=== PATIENT | female | born 1985 | race Caucasian/White ===

== ENCOUNTER 2021-07-24 14:50 | Outpatient (CLI) | payer OTHER, SELFPAY ==
[2021-07-24 15:06] LABS: Hematocrit 39.5 % (37.0-47.0); Hemoglobin 13.1 g/dL (12.0-15.0); Mean Corpuscular HGB Conc 33.2 g/dl (32-36); Mean Corpuscular Hemoglobin 32.3 pg (26-34); Mean Corpuscular Volume 97.3 fl (80-100); Mean Platelet Volume 9.7 fl (7.4-10.4); Platelet Count Result 247 k/mm3 (150-375); Red Blood Count 4.06 M/mm3 (4.2-5.4); Red Cell Distribution Width 12.1 % (11.5-14.5); White Blood Count 5.3 K/mm3 (4.5-10.0)
[2021-07-24 15:15] LABS: Alanine Aminotransferase 14 U/L (6-35); Albumin Level 4.3 g/dL (3.5-5.1); Alkaline Phosphatase 35 U/L (38-126); Anion Gap 7 mmol/L (8-16); Aspartate Amino Transferase 22 U/L (14-36); Bilirubin,Total 0.8 mg/dL (0.2-1.3); Blood Urea Nitrogen 9 mg/dL (7-17); Calcium 8.9 mg/dL (8.4-10.2); Carbon Dioxide 24 mmol/L (22-30); Chloride 107 mmol/L (98-107); Estimated Glomerular Filt Rate > 60; Glucose 87 mg/dL (65-110); Potassium 3.8 mmol/L (3.4-5.0); Sodium 138 mmol/L (137-145)
[2021-07-24 16:09] LABS: Thyroid Stimulating Hormone Reflex 0.999 uIU/mL (0.465-4.68)
[2021-07-28 16:50] LABS: Gliadin AB, IgG <1.0 U/mL (<15.0); Reticulin IgA Negative (Negative); TTG IGA AB <1.0 U/mL (<15.0)
== END 2021-07-24 14:51 | disposition home or self-care (01) ==
LOC: ANHLAB 14:54
PROVIDERS: PCP Family Medicine; Visit Provider Nurse Practitioner
DX: R11.0 Nausea (principal); R19.7 Diarrhea, unspecified; R10.9 Unspecified abdominal pain; Z98.84 Bariatric surgery status
CPT/HCPCS: 36415; 80053; 83516; 84443; 85027; 86255

== ENCOUNTER 2021-10-20 14:16 | Emergency (ER) | payer OTHER, SELFPAY ==
[2021-10-20 14:36] VITALS: BP 115/77; PULSE 81; RESP 14; TEMP 36.7; O2SAT 98
[2021-10-20] MEDS: KETOROLAC (*BKC) 60 MG/2 ML VIAL IM (16:09)
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
== END 2021-10-20 16:30 | disposition home or self-care (01) ==
PROVIDERS: Emergency Provider Emergency Medicine; PCP Nurse Practitioner Family
DX: S16.1XXA Strain of muscle, fascia and tendon at neck level, initial encounter (principal); S09.90XA Unspecified injury of head, initial encounter; F41.9 Anxiety disorder, unspecified; F32.9 Major depressive disorder, single episode, unspecified; V43.62XA Car passenger injured in collision with other type car in traffic accident, initial encounter
CPT/HCPCS: 96372; 99283; J1885

== ENCOUNTER 2021-10-24 12:52 | Emergency (ER) | payer OTHER, SELFPAY ==
--- NOTE | ~2021-10-24 | CT_ITS ---
EXAMINATION: CT brain wo con INDICATION: Persistent headache COMPARISON: None TECHNIQUE: Standard unenhanced head CT. The dose-length product (DLP) was 605.33 mGy-cm. The mA was a djusted according to patient size. Iterative reconstruction technique was employed. FINDINGS: There is no intracranial hemorrhage, acute infarction, or abnormal mass lesion. The ventric les are normal. There is no abnormal mass effect or midline shift. The morillo-white matter differentiat ion is normal. The basal cisterns are patent. The orbits are normal. The paranasal sinuses, mastoids and calvarium are normal. IMPRESSION: 1. No acute intracranial abnormality. Reviewed, dictated and finalized at location A.
[2021-10-24 13:00] VITALS: BP 129/86; PULSE 83; RESP 20; TEMP 36.7; O2SAT 98
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
[2021-10-24] MEDS: SODIUM CHLORIDE 0.9% IV 1,000 ML 999 ML IV CONT (13:39)
[2021-10-24] MEDS: diphenhydrAMINE HCl INJ 50 MG/ML VIAL 25 MG IV PUSH (13:40)
[2021-10-24] MEDS: PROCHLORPERAZINE EDISYLATE 10 MG/2 ML VIAL IV PUSH (13:40)
[2021-10-24] MEDS: KETOROLAC 30 MG/ML VIAL (*BKC) IV PUSH (16:22)
[2021-10-24 17:11] VITALS: BP 132/62; PULSE 78; RESP 20; O2SAT 99
== END 2021-10-24 17:12 | disposition home or self-care (01) ==
PROVIDERS: Emergency Provider Emergency Medicine; PCP Nurse Practitioner Family
DX: S06.0X0A Concussion without loss of consciousness, initial encounter (principal); V49.50XA Passenger injured in collision with unspecified motor vehicles in traffic accident, initial encounter; F12.90 Cannabis use, unspecified, uncomplicated; F41.8 Other specified anxiety disorders; F43.10 Post-traumatic stress disorder, unspecified; G47.00 Insomnia, unspecified; Z98.84 Bariatric surgery status; Z87.891 Personal history of nicotine dependence
CPT/HCPCS: 70450; 96361; 96374; 96375; 99284; J0780; J1200; J1885; J7030

== ENCOUNTER 2021-12-08 19:15 | Emergency (ER) | payer OTHER, SELFPAY ==
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
--- NOTE | 2021-12-08 19:24 | PC.NURSE ---
Walks well with steady gait. Appears NAD. Able to get up and down from the chair without difficulty.
[2021-12-08 19:27] VITALS: BP 119/77; PULSE 93; RESP 16; TEMP 37.3; O2SAT 100
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
== END 2021-12-08 20:16 | disposition home or self-care (01) ==
PROVIDERS: Emergency Provider Registered Nurse; PCP Nurse Practitioner Family
DX: M54.50 Low back pain, unspecified (principal); F41.9 Anxiety disorder, unspecified; F32.A Depression, unspecified; Z98.84 Bariatric surgery status
CPT/HCPCS: 72100; 99213; G0463

== ENCOUNTER 2022-01-28 10:34 | Outpatient (CLI) | payer OTHER, SELFPAY ==
--- NOTE | ~2022-01-28 | MR_ITS ---
EXAMINATION: MR lumbar spine wo con DATE: 01/28/2022 11:08 INDICATION: lumbar pain with radiculopathy both thighs . TECHNIQUE: Magnetic resonance imaging (MRI) of the lumbar spine was performed without intravenous con trast. Sequences included sagittal T2-weighted FSE, sagittal T2-weighted FS FSE, sagittal T1-weighted FSE, and axial T2-weighted FSE. COMPARISON: In the used to drink and the peel comp x-ray L-spine 12/08/2021 FINDINGS: Small volume free pelvic fluid, likely physiologic. The last fully formed and hydrated disc is designated L5-S1. The marrow signal is benign and homogenous. Conus terminates at L2. Loss of dis c height and hydration at L4-5 and L5-S1. The following disc levels are specifically discussed: T11-T12: The disc does not extend beyond the endplate margin. There is no facet joint osteoarthritis. There is no neural foraminal stenosis. There is no central canal stenosis. T12-L1: The disc does not extend beyond the endplate margin. There is mild facet joint osteoarthritis . There is no neural foraminal stenosis. There is no central canal stenosis. L1-L2: The disc does not extend beyond the endplate margin. There is no facet joint osteoarthritis. T here is mild neural foraminal stenosis. There is no central canal stenosis. L2-L3: The disc does not extend beyond the endplate margin. There is no facet joint osteoarthritis. T here is mild neural foraminal stenosis. There is no central canal stenosis. L3-L4: The disc does not extend beyond the endplate margin. There is moderate facet joint osteoarthri tis. There is no neural foraminal stenosis. There is no central canal stenosis. L4-L5: Mild diffuse disc bulge. There is moderate facet joint osteoarthritis. There is no neural fora dell stenosis. There is no central canal stenosis. L5-S1: Mild diffuse disc bulge with a focal transversely oriented posterior disc rent and a 4 mm cent ral posterior protrusion. There is mild facet joint osteoarthritis. There is no neural foraminal sten osis. There is no central canal stenosis. IMPRESSION: Lower lumbar degenerative disc disease, moderate at L5-S1. Multilevel mild and moderate facet arthrop athy. Reviewed, dictated and finalized at location K. ITUTIONAL CUSTODIAN IMPRESSION: Lower lumbar degenerative disc disease, moderate at L5-S1. Multilevel mild and moderate facet arthropathy.
== END 2022-01-28 10:35 ==
LOC: MICIMG 10:35
PROVIDERS: PCP Nurse Practitioner Family; Visit Provider Nurse Practitioner Family
DX: M51.17 Intervertebral disc disorders with radiculopathy, lumbosacral region (principal)
CPT/HCPCS: 72148

== ENCOUNTER 2022-02-02 08:00 | Outpatient (RCR) | payer OTHER, SELFPAY ==
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
--- NOTE | 2022-01-23 16:24 | PCPTNOTE ---
Late Entry- Note was not completed due to therapist error Note from treatment 01/12/2022 Pt was present for treatment and received manual therapy services as note indicated. STM to lumbar paraspinals, bilat QL mm, trapezius darrell upper trapezius mm After STM, pt PROM performed to c-spine L rotation with soft tissue traction to lower c-spine to improve rotation. Pt ended session with e-stim to cervical and lumbar spine in L sidelying x 20 min She reported improvement after session in her neck and back pain. While alignment of lower spine and pelvis appear to be improving, upper trap tension was greatly increased today. Pt also reports significant fatigue d/t outside factors and how busy she is. Pt will benefit from cont therapy to cont to improve her pain and function.
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
== END 2022-02-13 10:38 | disposition home or self-care (01) ==
LOC: ANHHIPT 08:00
PROVIDERS: PCP Nurse Practitioner Family; Visit Provider Nurse Practitioner
DX: S46.911D Strain of unspecified muscle, fascia and tendon at shoulder and upper arm level, right arm, subsequent encounter (principal)
CPT/HCPCS: 97014; 97110; 97140; 97162; G0283

== ENCOUNTER 2022-03-30 00:45 | Day surgery (SDC) | payer OTHER, SELFPAY ==
[2022-03-23 09:04] VITALS: BMI 25.4
--- NOTE | 2022-03-27 11:41 | PM.HPGS ---
History of Present Illness History of Present Illness Consent: Risks, benefits, and alternatives have been discussed and questions answered. Patient agrees to proceed with procedure. Chief complaint: diarrhea Narrative: Della Sylvester is a 36 year old female who had stated at A recent office visit she was having 3-4 loose watery bowel movements per day with urgency and at times with incontinence that has been ongoing at least 1 year.? She does have sharp lower abdominal cramping prior to bowel movement which then dissipates after a bowel movement. Colestipol did help her symptoms. apparently last month when her prescription was refilled, it was for 1 tablet each month. She said the pharmacy was supposed to call our office to clarify that but I do not see that they every did. She has had prior gastric sleeve surgery and had been bothered by nausea in the past. Review of Systems Review of Systems: All systems reviewed & are unremarkable except as noted in HPI and below PMFSH Past Medical History Medical History Anxiety Behcets syndrome delivery delivered Depressed Depression with anxiety Former smoker Insomnia Lumbar degenerative disc disease PTSD (post-traumatic stress disorder) Surgical History Surgical History H/O gastric sleeve (~2014) H/O hysterectomy for benign disease (~2011) no cervix, both ovaries remain Hx of arthroscopic knee surgery Hx of section 2010 Family History Family History Mother Alcohol abuse Father Heart disease Cerebrovascular accident Alcohol abuse Grandparent Cervical cancer Lung cancer Social History Social History Social History: lives with family ( 2 children) Smoking status: Current every day smoker Tobacco type: cigarettes Alcohol intake: never Alcohol use details: rarely Substance use: current Substance use type: marijuana Lack of Transportation: No Lack of Food: Never True Current Housing: I Have Housing Concerned About Future Housing: No Difficulty Paying Gas/Electric Bills: No Difficulty Paying for Meds: No Currently Unemployed: No Education: Associate Degree Difficulty w/ Childcare or Family Care: No Living arrangements: with family Additional living arrangements comments: Occupation/Education: occupation 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 Sexual Orientation (if Verbalized by the Patient): Straight or Heterosexual Spiritual care concerns: No Agree to blood products: Yes Meds Home Medications and Allergies Home Medications Medication Instructions Recorded Confirmed Type ondansetron 4 mg disintegrating 4 mg PO Q8H PRN nausea and 06/17/21 03/23/22 Rx tablet vomiting #1 tablet brexpiprazole 4 mg tablet (Rexulti) 4 mg PO DAILY #30 tabs 06/24/21 03/23/22 Rx bupropion HCl 150 mg 24 hr tablet, 150 mg PO QAM #30 tabs 06/24/21 03/23/22 Rx extended release topiramate 50 mg tablet 50 mg PO DAILY #30 tabs 06/24/21 03/23/22 Rx trazodone 150 mg tablet 150 mg PO QHS PRN sleep #30 tabs 06/24/21 03/23/22 Rx diazepam 2 mg tablet (Valium) 2 mg PO QHS PRN Anxiety 10/27/21 03/23/22 History multivitamin 1 tablet PO DAILY 10/27/21 03/23/22 History venlafaxine 75 mg tablet 75 mg PO DAILY 10/27/21 03/23/22 History omeprazole 40 mg capsule,delayed See Rx Instructions .Route 02/25/22 03/23/22 Rx release .COMPLEX #90 caps gabapentin 300 mg capsule 300 mg PO TID 03/23/22 03/23/22 History sumatriptan succinate 50 mg tablet 50 mg PO PRE-TRANSFUSION 03/23/22 03/23/22 History (Imitrex) colestipol 1 gram tablet 1 g PO DAILY #30 tabs 03/30/22 Rx Allergies Allergy/AdvReac Type Severity Reaction Status Date / Time Sulfa
[2022-03-30 11:39] VITALS: BP 107/67; PULSE 78; RESP 18; TEMP 36.6; O2SAT 99
[2022-03-30] MEDS: LACTATED RINGERS 1,000 ML 150 ML IV CONT (11:41)
--- NOTE | 2022-03-30 12:56 | WPDANESEPPF ---
Anes - Initial Pre Proc Eval Procedure: Operation Date: 03/30/22 13:00 Proposed Procedures p Colonoscopy - Juan Jose Hawley MD Date/Time: 03/30/22 12:56 Surgeon: Juan Jose Hawley MD Pre Op Diagnosis: diarrhea Patient Data Age: 36 Gender: F Height: 1.52 m Weight: 58 kg Last Vital Signs Temp 97.9 F 03/30/22 11:39 Pulse 78 03/30/22 11:39 Resp 18 03/30/22 11:39 BP 107/67 03/30/22 11:39 Pulse Ox 99 03/30/22 11:39 O2 Del Method Room Air 03/30/22 11:39 Allergies Allergy/AdvReac Type Severity Reaction Status Date / Time Sulfa (Sulfonamide Allergy Severe rash Verified 03/30/22 11:38 Antibiotics) nitrofurantoin AdvReac Severe vomiting Verified 03/30/22 11:38 [From Macrobid] Home Medications Medication Instructions Recorded Confirmed Type ondansetron 4 mg disintegrating 4 mg PO Q8H PRN nausea and 06/17/21 03/23/22 Rx tablet vomiting #1 tablet brexpiprazole 4 mg tablet (Rexulti) 4 mg PO DAILY #30 tabs 06/24/21 03/23/22 Rx bupropion HCl 150 mg 24 hr tablet, 150 mg PO QAM #30 tabs 06/24/21 03/23/22 Rx extended release topiramate 50 mg tablet 50 mg PO DAILY #30 tabs 06/24/21 03/23/22 Rx trazodone 150 mg tablet 150 mg PO QHS PRN sleep #30 tabs 06/24/21 03/23/22 Rx diazepam 2 mg tablet (Valium) 2 mg PO QHS PRN Anxiety 10/27/21 03/23/22 History multivitamin 1 tablet PO DAILY 10/27/21 03/23/22 History venlafaxine 75 mg tablet 75 mg PO DAILY 10/27/21 03/23/22 History omeprazole 40 mg capsule,delayed See Rx Instructions .Route 02/25/22 03/23/22 Rx release .COMPLEX #90 caps gabapentin 300 mg capsule 300 mg PO TID 03/23/22 03/23/22 History sumatriptan succinate 50 mg tablet 50 mg PO PRE-TRANSFUSION 03/23/22 03/23/22 History (Imitrex) colestipol 1 gram tablet 1 g PO DAILY #30 tabs 03/30/22 Rx Patient hx anesthesia problems: none Family hx anesthesia problems: none Results Review: All pre-operative results and documents have been reviewed as part of the pre-operative evaluation. [facility] Past Medical History Medical History Anxiety Behcets syndrome delivery delivered Depressed Depression with anxiety Former smoker Insomnia Lumbar degenerative disc disease PTSD (post-traumatic stress disorder) Surgical History Surgical History H/O gastric sleeve (~2014) H/O hysterectomy for benign disease (~2011) no cervix, both ovaries remain Hx of arthroscopic knee surgery Hx of section 2008, 2010 Family History Family History Mother Alcohol abuse Father Heart disease Cerebrovascular accident Alcohol abuse Grandparent Cervical cancer Lung cancer Social History Social History Social History: lives with family ( 2 children) Smoking status: Current every day smoker Tobacco type: cigarettes Alcohol intake: never Alcohol use details: rarely Substance use: current Substance use type: marijuana Lack of Transportation: No Lack of Food: Never True Current Housing: I Have Housing Concerned About Future Housing: No Difficulty Paying Gas/Electric Bills: No Difficulty Paying for Meds: No Currently Unemployed: No Education: Associate Degree Difficulty w/ Childcare or Family Care: No Living arrangements: with family Additional living arrangements comments: Occupation/Education: occupation 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
[2022-03-30 13:38] VITALS: BP 87/55; PULSE 57; RESP 18; O2SAT 100
[2022-03-30 13:48] VITALS: BP 91/56; PULSE 64; RESP 15; O2SAT 100
[2022-03-30 13:58] VITALS: BP 96/68; PULSE 60; RESP 22; O2SAT 100
== END 2022-03-30 14:05 | disposition home or self-care (01) ==
PROVIDERS: PCP Nurse Practitioner Family; Visit Provider Internal Medicine Gastroenterology
PROC: 0DJD8ZZ Inspection of Lower Intestinal Tract, Via Natural or Artificial Opening Endoscopic (ICD-10-PCS; CPT 45378; principal; 2022-03-30 13:00)
DX: R19.7 Diarrhea, unspecified (principal); K62.1 Rectal polyp; M35.2 Behcet's disease; F41.8 Other specified anxiety disorders; F43.10 Post-traumatic stress disorder, unspecified; Z98.84 Bariatric surgery status; F17.210 Nicotine dependence, cigarettes, uncomplicated; F12.90 Cannabis use, unspecified, uncomplicated
CPT/HCPCS: 45385; 45380; 88305; J2001; J2704; J7120

== ENCOUNTER 2022-05-18 14:18 | Outpatient (CLI) | payer OTHER, SELFPAY ==
[2022-05-18 15:04] LABS: Appearance Urine Clear (Clear); Bilirubin Urine Negative (Negative); Blood Urine Negative (Negative); Color Urine Yellow (Yellow); Glucose Urine UA Negative (Negative); Ketones Urine Negative (Negative); Leukocyte Esterase Ur Negative LEU/UL (Negative); Nitrate Urine Negative (Negative); Protein Urine Negative (Negative); Specific Grav Ur 1.004 (1.001-1.035); Urobilinogen Urine 0.2 mg/dL (<2.0)
[2022-05-18 15:14] LABS: Alanine Aminotransferase 26 U/L (6-35); Albumin Level 4.4 g/dL (3.5-5.1); Alkaline Phosphatase 36 U/L (38-126); Anion Gap 6 mmol/L (8-16); Aspartate Amino Transferase 28 U/L (14-36); Blood Urea Nitrogen 6 mg/dL (7-17); Calcium 9.1 mg/dL (8.4-10.2); Carbon Dioxide 28 mmol/L (22-30); Chloride 102 mmol/L (98-107); Estimated Glomerular Filt Rate > 60; Glucose 84 mg/dL (65-110); Potassium 4.1 mmol/L (3.4-5.0); Sodium 136 mmol/L (137-145)
[2022-05-18 15:26] LABS: Iron 104 ug/dL (37-170)
[2022-05-18 15:35] LABS: Percent Iron Saturation 27 % (20-50)
[2022-05-18 15:36] LABS: Add Urine Microscopic? NO
[2022-05-18 15:44] LABS: Thyroid Stimulating Hormone 0.531 uIU/mL (0.465-4.680)
[2022-05-18 16:20] LABS: Folic Acid 17.7 ng/mL (2.76->20)
== END 2022-05-18 14:19 | disposition home or self-care (01) ==
LOC: ANHLAB 14:20
PROVIDERS: PCP Nurse Practitioner Family; Visit Provider Nurse Practitioner Family
DX: R32 Unspecified urinary incontinence (principal); R85.7 Abnormal histological findings in specimens from digestive organs and abdominal cavity; K52.9 Noninfective gastroenteritis and colitis, unspecified; Z98.84 Bariatric surgery status
CPT/HCPCS: 36415; 80053; 81003; 81376; 81382; 82607; 82746; 83540; 83550; 84443

== ENCOUNTER 2022-06-12 08:20 | Emergency (ER) | payer OTHER, SELFPAY ==
--- NOTE | 2022-06-12 08:23 | ED.FEMALEGU ---
HPI - Female Genitourinary General Chief complaint: Urogenital-Female Stated complaint: Female Urogenital Time Seen by Provider: 06/12/22 08:44 Source: patient and RN notes reviewed Mode of arrival: ambulatory Limitations: no limitations History of Present Illness MD elicited complaint: UTI Related Data Home Medications Medication Instructions Recorded Confirmed diazepam 2 mg tablet (Valium) 2 mg PO QHS PRN Anxiety 10/27/21 06/12/22 multivitamin 1 tablet PO DAILY 10/27/21 06/12/22 venlafaxine 75 mg tablet 75 mg PO DAILY 10/27/21 06/12/22 sumatriptan succinate 50 mg tablet 50 mg PO PRE-TRANSFUSION 03/23/22 06/12/22 (Imitrex) gabapentin 300 mg capsule 600 mg PO TID 05/18/22 06/12/22 Allergies Allergy/AdvReac Type Severity Reaction Status Date / Time nitrofurantoin AdvReac Intermediate vomiting Verified 06/12/22 08:27 [From Macrobid] Sulfa (Sulfonamide AdvReac Mild rash Verified 06/12/22 08:27 Antibiotics) Review of Systems Review of Systems: CONSTITUTIONAL: Denies malaise, chills, sweats, or fever. CARDIOVASCULAR: Denies chest pain, palpitations, or edema. RESPIRATORY: Denies cough or dyspnea. GASTROINTESTINAL: Denies abdominal pain, nausea, vomiting, diarrhea GENITOURINARY: Reports dysuria, frequency, urgency, suprapubic pressure. Denies flank pain or hematuria. SKIN: Denies rash or itching. MUSCULOSKELETAL: Denies back pain or myalgia. All systems reviewed & are unremarkable except as noted in HPI and below PMFSH Past Medical History Medical History (Updated 06/12/22 @ 08:57 by Leah Wyman NP) Anorexia Anxiety Behcets syndrome delivery delivered Depressed Depression with anxiety Former smoker Insomnia Lumbar degenerative disc disease PTSD (post-traumatic stress disorder) Right lower quadrant pain Urinary incontinence Surgical History Surgical History H/O gastric sleeve (~2014) H/O hysterectomy for benign disease (~2011) no cervix, both ovaries remain Hx of arthroscopic knee surgery Hx of section 2008, 2010 Family History Family History Mother Alcohol abuse Father Heart disease Cerebrovascular accident Alcohol abuse Grandparent Cervical cancer Lung cancer Social History Social History Social History: lives with family ( 2 children) Smoking status: Current every day smoker Tobacco type: cigarettes Alcohol intake: never Alcohol use details: rarely Substance use: current Substance use type: marijuana Lack of Transportation: No Lack of Food: Never True Current Housing: I Have Housing Concerned About Future Housing: No Difficulty Paying Gas/Electric Bills: No Difficulty Paying for Meds: No Currently Unemployed: No Education: Associate Degree Difficulty w/ Childcare or Family Care: No Living arrangements: with family Additional living arrangements comments: Occupation/Education: occupation 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 There is no relevant family history pertinent to the presenting complaint Exam Narrative: GENERAL: Well-appearing, well-nourished, and in no acute distress. HEAD: Normocephalic. EYES: PERRLA, conjunctivae clear. NECK: Supple. No lymphadenopathy CHEST: Clear to auscultation. No respiratory distress. HEART: Regular rate and rhythm. ABDOMEN: Soft, nontender upon palpation, nondistended, normal active bowel sounds, no palpable or pulsatile masses, no guarding. No CVA tenderness SKIN: Warm, dry, no rash. NEURO: Alert and oriente
[2022-06-12 08:40] VITALS: BP 105/71; PULSE 97; RESP 18; TEMP 36.7; O2SAT 100
--- NOTE | 2022-06-14 12:07 | PC.NURSE ---
FINAL URINE CULTURE RESULT: GREATERE THAN 100,000 CFU/ML OF E COLI. PER C&S PT IS ON AUGMENTIN, NO FURTHER ACTION NEEDED.
== END 2022-06-12 09:07 | disposition home or self-care (01) ==
PROVIDERS: Emergency Provider Nurse Practitioner; PCP Nurse Practitioner Family
DX: N39.0 Urinary tract infection, site not specified (principal); R31.9 Hematuria, unspecified; F41.9 Anxiety disorder, unspecified; F32.A Depression, unspecified; F17.210 Nicotine dependence, cigarettes, uncomplicated
CPT/HCPCS: 81003; 87077; 87086; 87186; 99213; G0463

== ENCOUNTER 2022-08-17 19:30 | Observation (INO) | payer OTHER, SELFPAY ==
--- NOTE | ~2022-08-17 | MR_ITS ---
EXAMINATION: MR lumbar spine wo/w con DATE: 08/18/2022 07:09 INDICATION: Incontinence. Bilateral leg weakness. TECHNIQUE: Magnetic resonance imaging (MRI) of the lumbar spine was performed without and with 12 mL MultiHance intravenous contrast. COMPARISON: CT thoracic spine 08/17/2022 FINDINGS: There is 5 degrees levocurvature of lumbar spine. Vertebral body heights are normal. There is mildly decreased disc height at L4-L5 and L5-S1. The distal spinal cord signal intensity is normal . The conus medullaris is at L2. The following disc levels are specifically discussed: L1-L2: The disc does not extend beyond the endplate margin. There is no facet joint osteoarthritis. T here is no neural foraminal stenosis. There is no central canal stenosis. L2-L3: The disc does not extend beyond the endplate margin. There is no facet joint osteoarthritis. T here is no neural foraminal stenosis. There is no central canal stenosis. L3-L4: The disc does not extend beyond the endplate margin. There is mild bilateral facet joint osteo arthritis. There is no neural foraminal stenosis. There is no central canal stenosis. L4-L5: The disc is bulging and has an annular fissure. There is mild bilateral facet joint osteoarthr itis. There is mild bilateral neural foraminal stenosis. There is no central canal stenosis. L5-S1: There is a central extrusion. There is mild bilateral facet joint osteoarthritis. There is no neural foraminal stenosis. There is mild central canal stenosis. IMPRESSION: 1. Mild lumbar spondylosis. Reviewed, dictated and finalized at location A. IMPRESSION: 1. Mild lumbar spondylosis.
--- NOTE | ~2022-08-17 | CT_ITS ---
EXAMINATION: CT cervical spine wo con DATE: 08/17/2022 21:13 INDICATION: history herniated disc TECHNIQUE: Computed tomography (CT) of the cervical spine was performed without intravenous contrast. Automated exposure control and iterative reconstruction technique were employed. The dose-length pro duct was 209.10 mGy-cm. COMPARISON: None. FINDINGS: Vertebral Body Alignment: Intact. Mild straightening of the upper cervical spine which can occur with positioning or muscle spasm. Craniocervical and atlantoaxial alignment: Mild degenerative change. Alignment intact. Osseous structures/fracture: No evidence of a lytic or blastic process in the visualized spine. No e vidence of acute fracture. . Cervical soft tissues: The paraspinal soft tissues planes are maintained. Degenerative changes: Mild multilevel degenerative disc disease. No severe central canal or neural fo raminal narrowing. IMPRESSION: No acute fracture or traumatic malalignment in the cervical spine. Reviewed, dictated and finalized at location K.
--- NOTE | ~2022-08-17 | CT_ITS ---
EXAMINATION: CT thoracic lumbar wo con DATE: 08/17/2022 21:17 INDICATION: tendnerness . TECHNIQUE: Computed tomography (CT) of the thoracic and lumbar spine was performed without intravenou s contrast. Automated exposure control and iterative reconstruction technique were employed. The dose -length product was 694.98 mGy-cm. COMPARISON: None FINDINGS: THORACIC SPINE: Vertebral body alignment intact. Vertebral body heights preserved. Multilevel mild disc space narrowi ng and marginal osteophytosis in the midthoracic spine. 2 mm right paracentral disc protrusion at T6- 7. 3 mm central protrusion at T7-8. No severe central canal or neural foraminal narrowing. No traumat ic malalignment or fracture. Visualized lung parenchyma is clear. Prior gastric surgery. LUMBAR SPINE: 5 nonrib-bearing lumbar-type vertebral bodies. Pedicles intact. Normal vertebral body alignment. Vert ebral body heights preserved. Mild disc space narrowing at L4-5 with a mild diffuse bulge and mild ri ght neural foraminal narrowing. Moderate disc space narrowing at L5-S1 with a broad-based 5 mm centra l protrusion and mild central canal stenosis. No severe central canal narrowing or severe neural fora dell narrowing. Normal facets and posterior elements. Small volume free pelvic fluid, within physiol ogic range. Medullary nephrocalcinosis. Small volume of scattered bubbles of subcutaneous gas at the level of L3-4 posteriorly. Small gas collection in the left S1 neural foramen and anterior to L5 and the bilateral upper sacrum, possibly within or adjacent to L5 nerve roots. IMPRESSION: 1. No acute fracture or traumatic malalignment detected in the thoracic or lumbar spine. 2. Multilevel mild and moderate degenerative disc changes, detailed above. Reviewed, dictated and finalized at location K. IMPRESSION: 1. No acute fracture or traumatic malalignment detected in the thoracic or lumb ar spine. 2. Multilevel mild and moderate degenerative disc changes, detailed above.
[2022-08-17 19:25] VITALS: BP 128/84; PULSE 93; RESP 16; TEMP 36.6; O2SAT 100
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
[2022-08-17] MEDS: Please add drug allergy info to patient profile. 1 EACH XX (20:10)
[2022-08-17] MEDS: HYDROmorphone HCL INJ (*CRX) 1 MG/ML SYR 0.5 MG IV PUSH ×2 (20:10→21:37)
[2022-08-17] MEDS: ONDANSETRON INJ 4 MG/2 ML VIAL IV PUSH (20:11)
[2022-08-17 20:22] LABS: Hematocrit 39.5 % (37.0-47.0); Hemoglobin 13.7 g/dL (12.0-15.0); Mean Corpuscular HGB Conc 34.7 g/dl (32-36); Mean Corpuscular Volume 95.2 fl (80-100); Platelet Count Result 282 k/mm3 (150-375); Red Blood Count 4.15 M/mm3 (4.2-5.4); Red Cell Distribution Width 11.8 % (11.5-14.5); White Blood Count 10.4 K/mm3 (4.5-10.0)
[2022-08-17 20:36] LABS: Alanine Aminotransferase 22 U/L (6-35); Albumin Level 4.5 g/dL (3.5-5.1); Alkaline Phosphatase 34 U/L (38-126); Anion Gap 8 mmol/L (8-16); Aspartate Amino Transferase 24 U/L (14-36); Bilirubin,Total 0.8 mg/dL (0.2-1.3); Blood Urea Nitrogen 10 mg/dL (7-17); CRP < 0.5 mg/dL (<1.0); Calcium 9.1 mg/dL (8.4-10.2); Carbon Dioxide 25 mmol/L (22-30); Chloride 105 mmol/L (98-107); Estimated CRCL calculation 76 ml/min; Estimated Glomerular Filt Rate > 60; Glucose 114 mg/dL (65-110); Potassium 3.6 mmol/L (3.4-5.0); Sodium 138 mmol/L (137-145)
[2022-08-17 20:51] LABS: Appearance Urine Clear (Clear); Bilirubin Urine Negative (Negative); Blood Urine Negative (Negative); Color Urine Yellow (Yellow); Glucose Urine UA Negative (Negative); Ketones Urine Negative (Negative); Leukocyte Esterase Ur Negative LEU/UL (Negative); Nitrate Urine Negative (Negative); Protein Urine Negative (Negative); Specific Grav Ur 1.006 (1.001-1.035); Urobilinogen Urine 0.2 mg/dL (<2.0); pH Urine 7.5 (5.0-9.0)
--- NOTE | 2022-08-17 21:04 | PC.NURSE ---
Patient stated she has had a hysterectomy. Notified CT.
[2022-08-17 21:05] VITALS: BP 117/76; PULSE 71; PULSE 78; RESP 13; O2SAT 99
[2022-08-17 21:06] LABS: Add Urine Microscopic? NO
[2022-08-17 21:20] LABS: Erythrocyte Sedimentation Rate 14 mm/hr (0-20)
[2022-08-17 21:21] LABS: Pregnancy On Board Control Positive; Urine Pregnancy Test Negative
[2022-08-17 21:33] LABS: Band Neutrophils Percent 3 % (0-6); Lymphocytes Absolute Manual 0.41 K/mm3 (1.1-4.5); Monocytes Percent Manual 1 % (3-9); Neutrophils Absolute Manual 9.88 K/mm3 (1.7-7.2); Neutrophils Percent Manual 92 % (46-73); Platelet Estimate Adequate (Adequate); Total Cells Counted 100
[2022-08-17 21:34] LABS: Schistocytes None Seen (NORMAL)
[2022-08-17 22:23] VITALS: BP 107/72; PULSE 72; RESP 14; O2SAT 98
[2022-08-17 23:01] VITALS: BP 116/79; PULSE 75; RESP 19; O2SAT 100
[2022-08-17 23:51] VITALS: BP 100/63; PULSE 66; RESP 15; O2SAT 100
[2022-08-17] MEDS: LIDOCAINE 5% PATCH 1 PATCH TRANSDERM (23:51)
[2022-08-17 23:59] LABS: Amphetamine Screen Urine Negative (Negative); Barbiturate Screen Urine Negative (Negative); Benzodiazepines Screen Urine Negative (Negative); Cannabinoid Screen Urine Positive (Negative); Cocaine Screen Urine Negative (Negative); Methadone Screen Urine Negative (Negative); Opiate Screen Urine Negative (Negative); Phencyclidine Screen Urine Negative (Negative)
[2022-08-18 01:01] VITALS: BP 105/73; PULSE 65; RESP 13; O2SAT 100
[2022-08-18 01:15] VITALS: BP 98/61; PULSE 68; RESP 16; TEMP 36.4; O2SAT 98
[2022-08-18 01:20] VITALS: BMI 25.6
--- NOTE | 2022-08-18 01:31 | ADMGEN ---
This patient, Della Sylvester, was admitted to [address] [facility] Surg Room 302-01 at 0110. Patient/family oriented to hospital policies and general routines including ID bracelet, bed and alarms, visiting hours, pain management, procedures, bathroom and other care routines, personal items, smoking policy, room service/diet, and visiting hours. Information on how to activate the Rapid Response Team has been discussed. Patient/Family are encouraged to report perceived risks to care and to ask questions if they do not understand what they are told or what they should do.
[2022-08-18 06:00] VITALS: BP 102/72; PULSE 77; RESP 16; TEMP 36.6; O2SAT 100
[2022-08-18] MEDS: traMADol HCL (*CRX) 50 MG TABLET PO (06:09)
[2022-08-18 07:29] VITALS: O2SAT 96
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
[2022-08-18] MEDS: LIDOCAINE 5% PATCH 1 PATCH TRANSDERM (08:54)
--- NOTE | 2022-08-18 12:15 | PM.IMHP ---
H&P: HPI History of Present Illness Date/Time: 08/18/22 12:15 Chief Complaint: this was an aborted document PMFSH Past Medical History Medical History Anorexia Anxiety Behcets syndrome Celiac disease delivery delivered Chronic diarrhea Degenerative disc disease Depressed Depression with anxiety Former smoker Herniated disc Insomnia Lumbar degenerative disc disease PTSD (post-traumatic stress disorder) Right lower quadrant pain Urge incontinence Urinary incontinence Vapes nicotine containing substance Surgical History Surgical History H/O gastric sleeve H/O gastric sleeve (~2014) H/O hysterectomy for benign disease (~2011) no cervix, both ovaries remain History of History of hysterectomy Hx of arthroscopic knee surgery Hx of section 2008, 2010 S/P correction of deviated nasal septum Family History Family History Father Cerebrovascular accident Heart disease Mother Alcohol abuse Father Heart disease Cerebrovascular accident Alcohol abuse Grandparent Cervical cancer Lung cancer Social History Social History Social History: Lives at home with her . Independent with her daily activities. PCP: Dayami Jackson NP. Full code. Smoking packs per day: 1 Smoking cigarettes per day: 20.0 Years smoked: 15 Smoking pack-years: 15.00 Smoking status: Current every day smoker Tobacco type: cigarettes and e-cigarettes/vaping Additional smoking assessment comments: Quit cigarettes 1 year ago, vapes daily Alcohol intake: current Alcohol use details: Once monthly alcohol use Substance use: current Substance use type: marijuana Last use: Daily use Lack of Transportation: No Lack of Food: Never True Current Housing: I Have Housing Concerned About Future Housing: No Difficulty Paying Gas/Electric Bills: No Difficulty Paying for Meds: No Currently Unemployed: No Education: Associate Degree Difficulty w/ Childcare or Family Care: No Living arrangements: with family Additional living arrangements comments: Occupation/Education: occupation 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 Sexual Orientation (if Verbalized by the Patient): Straight or Heterosexual Spiritual care concerns: No Agree to blood products: Yes Meds Home Medications and Allergies Home Medications Medication Instructions Recorded Confirmed Type brexpiprazole 4 mg tablet (Rexulti) 4 mg PO DAILY 08/18/22 08/18/22 History bupropion HCl 150 mg 24 hr tablet, 300 mg PO DAILY 08/18/22 08/18/22 History extended release colestipol 1 gram tablet 1 g PO BID 08/18/22 08/18/22 History ondansetron 4 mg disintegrating 4 mg PO PRN 08/18/22 08/18/22 History tablet topiramate 50 mg tablet 50 mg PO HS 08/18/22 08/18/22 History venlafaxine 75 mg capsule,extended 75 mg PO HS 08/18/22 08/18/22 History release 24 hr gabapentin 600 mg tablet 600 mg PO TID 11/17/22 History omeprazole 40 mg capsule,delayed 40 mg PO DAILY 11/17/22 History release sumatriptan succinate 50 mg tablet 50 mg PO PRE-TRANSFUSION PRN 11/17/22 History (Imitrex) trazodone 150 mg tablet 75 mg PO QHS 11/17/22 History Allergies Allergy/AdvReac Type Severity Reaction Status Date / Time nitrofurantoin AdvReac n/v/d Verified 11/17/22 07:30 [From Macrobid] Sulfa (Sulfonamide AdvReac Photosensit Verified 11/17/22 07:30 Antibiotics) ivity Vital Signs Vital Signs - 24 hr 08/17/22 19:25 08/17/22 21:05 08/17/22 21:05 Temperature 97.9 F Pulse Rate 93 78 71 Respiratory Rate 16 13 Blood Pressure 128/84 117/76 Pulse Oximetry 100 99 Oxygen Delivery Room Air 08/17/22 22:23 08/17/22 23:01 08/17/22 23:51 Temperature Pulse Rate 72 75 66 Respirat
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
== END 2022-08-18 12:50 | disposition home or self-care (01) ==
LOC: ANHED 20:47 → ANH3MEDSUR 08-18 01:46
PROVIDERS: Admitting Provider Internal Medicine; Emergency Provider Physician Assistant; PCP Nurse Practitioner Family; Visit Provider Physician Assistant
DX: M54.40 Lumbago with sciatica, unspecified side (principal); M51.37 Other intervertebral disc degeneration, lumbosacral region; R32 Unspecified urinary incontinence; R20.0 Anesthesia of skin; R20.2 Paresthesia of skin; M21.372 Foot drop, left foot; M62.81 Muscle weakness (generalized); R26.2 Difficulty in walking, not elsewhere classified; M50.20 Other cervical disc displacement, unspecified cervical region; M51.36 Other intervertebral disc degeneration, lumbar region; M47.816 Spondylosis without myelopathy or radiculopathy, lumbar region; K52.9 Noninfective gastroenteritis and colitis, unspecified; Z98.84 Bariatric surgery status; F17.290 Nicotine dependence, other tobacco product, uncomplicated; F12.90 Cannabis use, unspecified, uncomplicated; Z79.899 Other long term (current) drug therapy
CPT/HCPCS: 36415; 72125; 72128; 72131; 72158; 80053; 80307; 81003; 81025; 85025; 85652; 86140; 96374; 96375; 96376; 99285; A9270; A9577; G0378; J1170; J2405

== ENCOUNTER 2022-09-23 08:47 | Outpatient (CLI) | payer OTHER, SELFPAY ==
[2022-09-23 14:45] LABS: Basophils Percent Auto 0.8 % (0.2-1.2); Eosinophils Absolute Auto 0.1 K/mm3 (0-0.3); Eosinophils Percent Auto 2.5 % (0-4.4); Hematocrit 41.1 % (37.0-47.0); Hemoglobin 13.3 g/dL (12.0-15.0); Immature Granulocyte Absolute 0.01 K/mm3 (0.00-0.031); Immature Granulocyte Percent A 0.3 % (0-0.5); Lymphocytes Absolute Auto 1.37 K/mm3 (0.9-3.2); Lymphocytes Percent Auto 38.3 % (18.3-44.2); Mean Corpuscular HGB Conc 32.4 g/dl (32-36); Mean Corpuscular Hemoglobin 32.6 pg (26-34); Mean Corpuscular Volume 100.7 fl (80-100); Mean Platelet Volume 10.2 fl (7.4-10.4); Monocytes Absolute Auto 0.4 K/mm3 (0.1-0.6); Monocytes Percent Auto 10.3 % (2.6-8.5); Neutrophils Absolute Auto 1.7 K/mm3 (1.3-6.7); Neutrophils Percent Auto 47.8 % (45.5-73.1); Platelet Count Result 288 k/mm3 (150-375); Red Blood Count 4.08 M/mm3 (4.2-5.4); White Blood Count 3.6 K/mm3 (4.5-10.0)
[2022-09-23 14:59] LABS: Appearance Urine Cloudy (Clear); Bacteria Urine None Seen /hpf; Bilirubin Urine Negative (Negative); Blood Urine Negative (Negative); Color Urine Yellow (Yellow); Glucose Urine UA Negative (Negative); Ketones Urine Negative (Negative); Leukocyte Esterase Ur Negative LEU/UL (NEGATIVE); Nitrate Urine Negative (Negative); Non Pathogenic Casts 0-2; Protein Urine Negative (Negative); RBC Urine 0-2 /hpf (0-2); Specific Grav Ur 1.019 (1.001-1.035); Squamous Epithelial Cell Urine None seen /hpf (Few); Urobilinogen Urine 0.2 mg/dL (<2.0); WBC Urine 0-5 /hpf (0-3)
[2022-09-23 15:06] LABS: Add Urine Microscopic? YES
[2022-09-23 15:51] LABS: Alanine Aminotransferase 16 U/L (6-35); Alkaline Phosphatase 33 U/L (38-126); Anion Gap 5 mmol/L (8-16); Aspartate Amino Transferase 38 U/L (14-36); Bilirubin,Total 0.6 mg/dL (0.2-1.3); Blood Urea Nitrogen 11 mg/dL (7-17); Calcium 8.5 mg/dL (8.4-10.2); Carbon Dioxide 30 mmol/L (22-30); Chloride 106 mmol/L (98-107); Cholesterol 187 mg/dL (0-200); Estimated Glomerular Filt Rate > 60; Glucose 76 mg/dL (65-110); HDL Direct 65 mg/dL; Potassium 3.9 mmol/L (3.4-5.0); Sodium 141 mmol/L (137-145); Triglycerides 54 mg/dL (<150)
[2022-09-23 16:05] LABS: LDL Cholesterol Direct 99 mg/dL
== END 2022-09-23 08:48 | disposition home or self-care (01) ==
LOC: ANHGOSHLAB 08:52
PROVIDERS: PCP Nurse Practitioner Family; Visit Provider Nurse Practitioner Family
DX: M48.9 Spondylopathy, unspecified (principal); Z01.818 Encounter for other preprocedural examination
CPT/HCPCS: 36415; 80053; 80061; 81001; 84443; 85025

== ENCOUNTER 2022-10-06 17:05 | Emergency (ER) | payer OTHER, SELFPAY ==
--- NOTE | ~2022-10-06 | XR_ITS ---
EXAMINATION: XR chest 2V Exam Date/Time: 10/06/2022 17:25 CDT HISTORY: syncope WITH RIGHT SIDE CHEST PAIN X 1 DAY Comparison: None. RESULT: Lines, tubes, and devices: Interbody devices in the lower cervical spine. Lungs and pleura: Clear. Cardiomediastinal silhouette: Unremarkable. Other: No acute osseous or upper abdominal finding. IMPRESSION: No acute cardiopulmonary process. Reviewed, dictated and finalized at location K.
[2022-10-06 17:02] VITALS: BP 126/82; PULSE 91; RESP 14; TEMP 37; O2SAT 97
--- NOTE | 2022-10-06 17:14 | ECG_ITS ---
Measurements Intervals [place] Rate: 84 P: 42 [place]: 129 QRS: 52 QRSD: 84 T: 31 QT: 346 QTc: 410 Interpretive Statements SINUS RHYTHM NO PREVIOUS ECG AVAILABLE FOR COMPARISON Electronically Signed On 10-07-2022 19:31:25 CDT by Emmy Lara M.D.
[2022-10-06 17:26] LABS: Basophils Percent Auto 0.5 % (0.2-1.2); Eosinophils Absolute Auto 0.1 K/mm3 (0-0.3); Eosinophils Percent Auto 1.5 % (0-4.4); Hematocrit 32.8 % (37.0-47.0); Hemoglobin 11.1 g/dL (12.0-15.0); Immature Granulocyte Absolute 0.01 K/mm3 (0.00-0.031); Immature Granulocyte Percent A 0.2 % (0-0.5); Lymphocytes Absolute Auto 1.47 K/mm3 (0.9-3.2); Lymphocytes Percent Auto 26.9 % (18.3-44.2); Mean Corpuscular HGB Conc 33.8 g/dl (32-36); Mean Corpuscular Hemoglobin 32.8 pg (26-34); Mean Platelet Volume 9.4 fl (7.4-10.4); Monocytes Absolute Auto 0.6 K/mm3 (0.1-0.6); Monocytes Percent Auto 10.4 % (2.6-8.5); Neutrophils Absolute Auto 3.3 K/mm3 (1.3-6.7); Neutrophils Percent Auto 60.5 % (45.5-73.1); Platelet Count Result 265 k/mm3 (150-375); Red Blood Count 3.38 M/mm3 (4.2-5.4); Red Cell Distribution Width 11.5 % (11.5-14.5); White Blood Count 5.5 K/mm3 (4.5-10.0)
[2022-10-06 17:38] LABS: Alanine Aminotransferase 14 U/L (6-35); Albumin Level 3.6 g/dL (3.5-5.1); Alkaline Phosphatase 40 U/L (38-126); Anion Gap 3 mmol/L (8-16); Aspartate Amino Transferase 21 U/L (14-36); Bilirubin,Total 0.4 mg/dL (0.2-1.3); Blood Urea Nitrogen 9 mg/dL (7-17); Calcium 8.4 mg/dL (8.4-10.2); Carbon Dioxide 27 mmol/L (22-30); Chloride 100 mmol/L (98-107); Estimated CRCL calculation 80 ml/min; Estimated Glomerular Filt Rate > 60; Glucose 87 mg/dL (65-110); Potassium 3.5 mmol/L (3.4-5.0); Sodium 130 mmol/L (137-145)
[2022-10-06 17:48] LABS: Appearance Urine Clear (Clear); Bilirubin Urine Negative (Negative); Blood Urine Negative (Negative); Color Urine Yellow (Yellow); Glucose Urine UA Negative (Negative); Ketones Urine Negative (Negative); Leukocyte Esterase Ur Negative LEU/UL (Negative); Nitrate Urine Negative (Negative); Protein Urine Negative (Negative); Specific Grav Ur 1.015 (1.001-1.035); Urobilinogen Urine 0.2 mg/dL (<2.0); pH Urine 7.5 (5.0-9.0)
[2022-10-06 17:53] LABS: Add Urine Microscopic? NO
[2022-10-06 18:03] VITALS: BP 112/72; PULSE 80
[2022-10-06 18:04] VITALS: BP 114/73; PULSE 86
[2022-10-06 18:05] VITALS: BP 116/80; PULSE 97
[2022-10-06] MEDS: SODIUM CHLORIDE 0.9% IV 1,000 ML 999 ML IV CONT (18:07)
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
[2022-10-06 20:00] VITALS: BP 126/78; PULSE 82; RESP 16; O2SAT 99
== END 2022-10-06 20:02 | disposition home or self-care (01) ==
PROVIDERS: Emergency Provider Emergency Medicine; PCP Nurse Practitioner Family
DX: R55 Syncope and collapse (principal); F17.210 Nicotine dependence, cigarettes, uncomplicated; Z79.899 Other long term (current) drug therapy
CPT/HCPCS: 36415; 71046; 80053; 81003; 81025; 85025; 93005; 96360; 99283; J7030

== ENCOUNTER 2022-11-17 10:42 | Outpatient (CLI) | payer OTHER, SELFPAY ==
[2022-11-17 13:04] LABS: Appearance Urine Clear (Clear); Bilirubin Urine Negative (Negative); Blood Urine Negative (Negative); Color Urine Yellow (Yellow); Glucose Urine UA Negative (Negative); Ketones Urine Negative (Negative); Leukocyte Esterase Ur Negative LEU/UL (NEGATIVE); Nitrate Urine Negative (Negative); Protein Urine Negative (Negative); Specific Grav Ur 1.003 (1.001-1.035); Urobilinogen Urine 0.2 mg/dL (<2.0)
[2022-11-17 13:06] LABS: Basophils Percent Auto 1.2 % (0.2-1.2); Eosinophils Absolute Auto 0.1 K/mm3 (0-0.3); Eosinophils Percent Auto 1.8 % (0-4.4); Hematocrit 40.9 % (37.0-47.0); Hemoglobin 13.3 g/dL (12.0-15.0); Lymphocytes Absolute Auto 1.68 K/mm3 (0.9-3.2); Lymphocytes Percent Auto 49.1 % (18.3-44.2); Mean Corpuscular HGB Conc 32.5 g/dl (32-36); Mean Corpuscular Hemoglobin 32.7 pg (26-34); Mean Corpuscular Volume 100.5 fl (80-100); Mean Platelet Volume 10.4 fl (7.4-10.4); Monocytes Absolute Auto 0.4 K/mm3 (0.1-0.6); Monocytes Percent Auto 11.1 % (2.6-8.5); Neutrophils Absolute Auto 1.3 K/mm3 (1.3-6.7); Neutrophils Percent Auto 36.8 % (45.5-73.1); Platelet Count Result 303 k/mm3 (150-375); Red Blood Count 4.07 M/mm3 (4.2-5.4); Red Cell Distribution Width 11.7 % (11.5-14.5); White Blood Count 3.4 K/mm3 (4.5-10.0)
[2022-11-17 13:07] LABS: Add Urine Microscopic? NO
[2022-11-17 13:22] LABS: Alanine Aminotransferase 19 U/L (6-35); Albumin Level 4.4 g/dL (3.5-5.1); Alkaline Phosphatase 42 U/L (38-126); Anion Gap 4 mmol/L (8-16); Aspartate Amino Transferase 28 U/L (14-36); Bilirubin,Total 0.5 mg/dL (0.2-1.3); Blood Urea Nitrogen 12 mg/dL (7-17); Carbon Dioxide 29 mmol/L (22-30); Chloride 104 mmol/L (98-107); Estimated Glomerular Filt Rate > 60; Glucose 77 mg/dL (65-110); Potassium 4.2 mmol/L (3.4-5.0); Sodium 137 mmol/L (137-145)
== END 2022-11-17 10:43 | disposition home or self-care (01) ==
LOC: ANHGOSHLAB 10:44
PROVIDERS: PCP Family Medicine; Visit Provider Nurse Practitioner Family
DX: Z01.818 Encounter for other preprocedural examination (principal); M54.16 Radiculopathy, lumbar region
CPT/HCPCS: 36415; 80053; 81003; 85025

== ENCOUNTER → 2022-12-09 14:14 | Outpatient (CLI) | payer OTHER, SELFPAY ==
--- NOTE | ~2022-12-09 | US_ITS ---
EXAMINATION: US venous doppler [facility] DATE: 12/09/2022 15:17 INDICATION: DVT . TECHNIQUE: Grayscale images without and with compression and Doppler images of the bilateral lower ex tremity veins were obtained. COMPARISON: None FINDINGS: The right common femoral vein, profunda (deep) femoral vein, femoral vein, popliteal vein, peroneal v ein, posterior tibial veins, gastrocnemius vein, and greater saphenous vein are patent. The left common femoral vein, profunda (deep) femoral vein, femoral vein, popliteal vein, peroneal v ein, posterior tibial veins, gastrocnemius vein, and greater saphenous vein are patent. IMPRESSION: Patent bilateral lower extremity veins. No evidence of deep venous thrombosis. Reviewed, dictated and finalized at location K.
== END ==
DX: M79.89 Other specified soft tissue disorders (principal)
CPT/HCPCS: 93970

== ENCOUNTER 2023-04-09 16:24 | Emergency (ER) | payer OTHER, SELFPAY ==
--- NOTE | ~2023-04-09 | XR_ITS ---
EXAMINATION: XR pelvis 1-2V DATE: 04/09/2023 16:54 INDICATION: Low back pain. Fall. TECHNIQUE: An anteroposterior view of the pelvis was obtained. COMPARISON: None. FINDINGS: There is lumbar levocurvature. No fracture. The hip joints are normal. IMPRESSION: 1. No fracture. Reviewed, dictated and finalized at location A. R SALES AMBASSADOR IMPRESSION: 1. No fracture.
--- NOTE | ~2023-04-09 | XR_ITS ---
EXAMINATION: XR lumbar spine min 4V DATE: 04/09/2023 16:54 INDICATION: Low back pain. TECHNIQUE: 5 views of lumbar spine were obtained. COMPARISON: Lumbar spine radiograph 12/08/2021, MRI 08/18/2022 FINDINGS: There is 6 degrees levocurvature of lumbar spine. Vertebral body heights are normal. There is mildly decreased disc height at L4-L5. There is multilevel mild facet joint osteoarthritis. IMPRESSION: 1. Mild lumbar spondylosis. Reviewed, dictated and finalized at location A. TER OPERATOR IMPRESSION: 1. Mild lumbar spondylosis.
--- NOTE | 2023-04-09 16:28 | ED.BACK ---
HPI - Back Pain/Injury General Chief Complaint: Back Pain/Injury Stated Complaint: fall Time Seen by Provider: 04/09/23 16:35 Source: patient, RN notes reviewed and old records reviewed Mode of arrival: ambulatory Limitations: no limitations History of Present Illness HPI Narrative: 37-year-old female presents to the [facility] complaints of lower back pain, buttock pain post slip and fall. Patient states that she was getting out of the shower this morning when she slipped, fell onto her buttock. Patient states that she bumped her head on the dresser. Patient reports that she has had no loss of consciousness. No blurry vision or change in vision. No neck or upper back pain. Reports that she did take Tylenol and ibuprofen with headache improvement. No neuro deficits noted Walking with a normal gait. 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 Was told to get x-rays and evaluation Onset (ago): hour(s) Context: fall (slip and fall) Treatments prior to arrival: acetaminophen Work related injury: No Related Data Home Medications Medication Instructions Recorded Confirmed brexpiprazole 4 mg tablet (Rexulti) 4 mg PO DAILY 08/18/22 04/09/23 bupropion HCl 150 mg 24 hr tablet, 300 mg PO DAILY 08/18/22 04/09/23 extended release ondansetron 4 mg disintegrating 4 mg PO PRN 08/18/22 04/09/23 tablet topiramate 50 mg tablet 50 mg PO HS 08/18/22 04/09/23 venlafaxine 75 mg capsule,extended 75 mg PO HS 08/18/22 04/09/23 release 24 hr gabapentin 600 mg tablet 600 mg PO TID 11/17/22 04/09/23 trazodone 150 mg tablet 75 mg PO QHS 11/17/22 04/09/23 cyclobenzaprine 10 mg tablet mg 04/09/23 Allergies Allergy/AdvReac Type Severity Reaction Status Date / Time nitrofurantoin AdvReac n/v/d Verified 04/09/23 16:32 [From Macrobid] Sulfa (Sulfonamide AdvReac Photosensit Verified 04/09/23 16:32 Antibiotics) ivity Review of Systems Review of Systems: All systems reviewed & are unremarkable except as noted in HPI and below Constitutional: Constitutional: Reports headache(s) Eyes: Eyes: Reports no additional eye complaints ENT: Reports system reviewed and no additional complaints, except as documented Cardiovascular: Cardiovascular: Reports no additional cardiovascular complaints, Denies chest pain and Denies dyspnea Respiratory: Respiratory: Reports no additional respiratory complaints, Denies chest congestion, Denies cough and Denies dyspnea Gastrointestinal: Gastrointestinal: Reports no additional gastrointestinal complaints, Denies abdominal pain, Denies nausea and Denies vomiting Musculoskeletal: Musculoskeletal: Reports as per HPI, Reports back pain (lower back) and Denies neck pain Integumentary/Breasts: Skin/Breast: Reports system reviewed and no additional complaints, except as docu Neurologic: Reports system reviewed and no additional complaints, except as documented Psychiatric: Psychiatric: Reports no additional psychiatric complaints Allergic/Immunologic: Allergic/Immunologic: Reports no additional allergic/immunologic complaints PMFSH Past Medical History Medical History Anorexia Anxiety Behcets syndrome Celiac disease delivery delivered Chronic diarrhea Degenerative disc disease Depressed Depression with anxiety Former smoker Herniated disc Insomnia Lumbar degenerative disc disease Lumbar spine strain 11/2022 PTSD (post-traumatic stress disorder) Right lower quadrant pain Urge incontinence Urinary incontinence Vapes nicotine containing substance Surgical History Surgical History H/O gastric sleeve H/O gastric sleeve (~2014) H/O hysterectomy for benign disease (~2011) no cervix, both ovaries remain History of History of hysterectomy Hx of arthroscopic knee surgery Hx of section 2008, 2010 S/P correction of deviated nasal septum Family History Family History (Re
[2023-04-09 16:32] VITALS: BP 119/66; PULSE 90; RESP 18; TEMP 36.4; O2SAT 100
[2023-04-09 16:33] VITALS: BP 119/66; PULSE 90; RESP 18; TEMP 36.4; O2SAT 100
== END 2023-04-09 17:24 | disposition home or self-care (01) ==
PROVIDERS: Emergency Provider Nurse Practitioner; PCP Nurse Practitioner Family
DX: S39.012A Strain of muscle, fascia and tendon of lower back, initial encounter (principal); W01.0XXA Fall on same level from slipping, tripping and stumbling without subsequent striking against object, initial encounter; F17.290 Nicotine dependence, other tobacco product, uncomplicated; K90.0 Celiac disease; M51.36 Other intervertebral disc degeneration, lumbar region; F41.8 Other specified anxiety disorders
CPT/HCPCS: 72110; 72170; 99214; G0463

== ENCOUNTER 2023-05-07 15:25 | Emergency (ER) | payer OTHER, SELFPAY ==
[2023-05-07 16:19] VITALS: BP 111/68; PULSE 92; RESP 16; TEMP 36.4; O2SAT 100
--- NOTE | 2023-05-07 17:30 | ED.GENADULT ---
HPI - General Adult General Chief complaint: Back Pain/Injury Stated complaint: back pain Time Seen by Provider: 05/07/23 17:04 Source: patient Mode of arrival: ambulatory Limitations: no limitations History of Present Illness HPI narrative: This is a 37-year-old female who presents to the ED with chief complaint of chronic back pain. Reports flare up of left SI joint pain. She reports she has left SI joint that needs to be surgically fused. She is to be scheduled for this surgery and the next couple of weeks. States she has been doing multiple months of physical therapy and has tried [id number] pain medications, lidocaine patches, ice and heat therapy as well as massages. She is unable to take NSAIDs due to past surgical history of gastric sleeve. Pain is limited to the left SI joint area. Denies fevers, chills, flank pain, urinary symptoms, abdominal pain, nausea, vomiting, bowel or bladder dysfunction, numbness or weakness. Patient reports she is here for pain control while she waits for her primary care appointment on Wednesday. Related Data Home Medications Medication Instructions Recorded Confirmed brexpiprazole 4 mg tablet (Rexulti) 4 mg PO DAILY 08/18/22 04/09/23 bupropion HCl 150 mg 24 hr tablet, 300 mg PO DAILY 08/18/22 04/09/23 extended release ondansetron 4 mg disintegrating 4 mg PO PRN 08/18/22 04/09/23 tablet topiramate 50 mg tablet 50 mg PO HS 08/18/22 04/09/23 venlafaxine 75 mg capsule,extended 75 mg PO HS 08/18/22 04/09/23 release 24 hr gabapentin 600 mg tablet 600 mg PO TID 11/17/22 04/09/23 trazodone 150 mg tablet 75 mg PO QHS 11/17/22 04/09/23 cyclobenzaprine 10 mg tablet mg 04/09/23 Allergies Allergy/AdvReac Type Severity Reaction Status Date / Time nitrofurantoin AdvReac n/v/d Verified 05/07/23 16:53 [From Macrobid] Sulfa (Sulfonamide AdvReac Photosensit Verified 05/07/23 16:53 Antibiotics) ivity Review of Systems Review of Systems: All systems as dictated in HPI [facility] Past Medical History Medical History Anorexia Anxiety Behcets syndrome Celiac disease delivery delivered Chronic diarrhea Degenerative disc disease Depressed Depression with anxiety Former smoker Herniated disc Insomnia Lumbar degenerative disc disease Lumbar spine strain 11/2022 PTSD (post-traumatic stress disorder) Right lower quadrant pain Urge incontinence Urinary incontinence Vapes nicotine containing substance Surgical History Surgical History H/O gastric sleeve H/O gastric sleeve (~2014) H/O hysterectomy for benign disease (~2011) no cervix, both ovaries remain History of History of hysterectomy Hx of arthroscopic knee surgery Hx of section 2008, 2010 S/P correction of deviated nasal septum Family History Family History Father Cerebrovascular accident Heart disease Mother Alcohol abuse Father Heart disease Cerebrovascular accident Alcohol abuse Grandparent Cervical cancer Lung cancer Social History Social History Social History: Lives at home with her . Independent with her daily activities. PCP: Dayami Jackson NP. Full code. Smoking packs per day: 1 Smoking cigarettes per day: 20.0 Years smoked: 15 Smoking pack-years: 15.00 Smoking status: Current every day smoker Tobacco type: cigarettes and e-cigarettes/vaping Additional smoking assessment comments: Quit cigarettes 1 year ago, vapes daily Alcohol intake: current Alcohol use details: Once monthly alcohol use Substance use: current Substance use type: marijuana Last use: Daily use Lack of Transportation: No Lack of Food: Never True Current Housing: I Have Housing Concerned About Future Housing: No Difficulty Paying Gas/Electric Bills: No Difficulty Paying fo
== END 2023-05-07 17:55 | disposition home or self-care (01) ==
LOC: ANHED 17:45
PROVIDERS: Emergency Provider Physician Assistant; PCP Nurse Practitioner Family
DX: M53.3 Sacrococcygeal disorders, not elsewhere classified (principal); G89.29 Other chronic pain; F17.210 Nicotine dependence, cigarettes, uncomplicated
CPT/HCPCS: 99283

== ENCOUNTER 2023-05-10 14:04 | Outpatient (CLI) | payer OTHER, SELFPAY ==
[2023-05-10 19:26] LABS: Hematocrit 39.9 % (37.0-47.0); Hemoglobin 13.2 g/dL (12.0-15.0); Mean Corpuscular HGB Conc 33.1 g/dl (32-36); Mean Corpuscular Hemoglobin 32.5 pg (26-34); Mean Corpuscular Volume 98.3 fl (80-100); Mean Platelet Volume 10.4 fl (7.4-10.4); Platelet Count Result 313 k/mm3 (150-375); Red Blood Count 4.06 M/mm3 (4.2-5.4); Red Cell Distribution Width 12.4 % (11.5-14.5); White Blood Count 4.1 K/mm3 (4.5-10.0)
[2023-05-10 19:36] LABS: Appearance Urine Turbid (Clear); Bacteria Urine None Seen /hpf; Bilirubin Urine Negative (Negative); Blood Urine Negative (Negative); Color Urine Yellow (Yellow); Glucose Urine UA Negative (Negative); Ketones Urine Negative (Negative); Leukocyte Esterase Ur Negative LEU/UL (NEGATIVE); Nitrate Urine Negative (Negative); Non Pathogenic Casts 0-2; Protein Urine Negative (Negative); RBC Urine 0-2 /hpf (0-2); Specific Grav Ur 1.013 (1.001-1.035); Squamous Epithelial Cell Urine None seen /hpf (Few); WBC Urine 0-5 /hpf (0-3)
[2023-05-10 19:43] LABS: Add Urine Microscopic? YES
[2023-05-10 20:45] LABS: Alanine Aminotransferase 16 U/L (6-35); Albumin Level 4.3 g/dL (3.5-5.1); Alkaline Phosphatase 42 U/L (38-126); Anion Gap 7 mmol/L (8-16); Aspartate Amino Transferase 27 U/L (14-36); Bilirubin,Total 0.7 mg/dL (0.2-1.3); Blood Urea Nitrogen 11 mg/dL (7-17); Calcium 9.4 mg/dL (8.4-10.2); Carbon Dioxide 27 mmol/L (22-30); Chloride 105 mmol/L (98-107); Estimated Glomerular Filt Rate > 60; Glucose 82 mg/dL (65-110); Potassium 3.6 mmol/L (3.4-5.0); Sodium 139 mmol/L (137-145)
== END 2023-05-10 14:05 | disposition home or self-care (01) ==
LOC: ANHGOSHLAB 14:05
PROVIDERS: PCP Nurse Practitioner Family; Visit Provider Nurse Practitioner Family
DX: R20.0 Anesthesia of skin (principal); R20.2 Paresthesia of skin; Z01.818 Encounter for other preprocedural examination; Z98.84 Bariatric surgery status; M48.9 Spondylopathy, unspecified
CPT/HCPCS: 36415; 80053; 81001; 85027

== ENCOUNTER 2023-06-04 05:49 | Emergency (ER) | payer OTHER, SELFPAY ==
--- NOTE | ~2023-06-04 | CT_ITS ---
EXAMINATION: CT lumbar spine wo con DATE: 06/04/2023 07:18 INDICATION: Low volar and buttock numbness two days status post SI fusion. TECHNIQUE: Computed tomography (CT) of the lumbar spine was performed without intravenous contrast. T he dose-length product (DLP) was 572.53 mGy-cm. Iterative reconstruction was used. COMPARISON: 08/17/2022 FINDINGS: Bone alignment is normal. There is no fracture. There is mild loss of intervertebral disc s pace height at L4-5 and L5-S1. The vertebral body heights are maintained. There is mild facet joint o steoarthritis of the lower lumbar spine. Changes of left sacroiliac fusion are noted. IMPRESSION: 1. Changes of left sacroiliac fusion and mild lumbar spondylosis without acute findings. Reviewed, dictated and finalized at location A.
[2023-06-04 05:52] VITALS: BP 132/68; PULSE 104; RESP 19; TEMP 37; O2SAT 100
--- NOTE | 2023-06-04 06:05 | ED.GENADULT ---
HPI - General Adult General Chief complaint: Unspecified <Kyle Bloom MD - Last Filed: 06/07/23 23:32> Stated complaint: numbness to leg <Kyle Bloom MD - Last Filed: 06/07/23 23:32> Time Seen by Provider: 06/04/23 06:51 <Kyle Bloom MD - Last Filed: 06/07/23 23:32> History of Present Illness HPI narrative: Patient is a 37-year-old female who presents to the emergency department this morning complaining of left buttocks numbness and numbness to her vaginal area. Patient also reports weakness to her left leg. Patient had an SI joint fusion 2 days ago at an outside facility and patient states that she has some residual nerve damage from a previous back surgery many years ago stating that she can not feel her right 3rd through 5th toes and is very concerned that this surgery is going to cause some chronic nerve damage. Patient states that she feels as though her urine is dripping and she has no control her bladder. She is currently denying any additional symptoms including fevers or chills, nausea, vomiting, abdominal pain, dysuria or hematuria. She denies any bowel incontinence. There are no other modifying, alleviating, or precipitating factors at this time. <Kyle Bloom MD - Last Filed: 06/07/23 23:32> Related Data Home medications: Home Medications Medication Instructions Recorded Confirmed brexpiprazole 4 mg tablet (Rexulti) 4 mg PO DAILY 08/18/22 05/10/23 bupropion HCl 150 mg 24 hr tablet, 300 mg PO DAILY 08/18/22 05/10/23 extended release ondansetron 4 mg disintegrating 4 mg PO PRN 08/18/22 05/10/23 tablet topiramate 50 mg tablet 50 mg PO HS 08/18/22 05/10/23 venlafaxine 75 mg capsule,extended 75 mg PO HS 08/18/22 05/10/23 release 24 hr gabapentin 600 mg tablet 600 mg PO TID 11/17/22 05/10/23 trazodone 150 mg tablet 75 mg PO QHS 11/17/22 05/10/23 cyclobenzaprine 10 mg tablet mg 04/09/23 05/10/23 <Kyle Bloom MD - Last Filed: 06/07/23 23:32> Allergies/adverse reactions: Allergies Allergy/AdvReac Type Severity Reaction Status Date / Time nitrofurantoin AdvReac n/v/d Verified 05/10/23 13:26 [From Macrobid] Sulfa (Sulfonamide AdvReac Photosensit Verified 05/10/23 13:26 Antibiotics) ivity <Kyle Bloom MD - Last Filed: 06/07/23 23:32> Review of Systems Review of Systems: All systems are reviewed and are negative unless stated otherwise in the HPI. <Kyle Bloom MD - Last Filed: 06/07/23 23:32> PMFSH Past Medical History Medical History: Medical History Anorexia Anxiety Behcets syndrome Celiac disease delivery delivered Chronic diarrhea Degenerative disc disease Depressed Depression with anxiety Encounter for preoperative examination for general surgical procedure Former smoker Herniated disc Insomnia Lumbar degenerative disc disease Lumbar spine strain 11/2022 PTSD (post-traumatic stress disorder) Right lower quadrant pain Urge incontinence Urinary incontinence Vapes nicotine containing substance <Kyle Bloom MD - Last Filed: 06/07/23 23:32> Surgical History Surgical History: Surgical History H/O gastric sleeve H/O gastric sleeve (~2014) H/O hysterectomy for benign disease (~2011) no cervix, both ovaries remain History of History of hysterectomy Hx of arthroscopic knee surgery Hx of section 2008, 2010 S/P correction of deviated nasal septum <Kyle Bloom MD - Last Filed: 06/07/23 23:32> Family History Family History: Family History Father Cerebrovascular accident Heart disease Mother Alcohol abuse Father Heart disease Cerebrovascular accident Alcohol abuse Grandparent Cervical cancer Lung cancer <Kyle Bloom MD - Last Filed: 06/07/23 23:32> Social History Social History: Social History
[2023-06-04 07:02] VITALS: BP 104/76; PULSE 74; RESP 15; O2SAT 100
[2023-06-04 07:09] LABS: Basophils Percent Auto 0.7 % (0.2-1.2); Eosinophils Absolute Auto 0.1 K/mm3 (0-0.3); Eosinophils Percent Auto 2.1 % (0-4.4); Hematocrit 39.3 % (37.0-47.0); Hemoglobin 12.8 g/dL (12.0-15.0); Immature Granulocyte Absolute 0.02 K/mm3 (0.00-0.031); Immature Granulocyte Percent A 0.3 % (0-0.5); Lymphocytes Absolute Auto 1.63 K/mm3 (0.9-3.2); Lymphocytes Percent Auto 28.3 % (18.3-44.2); Mean Corpuscular HGB Conc 32.6 g/dl (32-36); Mean Corpuscular Hemoglobin 32.5 pg (26-34); Mean Corpuscular Volume 99.7 fl (80-100); Monocytes Absolute Auto 0.6 K/mm3 (0.1-0.6); Monocytes Percent Auto 10.9 % (2.6-8.5); Neutrophils Absolute Auto 3.3 K/mm3 (1.3-6.7); Neutrophils Percent Auto 57.7 % (45.5-73.1); Platelet Count Result 258 k/mm3 (150-375); Red Blood Count 3.94 M/mm3 (4.2-5.4); Red Cell Distribution Width 12.3 % (11.5-14.5); White Blood Count 5.8 K/mm3 (4.5-10.0)
[2023-06-04 07:10] LABS: Appearance Urine Clear (Clear); Bilirubin Urine Negative (Negative); Blood Urine Negative (Negative); Color Urine Yellow (Yellow); Glucose Urine UA Negative (Negative); Ketones Urine Negative (Negative); Leukocyte Esterase Ur Negative LEU/UL (Negative); Nitrate Urine Negative (Negative); Protein Urine Negative (Negative); pH Urine 7.5 (5.0-9.0)
[2023-06-04 07:12] LABS: Specific Grav Ur 1.004 (1.001-1.035)
[2023-06-04 07:13] LABS: Add Urine Microscopic? NO
[2023-06-04 07:31] LABS: Alanine Aminotransferase 16 U/L (6-35); Albumin Level 3.9 g/dL (3.5-5.1); Alkaline Phosphatase 47 U/L (38-126); Anion Gap 2 mmol/L (4-12); Aspartate Amino Transferase 24 U/L (14-36); Bilirubin,Total 0.6 mg/dL (0.2-1.3); Blood Urea Nitrogen 8 mg/dL (7-17); Calcium 8.9 mg/dL (8.4-10.2); Carbon Dioxide 31 mmol/L (22-30); Chloride 105 mmol/L (98-107); Estimated CRCL calculation 86 ml/min; Estimated Glomerular Filt Rate > 60; Glucose 79 mg/dL (65-110); Potassium 3.9 mmol/L (3.4-5.0); Sodium 138 mmol/L (137-145)
[2023-06-04 07:38] LABS: SPREG INTERNAL CONTROL Positive; Serum Qual hCG Negative
[2023-06-04] MEDS: dexAMETHasone SOD PHOS INJ 10 MG/ML 1 ML VIAL IV PUSH (08:47)
[2023-06-04 08:50] VITALS: BP 108/60; PULSE 87; RESP 18; TEMP 36.2; O2SAT 98
== END 2023-06-04 08:52 | disposition home or self-care (01) ==
PROVIDERS: Emergency Medicine; Emergency Provider Emergency Medicine; PCP Nurse Practitioner Family
DX: T84.89XA Other specified complication of internal orthopedic prosthetic devices, implants and grafts, initial encounter (principal); R20.0 Anesthesia of skin; Z98.1 Arthrodesis status; K90.0 Celiac disease; F41.8 Other specified anxiety disorders; N39.41 Urge incontinence; M51.36 Other intervertebral disc degeneration, lumbar region; M35.2 Behcet's disease; F17.290 Nicotine dependence, other tobacco product, uncomplicated; F41.9 Anxiety disorder, unspecified; F43.10 Post-traumatic stress disorder, unspecified; Z98.84 Bariatric surgery status; Z90.710 Acquired absence of both cervix and uterus; M47.816 Spondylosis without myelopathy or radiculopathy, lumbar region; Y83.1 Surgical operation with implant of artificial internal device as the cause of abnormal reaction of the patient, or of later complication, without mention of misadventure at the time of the procedure
CPT/HCPCS: 36415; 72131; 80053; 81003; 84703; 85025; 96374; 99284; J1100

== ENCOUNTER 2023-07-07 04:16 | Emergency (ER) | payer OTHER, SELFPAY ==
--- NOTE | ~2023-07-07 | XR_ITS ---
Portable chest x-ray Comparison: 10/06/2022 Clinical History: Chest pain Findings: Lungs are clear, without focal consolidation or pleural effusion. Cardiomediastinal silho uette is stable. Bones and soft tissues are unremarkable. Impression: Normal chest. Reviewed, dictated and finalized at [facility]. Impression: Normal chest.
--- NOTE | ~2023-07-07 | CT_ITS ---
Clinical Indication: Chest pain CT Scan of the Chest with Contrast: Technique: Contiguous sections were acquired throughout the chest after intravenous administration of 100 cc of Omnipaque 350. Dose reduction technique was used on this scan by utilizing automated expos ure control and iterative reconstruction technique. The dose-length product (DLP) was 240.38 mGy-cm. Findings: There is no evidence of any significant mediastinal, hilar or axillary lymphadenopathy. There is a encarnacion spected single small pulmonary embolus in a segmental branch in the right lower lobe. There is no obdulio dence of aortic dissection or aneurysm. There is no evidence of pleural or pericardial effusion. The lungs are clear. No pulmonary nodules or infiltrates are noted. Images through the upper abdomen reveal no abnormalities. Impression: Suspected single small pulmonary embolus in segmental branches in the right lower lobe. Clear lungs. Reviewed, dictated and finalized at [facility]. Impression: Suspected single small pulmonary embolus in segmental branches in the right low er lobe. Clear lungs.
[2023-07-07 04:21] VITALS: BP 125/81; PULSE 84; RESP 15; TEMP 36.4; O2SAT 100
--- NOTE | 2023-07-07 04:25 | ECG_ITS ---
SEE SCANNED COPY FOR CONFIRMED REPORT MTDD
[2023-07-07 04:29] VITALS: PULSE 83
[2023-07-07 04:31] VITALS: BP 125/81; PULSE 82; RESP 15; TEMP 36.4; O2SAT 100
[2023-07-07 04:32] LABS: Basophils Percent Auto 0.6 % (0.2-1.2); Eosinophils Absolute Auto 0.1 K/mm3 (0-0.3); Eosinophils Percent Auto 2.2 % (0-4.4); Hematocrit 37.2 % (37.0-47.0); Hemoglobin 12.7 g/dL (12.0-15.0); Immature Granulocyte Absolute 0.01 K/mm3 (0.00-0.031); Immature Granulocyte Percent A 0.2 % (0-0.5); Lymphocytes Absolute Auto 2.35 K/mm3 (0.9-3.2); Lymphocytes Percent Auto 46.4 % (18.3-44.2); Mean Corpuscular HGB Conc 34.1 g/dl (32-36); Mean Corpuscular Hemoglobin 33.1 pg (26-34); Mean Corpuscular Volume 96.9 fl (80-100); Mean Platelet Volume 9.1 fl (7.4-10.4); Monocytes Absolute Auto 0.6 K/mm3 (0.1-0.6); Monocytes Percent Auto 11.3 % (2.6-8.5); Neutrophils Percent Auto 39.3 % (45.5-73.1); Platelet Count Result 319 k/mm3 (150-375); Red Blood Count 3.84 M/mm3 (4.2-5.4); White Blood Count 5.1 K/mm3 (4.5-10.0)
[2023-07-07 04:42] LABS: Alanine Aminotransferase 19 U/L (6-35); Albumin Level 4.3 g/dL (3.5-5.1); Alkaline Phosphatase 56 U/L (38-126); Anion Gap 6 mmol/L (4-12); Aspartate Amino Transferase 27 U/L (14-36); Bilirubin,Total 0.7 mg/dL (0.2-1.3); Blood Urea Nitrogen 10 mg/dL (7-17); Calcium 9.2 mg/dL (8.4-10.2); Carbon Dioxide 28 mmol/L (22-30); Chloride 105 mmol/L (98-107); Estimated CRCL calculation 87 ml/min; Estimated Glomerular Filt Rate > 60; Glucose 100 mg/dL (65-110); Lipase 164 U/L (23-300); Potassium 3.4 mmol/L (3.4-5.0); Sodium 139 mmol/L (137-145)
[2023-07-07 04:44] LABS: INR 0.9; Prothrombin Time 12.5 Seconds (11.1-14.7)
[2023-07-07 04:45] LABS: Partial Thromboplastin Time 27.3 Seconds (22.3-36.8)
[2023-07-07] MEDS: ASPIRIN 81 MG CHEWABLE TABLET 324 MG PO (04:45)
--- NOTE | 2023-07-07 04:49 | ED.GENADULT ---
HPI - General Adult General Chief complaint: Chest Pain Stated complaint: chest pain, sob Time Seen by Provider: 07/07/23 04:27 History of Present Illness HPI narrative: this is a 37-year-old female presenting to the ED chief of chest pain. Starting at 2:30 a.m. in the morning while she was bending over to pet her small dog she developed a squeezing pain in the center of her chest. It then started to radiate to her neck and her right arm and then to the left side of her chest. Is getting worse. She has never had pain like this before. He said it is worse with deep breaths and exertion. It is associated with shortness of breath and 1 episode of nausea and vomiting. She denies fevers chills abdominal pain lower extremity edema or history of DVT PEs. She is 5 weeks out from SI joint fusion. She just got back from [place] and had a 3 hour flight earlier today. She also has multiple issues with chronic pain has multiple spinal surgeries including cervical procedures. Patient has anxiety/depression. Related Data Home Medications Medication Instructions Recorded Confirmed brexpiprazole 4 mg tablet (Rexulti) 4 mg PO DAILY 08/18/22 06/14/23 bupropion HCl 150 mg 24 hr tablet, 300 mg PO DAILY 08/18/22 06/14/23 extended release ondansetron 4 mg disintegrating 4 mg PO PRN 08/18/22 06/14/23 tablet topiramate 50 mg tablet 50 mg PO HS 08/18/22 06/14/23 venlafaxine 75 mg capsule,extended 75 mg PO HS 08/18/22 06/14/23 release 24 hr gabapentin 600 mg tablet 600 mg PO TID 11/17/22 06/14/23 trazodone 150 mg tablet 75 mg PO QHS 11/17/22 06/14/23 cyclobenzaprine 10 mg tablet mg 04/09/23 06/14/23 Allergies Allergy/AdvReac Type Severity Reaction Status Date / Time oxycodone Allergy Mild Rash Verified 07/07/23 04:32 nitrofurantoin AdvReac n/v/d Verified 07/07/23 04:32 [From Macrobid] Sulfa (Sulfonamide AdvReac Photosensit Verified 07/07/23 04:32 Antibiotics) [facility] Past Medical History Medical History Anorexia Anxiety Behcets syndrome Celiac disease delivery delivered Chronic diarrhea Degenerative disc disease Depressed Depression with anxiety Encounter for preoperative examination for general surgical procedure Former smoker Fusion congenital, sacroiliac joint Herniated disc Insomnia Lumbar degenerative disc disease Lumbar spine strain 11/2022 Pre-op exam PTSD (post-traumatic stress disorder) Right lower quadrant pain Thigh numbness Urge incontinence Urinary incontinence Vapes nicotine containing substance Surgical History Surgical History H/O gastric sleeve H/O gastric sleeve (~2014) H/O hysterectomy for benign disease (~2011) no cervix, both ovaries remain History of History of hysterectomy Hx of arthroscopic knee surgery Hx of section 2008, 2010 S/P correction of deviated nasal septum Family History Family History Father Cerebrovascular accident Heart disease Mother Alcohol abuse Father Heart disease Cerebrovascular accident Alcohol abuse Grandparent Cervical cancer Lung cancer Social History Social History Social History: Lives at home with her . Independent with her daily activities. PCP: Dayami Jackson NP. Full code. Smoking packs per day: 1 Smoking cigarettes per day: 20.0 Years smoked: 15 Smoking pack-years: 15.00 Smoking status: Current every day smoker Tobacco type: cigarettes and e-cigarettes/vaping Additional smoking assessment comments: Quit cigarettes 1 year ago, vapes daily Alcohol intake: current Alcohol use details: Once monthly alcohol use Substance use: current Substance use type: marijuana Last use: Daily use Lack of Transportation: No Lack of Food: Never True Current Housing: I Have Housing Concerned About Future Housing:
[2023-07-07 04:53] LABS: Troponin I < 0.012 ng/mL (0.000-0.034)
[2023-07-07 04:59] VITALS: BP 96/53; PULSE 82; RESP 15; O2SAT 97
[2023-07-07 05:05] LABS: NT Pro B Type Natriuretic Pept 66 pg/mL (19.9-100)
[2023-07-07] MEDS: traMADol HCL (*CRX) 50 MG TABLET PO (05:10)
[2023-07-07] MEDS: APIXABAN 5 MG TABLET 10 MG PO (07:12)
[2023-07-07 07:15] VITALS: PULSE 88; RESP 17; O2SAT 100
== END 2023-07-07 07:15 | disposition home or self-care (01) ==
PROVIDERS: Emergency Provider Emergency Medicine; PCP Nurse Practitioner Family
DX: R07.9 Chest pain, unspecified (principal); I26.99 Other pulmonary embolism without acute cor pulmonale; F41.8 Other specified anxiety disorders; K90.0 Celiac disease; F17.290 Nicotine dependence, other tobacco product, uncomplicated
CPT/HCPCS: 36415; 71045; 71275; 80053; 83690; 83880; 84484; 85025; 85610; 85730; 93005; 99284; A9270; Q9967

== ENCOUNTER 2023-07-28 08:10 | Outpatient (CLI) | payer OTHER, SELFPAY ==
--- NOTE | ~2023-07-28 | MR_ITS ---
MRI of the lumbar spine Clinical History: Back pain Technique: Axial T2-weighted images, and sagittal T1-weighted, T2-weighted, and and T2 fat-sat images were acquired. COMPARISON: 08/18/2022 Findings: There is no fracture or subluxation of the lumbar spine. Vertebral bodies maintain normal h eight and alignment. No bone marrow signal abnormality seen. At L1-L2, L2-L3, L3-L4, intervertebral discs maintain normal signal and position. Moderate to advance d facet joint degenerative changes are present is levels. No spinal canal stenosis or neural foramina l narrowing at these levels. At L4-L5, there is mild disc desiccation. No significant bulge or herniation evident. There is mild t o moderate facet arthropathy. No central canal stenosis or neural foraminal narrowing. L5-S1, there is moderate to advanced degenerative disc narrowing, mild disc bulge and moderate facet arthropathy. No central canal stenosis. There is moderate right neural foraminal narrowing, and minim al left neural foraminal narrowing. Paravertebral soft tissues are unremarkable. Impression: Jmyo-[id number] degenerative change at the L5-S1 level, as above. Minimal degenerative changes otherwise, as above. Reviewed, dictated and finalized at location . Impression: Atzy-iy-xfpwhtcn degenerative change at the L5-S1 level, as above. Minimal degenerative changes otherwise, as above.
== END 2023-07-28 08:11 ==
PROVIDERS: PCP Nurse Practitioner Family; Visit Provider Neurological Surgery
DX: M51.37 Other intervertebral disc degeneration, lumbosacral region (principal)
CPT/HCPCS: 72148

== ENCOUNTER 2023-08-12 10:34 | Outpatient (CLI) | payer OTHER, SELFPAY ==
--- NOTE | 2023-08-12 10:52 | ECHO_ITS ---
Patient Info Name: Della Sylvester Age: 37 years : 1985 Gender: Female Ht: 60 in Wt: 161 lbs BSA: 1.79 m2 HR: 87 bpm BP: 113 / 79 mmHg Technical Quality: Fair Exam Date: 08/12/2023 10:57 AM Exam Location: Echo Lab Patient Status: Outpatient Admit Date: 08/12/2023 Staff Ordering Physician: Dwayne Arroyo DO Environmental Engineering Technician: Ceci Car RDCS Attending Provider: Dwayne Arroyo DO Referring Physician: Cruz LINDQUIST; Exam Type: CA echo dop color flow w con Study Info Indications I34.1 - Nonrheumatic mitral (valve) prolapse Complete two-dimensional, color flow and Doppler transthoracic echocardiogram is performed. Summary 1. Complete two-dimensional, color flow and Doppler transthoracic echocardiogram is performed. 2. Left ventricular chamber dimension is normal. 3. Left ventricular systolic function is normal, estimated at 60-65%. 4. The left ventricular diastolic function is normal. 5. E/e' 6 is not elevated. 6. There is mild mitral valve regurgitation. 7. There is mild tricuspid valve regurgitation. 8. No pulmonary hypertension, estimated pulmonary arterial systolic pressure is 24 mmHg. 9. There is trace pulmonic regurgitation. Left Ventricle E/e' 6 is not elevated. Left ventricular chamber dimension is normal. Left ventricular systolic function is normal, estimated at 60-65%. The left ventricular diastolic function is normal. Right Ventricle Right ventricular chamber dimension is normal. Right ventricular systolic function is normal. Left Atria Left atrial chamber dimension is normal. Right Atria Right atrial chamber dimension is normal. Aortic Valve The aortic valve is trileaflet. There is no aortic valve stenosis. There is no aortic valve regurgitation. Pulmonic Valve There is trace pulmonic regurgitation. Mitral Valve No mitral valve prolapse. There is no mitral valve stenosis. There is mild mitral valve regurgitation. Tricuspid Valve There is mild tricuspid valve regurgitation. No pulmonary hypertension, estimated pulmonary arterial systolic pressure is 24 mmHg. Pericardium/Pleural There is no pericardial effusion. Inferior Vena Cava Normal inferior vena cava with >50% collapse upon inspiration consistent with normal right atrial pressure, 5 mmHg. Aorta The aortic root size at the sinus of Valsalva is normal. Left Ventricular Outflow Tract Name Value Normal LVOT 2D LVOT Diameter 1.90 cm LVOT Doppler LVOT Peak Gradient 3 mmHg LVOT Mean Gradient 1 mmHg LVOT VTI 16.15 cm LVOT VTI/AV VTI Ratio 0.77 LVOT Stroke Volume 45.96 ml LVOT CO 2.65 l/min LVOT CI 1.48 L/min/m2 Pulmonic Valve Name Value Normal RVOT Doppler RVOT Peak Gradient 2 mmHg PV Doppler
== END 2023-08-12 10:35 | disposition home or self-care (01) ==
LOC: ANHCARD 10:35
PROVIDERS: PCP Nurse Practitioner Family; Visit Provider Internal Medicine Cardiovascular Disease
DX: I08.1 Rheumatic disorders of both mitral and tricuspid valves (principal)
CPT/HCPCS: 93306; C8929

== ENCOUNTER 2023-09-15 19:48 | Emergency (ER) | payer OTHER, SELFPAY ==
--- NOTE | ~2023-09-15 | XR_ITS ---
EXAMINATION: XR chest 2V DATE: 09/15/2023 20:40 INDICATION: Syncope. TECHNIQUE: Frontal and lateral views of the chest were obtained. COMPARISON: Chest single view 07/07/2023, chest CT 07/07/2023 FINDINGS: There is no pneumonia, pleural effusion, or pneumothorax. The heart size is normal. There a re disc replacements in cervical spine. IMPRESSION: 1. No acute cardiopulmonary disease. Reviewed, dictated and finalized at location E.
--- NOTE | ~2023-09-15 | CT_ITS ---
EXAMINATION: CT brain wo con DATE: 09/15/2023 20:34 INDICATION: Minor head injury. TECHNIQUE: Computed tomography (CT) of the head was performed without intravenous contrast. The mA wa s adjusted according to patient size. Iterative reconstruction technique was employed. The dose-lengt h product was 605.33 mGy-cm. COMPARISON: Head CT 10/24/2021 FINDINGS: There is no intracranial hemorrhage, acute infarction, or abnormal intracranial mass lesion . The ventricles are normal in size. The paranasal sinuses are clear. The orbits are normal. The mast oid air cells are normal. IMPRESSION: 1. Normal brain. Reviewed, dictated and finalized at location E. IMPRESSION: 1. Normal brain.
[2023-09-15 19:52] VITALS: BP 131/82; PULSE 106; RESP 16; TEMP 36.4; O2SAT 100
--- NOTE | 2023-09-15 20:07 | ECG_ITS ---
Test Date: 2023-09-15 20:22:11 Measurements Intervals [place] Rate: 118 P: 30 MO: 118 QRS: 56 QRSD: 90 T: 9 QT: 329 QTc: 462 Interpretive Statements SINUS TACHYCARDIA WITH SHORT MO INTERVAL ABNORMAL ECG No previous ECG available for comparison Electronically Signed On 09-15-2023 20:24:15 CDT by Dwayne Arroyo D.O.
[2023-09-15 20:11] VITALS: BP 126/87; PULSE 102
[2023-09-15 20:12] VITALS: BP 127/92; PULSE 102
[2023-09-15 20:28] LABS: Basophils Percent Auto 0.7 % (0.2-1.2); Eosinophils Percent Auto 0.5 % (0-4.4); Hematocrit 39.8 % (37.0-47.0); Hemoglobin 13.7 g/dL (12.0-15.0); Immature Granulocyte Absolute 0.01 K/mm3 (0.00-0.031); Immature Granulocyte Percent A 0.2 % (0-0.5); Lymphocytes Percent Auto 31.3 % (18.3-44.2); Mean Corpuscular HGB Conc 34.4 g/dl (32-36); Mean Corpuscular Hemoglobin 32.9 pg (26-34); Mean Corpuscular Volume 95.4 fl (80-100); Mean Platelet Volume 9.4 fl (7.4-10.4); Monocytes Absolute Auto 0.5 K/mm3 (0.1-0.6); Monocytes Percent Auto 8.2 % (2.6-8.5); Neutrophils Absolute Auto 3.4 K/mm3 (1.3-6.7); Neutrophils Percent Auto 59.1 % (45.5-73.1); Platelet Count Result 294 k/mm3 (150-375); Red Blood Count 4.17 M/mm3 (4.2-5.4); Red Cell Distribution Width 11.7 % (11.5-14.5); White Blood Count 5.8 K/mm3 (4.5-10.0)
[2023-09-15] MEDS: SODIUM CHLORIDE 0.9% IV 1,000 ML 999 ML IV CONT (20:28)
--- NOTE | 2023-09-15 20:31 | ED.SYNCOPE ---
HPI - Syncope General Chief Complaint: Syncope Stated Complaint: syncope, +LOC, on blood thinner Time Seen by Provider: 09/15/23 20:01 History of Present Illness HPI narrative: patient is a 38-year-old female who presents ER after having a syncopal episode at home. Reports she has been having recurrent syncope for months. She has been worked up by both her primary care doctor and her die sinker and has not found a cause. She does have significant anxiety. She reports she did not eat or drink today. She is currently on some include tied which is depressed her appetite. She reports she was feeling lightheaded while she was driving home in her head was bobbing. She talked to a friend on the phone while she drove home. When she arrived home she reports she collapsed to the ground in her head bounced on the floor twice and then she remained unconscious. Patient is on anticoagulation currently for PE that was recently diagnosed. Patient has had increased stress due to a failed SI joint surgery. Related Data Home Medications Medication Instructions Recorded Confirmed brexpiprazole 4 mg tablet (Rexulti) 4 mg PO DAILY 08/18/22 08/19/23 bupropion HCl 150 mg 24 hr tablet, 300 mg PO DAILY 08/18/22 08/19/23 extended release topiramate 50 mg tablet 50 mg PO HS 08/18/22 08/19/23 venlafaxine 75 mg capsule,extended 75 mg PO HS 08/18/22 08/19/23 release 24 hr gabapentin 600 mg tablet 600 mg PO TID 11/17/22 08/19/23 trazodone 150 mg tablet 75 mg PO QHS 11/17/22 08/19/23 cyclobenzaprine 10 mg tablet mg 04/09/23 08/19/23 tramadol 50 mg tablet 50 mg PO Q6H PRN 07/07/23 08/19/23 Allergies Allergy/AdvReac Type Severity Reaction Status Date / Time oxycodone Allergy Mild Rash Verified 08/19/23 09:48 nitrofurantoin AdvReac n/v/d Verified 08/19/23 09:48 [From Macrobid] Sulfa (Sulfonamide AdvReac Photosensit Verified 08/19/23 09:48 Antibiotics) ivity Review of Systems Review of Systems: All systems reviewed & are unremarkable except as noted in HPI and below Constitutional: Constitutional: Reports no additional constitutional complaints ENT: Reports system reviewed and no additional complaints, except as documented Cardiovascular: Cardiovascular: Reports no additional cardiovascular complaints Gastrointestinal: Gastrointestinal: Reports no additional gastrointestinal complaints Neurologic: Reports syncope, Denies headache(s), Denies focal weakness and Denies numbness PMFSH Past Medical History Medical History Anorexia Anxiety Behcets syndrome Celiac disease delivery delivered Chronic diarrhea Degenerative disc disease Depressed Depression with anxiety Encounter for preoperative examination for general surgical procedure Former smoker Fusion congenital, sacroiliac joint Herniated disc Insomnia Lumbar degenerative disc disease Lumbar spine strain 11/2022 Pre-op exam PTSD (post-traumatic stress disorder) Right lower quadrant pain Smoking Thigh numbness Urge incontinence Urinary incontinence Vapes nicotine containing substance Surgical History Surgical History H/O gastric sleeve H/O gastric sleeve (~2014) H/O hysterectomy for benign disease (~2011) no cervix, both ovaries remain History of History of hysterectomy Hx of arthroscopic knee surgery Hx of section 2008, 2010 S/P correction of deviated nasal septum Family History Family History Father Cerebrovascular accident Heart disease Mother Alcohol abuse Father Heart disease Cerebrovascular accident Alcohol abuse Grandparent Cervical cancer Lung cancer Social History Social History Social History: Lives at home with her . Independent with her daily activities. PCP: Dayami Jackson NP. Full code. Smoking packs per day: 1 Smoking cigarettes
[2023-09-15 20:39] LABS: Alanine Aminotransferase 18 U/L (6-35); Albumin Level 4.6 g/dL (3.5-5.1); Alkaline Phosphatase 53 U/L (38-126); Anion Gap 11 mmol/L (4-12); Aspartate Amino Transferase 23 U/L (14-36); Bilirubin,Total 0.7 mg/dL (0.2-1.3); Blood Urea Nitrogen 5 mg/dL (7-17); Calcium 9.4 mg/dL (8.4-10.2); Carbon Dioxide 29 mmol/L (22-30); Chloride 98 mmol/L (98-107); Estimated CRCL calculation 76 ml/min; Estimated Glomerular Filt Rate > 60; Glucose 78 mg/dL (65-110); Potassium 3.5 mmol/L (3.4-5.0); Sodium 138 mmol/L (137-145)
[2023-09-15 21:01] VITALS: BP 108/78; PULSE 95; RESP 15; O2SAT 100
[2023-09-15 21:21] LABS: Appearance Urine Clear (Clear); Bilirubin Urine Negative (Negative); Blood Urine Negative (Negative); Color Urine Yellow (Yellow); Glucose Urine UA Negative (Negative); Ketones Urine Negative (Negative); Leukocyte Esterase Ur Negative LEU/UL (Negative); Nitrate Urine Negative (Negative); Protein Urine Negative (Negative); Specific Grav Ur 1.003 (1.001-1.035); Urobilinogen Urine 0.2 mg/dL (<2.0)
[2023-09-15 21:37] LABS: Add Urine Microscopic? NO
[2023-09-15 22:06] VITALS: BP 122/75; PULSE 84; RESP 16; O2SAT 100
[2023-09-15 22:44] VITALS: BP 129/77; PULSE 84; RESP 18; O2SAT 100
== END 2023-09-15 22:45 | disposition home or self-care (01) ==
PROVIDERS: Emergency Provider Emergency Medicine; PCP Nurse Practitioner Family
DX: R55 Syncope and collapse (principal); F41.9 Anxiety disorder, unspecified; Z87.891 Personal history of nicotine dependence
CPT/HCPCS: 36415; 70450; 71046; 80053; 81003; 81025; 85025; 93005; 96360; 96361; 99284; J7030

== ENCOUNTER 2023-10-08 09:11 | Outpatient (CLI) | payer OTHER, SELFPAY ==
--- NOTE | ~2023-10-08 | XR_ITS ---
EXAMINATION: XR chest 2V DATE: 10/08/2023 09:23 INDICATION: Pulmonary embolism. TECHNIQUE: Frontal and lateral views of the chest were obtained. COMPARISON: Chest 2 views 09/15/2023 FINDINGS: There is no pneumonia, pleural effusion, or pneumothorax. The heart size is normal. There a re disc replacement in cervical spine. There is mild chronic anterior wedging of a midthoracic verteb ral body. IMPRESSION: 1. No acute cardiopulmonary disease. Reviewed, dictated and finalized at location A.
== END 2023-10-08 09:12 ==
LOC: GOSHIMG 09:12
PROVIDERS: PCP Internal Medicine Cardiovascular Disease; Visit Provider Nurse Practitioner Family
DX: I26.99 Other pulmonary embolism without acute cor pulmonale (principal)
CPT/HCPCS: 71046

== ENCOUNTER 2023-10-12 08:23 | Emergency (ER) | payer OTHER, SELFPAY ==
[2023-10-12] VITALS (28 sets, daily range): BP systolic 95–113; BP diastolic 50–79; PULSE 61–110; RESP 10–21; TEMP 36.9–37.1; O2SAT 96–99
--- NOTE | ~2023-10-12 | XR_ITS ---
EXAMINATION: XR chest 2V DATE: 10/12/2023 09:17 INDICATION: Syncope. TECHNIQUE: Frontal and lateral views of the chest were obtained. COMPARISON: Chest 2 views 10/08/2023, chest CT 07/07/2023 FINDINGS: There is no pneumonia, pleural effusion, or pneumothorax. The heart size is normal. There a re changes of disc replacements in cervical spine. IMPRESSION: 1. No acute cardiopulmonary disease. Reviewed, dictated and finalized at location A.
--- NOTE | ~2023-10-12 | CT_ITS ---
CT brain wo con Ordering provider: Musa Parisi MD History: 38 years Female with . syncope, fall . Comparison: None. Technique: CT of the head without contrast. Radiation reduction technique utilized. DLP is 605.33 mGy-cm. FINDINGS: BRAIN PARENCHYMA AND CSF SPACES: No midline shift, mass effect or hemorrhage. Mild ventricular dilata tion in the lateral ventricles. The brain parenchyma and CSF spaces are otherwise normal. VISUALIZED PARANASAL SINUSES: Well aerated. MASTOIDS: Well aerated. BONES: The bones appear intact. SOFT TISSUES: Visualized nasopharynx is normal. Superficial soft tissues are normal. IMPRESSION: No acute intracranial findings. Reviewed, dictated and finalized at location A.
--- NOTE | ~2023-10-12 | CT_ITS ---
EXAMINATION: CT cervical spine wo con DATE: 10/12/2023 09:26 INDICATION: Syncope. Fall. TECHNIQUE: Computed tomography (CT) of the cervical spine was performed without intravenous contrast. Automated exposure control and iterative reconstruction technique were employed. The dose-length pro duct was 361.14 mGy-cm. COMPARISON: CT cervical spine 08/17/2022 FINDINGS: There is kyphosis of cervical spine. There are changes of disc replacements at C5-C6 and C6 -C7. Vertebral body heights are normal. There is mildly decreased disc height at C4-C5. The following disc levels are specifically discussed: C2-C3: There is no uncovertebral joint osteoarthritis. There is mild bilateral facet joint osteoarthr itis. There is no neural foraminal stenosis. There is no central canal stenosis. C3-C4: There is no uncovertebral joint osteoarthritis. There is mild bilateral facet joint osteoarthr itis. There is no neural foraminal stenosis. There is no central canal stenosis. C4-C5: There is no uncovertebral joint osteoarthritis. There is mild right facet joint osteoarthritis . There is no neural foraminal stenosis. There is no central canal stenosis. C5-C6: There is moderate bilateral uncovertebral joint osteoarthritis. There is no facet joint osteoa rthritis. There is mild bilateral neural foraminal stenosis. There is no central canal stenosis. C6-C7: There is mild bilateral uncovertebral joint osteoarthritis. There is no facet joint osteoarthr itis. There is no neural foraminal stenosis. There is no central canal stenosis. C7-T1: There is no uncovertebral joint osteoarthritis. There is moderate right and severe left facet joint osteoarthritis. There is mild left neural foraminal stenosis. There is no central canal stenosi s. IMPRESSION: 1. No fracture. 2. Mild cervical spondylosis. 3. Disc replacements at C5-C6 and C6-C7. Reviewed, dictated and finalized at location A.
--- NOTE | 2023-10-12 08:42 | ECG_ITS ---
Test Date: 2023-10-12 08:47:26 Measurements Intervals [place] Rate: 89 P: 17 AK: 119 QRS: 55 QRSD: 86 T: 29 QT: 358 QTc: 437 Interpretive Statements SINUS RHYTHM WITH SHORT AK INTERVAL Compared to ECG 09/15/2023 20:22:11 Sinus tachycardia no longer present Electronically Signed On 10-12-2023 14:49:27 CDT by Humza Arrington M.D.
[2023-10-12 08:58] LABS: Basophils Percent Auto 0.3 % (0.2-1.2); Eosinophils Percent Auto 0.1 % (0-4.4); Hematocrit 37.7 % (37.0-47.0); Hemoglobin 12.8 g/dL (12.0-15.0); Immature Granulocyte Absolute 0.02 K/mm3 (0.00-0.031); Immature Granulocyte Percent A 0.2 % (0-0.5); Lymphocytes Absolute Auto 0.61 K/mm3 (0.9-3.2); Lymphocytes Percent Auto 6.7 % (18.3-44.2); Mean Corpuscular Hemoglobin 32.8 pg (26-34); Mean Corpuscular Volume 96.7 fl (80-100); Mean Platelet Volume 9.4 fl (7.4-10.4); Monocytes Absolute Auto 0.7 K/mm3 (0.1-0.6); Monocytes Percent Auto 7.3 % (2.6-8.5); Neutrophils Absolute Auto 7.8 K/mm3 (1.3-6.7); Neutrophils Percent Auto 85.4 % (45.5-73.1); Platelet Count Result 263 k/mm3 (150-375); Red Cell Distribution Width 12.3 % (11.5-14.5); White Blood Count 9.1 K/mm3 (4.5-10.0)
[2023-10-12 09:20] LABS: Alanine Aminotransferase 15 U/L (6-35); Alkaline Phosphatase 43 U/L (38-126); Anion Gap 11 mmol/L (4-12); Aspartate Amino Transferase 20 U/L (14-36); Bilirubin,Total 0.7 mg/dL (0.2-1.3); Blood Urea Nitrogen 8 mg/dL (7-17); Calcium 8.5 mg/dL (8.4-10.2); Carbon Dioxide 26 mmol/L (22-30); Chloride 99 mmol/L (98-107); Estimated CRCL calculation 87 ml/min; Estimated Glomerular Filt Rate > 60; Glucose 104 mg/dL (65-110); Potassium 3.6 mmol/L (3.4-5.0); Sodium 136 mmol/L (137-145)
[2023-10-12] MEDS: SODIUM CHLORIDE 0.9% IV 1,000 ML 999 ML IV CONT (10:01)
[2023-10-12] MEDS: ONDANSETRON INJ 4 MG/2 ML VIAL IV PUSH (10:02)
[2023-10-12] MEDS: MECLIZINE HCL 12.5 MG TABLET PO (10:02)
[2023-10-12] MEDS: FAMOTIDINE 20 MG/2 ML VIAL IV PUSH (10:02)
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
[2023-10-12 11:04] LABS: Add Urine Microscopic? NO; Appearance Urine Clear (Clear); Bilirubin Urine Negative (Negative); Blood Urine Negative (Negative); Color Urine Yellow (Yellow); Glucose Urine UA Negative (Negative); Ketones Urine Negative (Negative); Leukocyte Esterase Ur Negative LEU/UL (Negative); Nitrate Urine Negative (Negative); Protein Urine Negative (Negative); Specific Grav Ur 1.015 (1.001-1.035); pH Urine 6.5 (5.0-9.0)
[2023-10-12 11:11] LABS: Troponin I < 0.012 ng/mL (0.000-0.034)
[2023-10-12 11:26] LABS: Influenza A QL RT-PCR Negative (Negative); Influenza B QL RT-PCR Negative (Negative); RSV RNA, RT-PCR Negative (Negative); SARS-CoV-2 RNA PCR Negative (Negative)
== END 2023-10-12 12:40 | disposition home or self-care (01) ==
PROVIDERS: Emergency Medicine; Emergency Provider Nurse Practitioner Family; PCP Nurse Practitioner Family
DX: R55 Syncope and collapse (principal); Z87.891 Personal history of nicotine dependence; Z20.822 Contact with and (suspected) exposure to COVID-19; W19.XXXA Unspecified fall, initial encounter
CPT/HCPCS: 36415; 70450; 71046; 72125; 80053; 81003; 84484; 85025; 87637; 93005; 96361; 96374; 96375; 99284; A9270; J2405; J7030

== ENCOUNTER 2023-10-22 12:56 | Outpatient (CLI) | payer OTHER, SELFPAY ==
--- NOTE | ~2023-10-22 | CT_ITS ---
EXAMINATION: CTA chest PE protocol DATE: 10/22/2023 13:42 INDICATION: Pulmonary embolism TECHNIQUE: Computed tomography angiography (CTA) of the chest was performed with 100 mL Omnipaque-350 intravenous contrast timed to evaluate the pulmonary arteries. Coronal maximum intensity projection 3D-reconstructions were created by the technologist. Automated exposure control and iterative reconst ruction technique were employed. Exam dose: 205.99 mGy-cm total exam DLP. COMPARISON: 07/07/2023 CT pulmonary scan FINDINGS: There is no evidence of pulmonary embolism including former site of subtle focal right lowe r lobe pulmonary embolism on 07/07/2023. Normal heart size. No pericardial or pleural effusion. No thoracic aortic aneurysm. No hilar or media stinal enlargement. Small sliding hiatal hernia. Postoperative change of the stomach.. Lungs are clear of consolidation. IMPRESSION: No evidence of pulmonary embolism Reviewed, dictated and finalized at Location A. Reviewed, dictated and finalized at location J.
== END 2023-10-22 12:57 | disposition home or self-care (01) ==
PROVIDERS: PCP Nurse Practitioner Family; Visit Provider Internal Medicine Cardiovascular Disease
DX: I26.99 Other pulmonary embolism without acute cor pulmonale (principal)
CPT/HCPCS: 71275; Q9967

== ENCOUNTER 2023-11-08 14:21 | Emergency (ER) | payer OTHER, SELFPAY ==
--- NOTE | ~2023-11-08 | CT_ITS ---
EXAMINATION: CT abdomen pelvis w con DATE: 11/08/2023 16:26 INDICATION: Nausea, vomiting and diarrhea post gastric sleeve procedure without appropriate follow-up . TECHNIQUE: Computed tomography (CT) of the abdomen and pelvis was performed with 100 mL Omnipaque-350 intravenous contrast. Automated exposure control and iterative reconstruction technique were employe d. The dose-length product was 467.82 mGy-cm. COMPARISON: Chest CT dated 10/22/2023 FINDINGS: Lung bases are clear. Heart size is normal. No pericardial or pleural effusion. Minimal sliding-type hiatal hernia. Suture line along the greater curvature of the stomach consistent with reported prior sleeve gastrectomy. Peripheral puddling of contrast at a 1.8 cm hemangioma at the posterior dome of t he liver. Additional nearby 5 mm low-attenuation lesion most likely additional hemangiomas or hepatic cyst. Gallbladder, spleen, pancreas, bilateral adrenal glands and kidneys are normal. Bowels includi ng the appendix are normal. 2.7 cm left adnexal cyst/follicle. Right adnexa is unremarkable. The uter us is not identified and has likely been surgically resected. Bladder is normal. No free intraperiton eal gas or fluid. No pathologically enlarged abdominal or pelvic lymphadenopathy. Mild lumbar spondyl osis. There are couple fixation screws spanning the posterior aspect of the left sacroiliac joint. IMPRESSION: 1. Minimal sliding-type hiatal hernia with change of prior sleeve gastrectomy. No acute intra-abdomin al/pelvic process. Reviewed, dictated and finalized at location A. IMPRESSION: 1. Minimal sliding-type hiatal hernia with change of prior sleeve gastrectomy. No acute intra-abdominal/pelvic process.
[2023-11-08 14:32] VITALS: BP 110/70; PULSE 112; RESP 17; TEMP 36.8; O2SAT 98
--- NOTE | 2023-11-08 15:44 | ED.NAVMDI ---
HPI - Nausea/Vomiting/Diarrhea General Chief complaint: Nausea/Vomiting/Diarrhea Stated complaint: n/v/d Time Seen by Provider: 11/08/23 15:35 Source: patient and family (son) Mode of arrival: ambulatory Limitations: no limitations History of Present Illness HPI Narrative: Patient presents with N/V/D. She has vomited 4x today, non bloody. 6 episodes of NB diarrhea including her last bowel movement. Has been present since Wednesday, the past 3 days seems to be getting worse. Last oral intake 3 days ago, decreased PO. Took 2 Zofran at home. Also having body aches. History of gastric sleeve surgery but never really had follow up care after this and has had GI issues/nausea since. Not on routine multivitamins. Started Semiglutide recently. Had been increased to 2U/20 recently and then told to go back to 1U / 10 after symptoms worsened which she did but then advised could resume 2U/20. No abdominal pain. PCP had been a physician who possibly just left their practice. Related Data Home Medications Medication Instructions Recorded Confirmed brexpiprazole 4 mg tablet (Rexulti) 4 mg PO DAILY 08/18/22 10/28/23 bupropion HCl 150 mg 24 hr tablet, 300 mg PO DAILY 08/18/22 10/28/23 extended release topiramate 50 mg tablet 50 mg PO HS 08/18/22 10/28/23 venlafaxine 75 mg capsule,extended 75 mg PO HS 08/18/22 10/28/23 release 24 hr gabapentin 600 mg tablet 600 mg PO TID 11/17/22 10/28/23 trazodone 150 mg tablet 75 mg PO QHS 11/17/22 10/28/23 tramadol 50 mg tablet 50 mg PO Q6H PRN 07/07/23 10/28/23 omeprazole 40 mg capsule,delayed 40 mg PO DAILY 10/07/23 10/28/23 release Allergies Allergy/AdvReac Type Severity Reaction Status Date / Time oxycodone Allergy Mild Rash Verified 10/28/23 09:55 nitrofurantoin AdvReac n/v/d Verified 10/28/23 09:55 [From Macrobid] Sulfa (Sulfonamide AdvReac Photosensit Verified 10/28/23 09:55 Antibiotics) [facility] Past Medical History Medical History Anorexia Anxiety Behcets syndrome Celiac disease delivery delivered Chronic diarrhea Degenerative disc disease Depressed Depression with anxiety Encounter for preoperative examination for general surgical procedure Former smoker Fusion congenital, sacroiliac joint Herniated disc Insomnia Lumbar degenerative disc disease Lumbar spine strain 11/2022 Pre-op exam PTSD (post-traumatic stress disorder) Right lower quadrant pain Smoking Thigh numbness Urge incontinence Urinary incontinence Vapes nicotine containing substance Surgical History Surgical History H/O gastric sleeve (~2014) [facility] H/O hysterectomy for benign disease (~2011) no cervix, both ovaries remain History of History of hysterectomy Hx of arthroscopic knee surgery Hx of section 2008, 2010 S/P correction of deviated nasal septum Family History Family History Father Cerebrovascular accident Heart disease Mother Alcohol abuse Father Heart disease Cerebrovascular accident Alcohol abuse Grandparent Cervical cancer Lung cancer Social History Social History Social History: Lives at home with her . Independent with her daily activities. PCP: Dayami Jackson NP. Full code. Smoking packs per day: 1 Smoking cigarettes per day: 20.0 Years smoked: 15 Smoking pack-years: 15.00 Smoking status: Former smoker Tobacco type: cigarettes and e-cigarettes/vaping Additional smoking assessment comments: Quit cigarettes 1 year ago, vapes daily Alcohol intake: current Alcohol use details: Once monthly alcohol use Substance use: current Substance use type: marijuana Last use: Daily use Lack of Transportation: No Lack of Food: Never True Current Housing: I Have Housing Concerned About Future Housing: No Difficulty Paying Gas/Electri
[2023-11-08 16:01] LABS: BEDSIDEPREGUCG Negative
[2023-11-08] MEDS: SODIUM CHLORIDE 0.9% IV 1,000 ML 999 ML IV CONT (16:02)
[2023-11-08 16:07] LABS: Basophils Percent Auto 0.4 % (0.2-1.2); Eosinophils Percent Auto 0.4 % (0-4.4); Hematocrit 41.3 % (37.0-47.0); Hemoglobin 14.5 g/dL (12.0-15.0); Immature Granulocyte Absolute 0.01 K/mm3 (0.00-0.031); Immature Granulocyte Percent A 0.2 % (0-0.5); Lymphocytes Absolute Auto 1.35 K/mm3 (0.9-3.2); Lymphocytes Percent Auto 23.7 % (18.3-44.2); Mean Corpuscular HGB Conc 35.1 g/dl (32-36); Mean Corpuscular Hemoglobin 32.9 pg (26-34); Mean Corpuscular Volume 93.7 fl (80-100); Mean Platelet Volume 9.3 fl (7.4-10.4); Monocytes Absolute Auto 0.5 K/mm3 (0.1-0.6); Monocytes Percent Auto 8.1 % (2.6-8.5); Neutrophils Absolute Auto 3.8 K/mm3 (1.3-6.7); Neutrophils Percent Auto 67.2 % (45.5-73.1); Platelet Count Result 313 k/mm3 (150-375); Red Blood Count 4.41 M/mm3 (4.2-5.4); White Blood Count 5.7 K/mm3 (4.5-10.0)
[2023-11-08 16:11] LABS: Bacteria Urine None Seen /hpf; Non Pathogenic Casts 0-2; RBC Urine 0-2 /hpf (0-2); Squamous Epithelial Cell Urine None Seen /hpf (Few); WBC Urine 0-5 /hpf (0-3)
[2023-11-08 16:16] LABS: Estimated CRCL calculation 76 ml/min; Estimated Glomerular Filt Rate > 60
[2023-11-08 16:24] LABS: Add Urine Microscopic? YES; Color Urine Yellow (Yellow)
[2023-11-08 16:25] LABS: Appearance Urine Clear (Clear); Bilirubin Urine 1+ (Negative); Blood Urine Negative (Negative); Glucose Urine UA Negative (Negative); Ketones Urine 4+ mg/dL (Negative); Leukocyte Esterase Ur Negative LEU/UL (Negative); Nitrate Urine Negative (Negative); Protein Urine Negative (Negative); Specific Grav Ur 1.015 (1.001-1.035)
[2023-11-08 16:25] LABS: Influenza A QL RT-PCR Negative (Negative); Influenza B QL RT-PCR Negative (Negative); RSV RNA, RT-PCR Negative (Negative); SARS-CoV-2 RNA PCR Negative (Negative)
[2023-11-08 16:35] LABS: Alanine Aminotransferase 17 U/L (6-35); Albumin Level 4.5 g/dL (3.5-5.1); Alkaline Phosphatase 49 U/L (38-126); Anion Gap 13 mmol/L (4-12); Aspartate Amino Transferase 30 U/L (14-36); Bilirubin,Total 1.6 mg/dL (0.2-1.3); Blood Urea Nitrogen 8 mg/dL (7-17); Calcium 9.3 mg/dL (8.4-10.2); Carbon Dioxide 23 mmol/L (22-30); Chloride 100 mmol/L (98-107); Estimated CRCL calculation 86 ml/min; Estimated Glomerular Filt Rate > 60; Glucose 85 mg/dL (65-110); Lipase 97 U/L (23-300); Magnesium 1.7 mg/dL (1.6-2.3); Potassium 3.9 mmol/L (3.4-5.0); Sodium 136 mmol/L (137-145)
[2023-11-08 16:37] VITALS: BP 115/74; PULSE 95; RESP 18; O2SAT 97
[2023-11-08] MEDS: PROCHLORPERAZINE EDISYLATE 10 MG/2 ML VIAL 5 MG IV PUSH (17:33)
[2023-11-08] MEDS: diphenhydrAMINE HCl INJ 50 MG/ML VIAL 12.5 MG IV PUSH (17:34)
[2023-11-08] MEDS: PANTOPRAZOLE 40 MG TABLET PO (17:34)
[2023-11-08] MEDS: DEXTROSE 5%/0.9% SOD CHL 1,000 ML 250 ML IV CONT (17:34)
[2023-11-08 17:50] VITALS: BP 104/63; PULSE 75; RESP 16; O2SAT 100
== END 2023-11-08 18:47 | disposition home or self-care (01) ==
PROVIDERS: Emergency Provider Student in an Organized Health Care Education/Training Program; PCP Nurse Practitioner Family
DX: K44.9 Diaphragmatic hernia without obstruction or gangrene (principal); R11.0 Nausea; Z79.899 Other long term (current) drug therapy; Z87.891 Personal history of nicotine dependence; Z20.822 Contact with and (suspected) exposure to COVID-19
CPT/HCPCS: 36415; 74177; 80053; 81001; 81025; 83690; 83735; 85025; 87637; 96361; 96374; 96375; 99284; A9270; J0780; J1200; J7030; J7042; Q9967

== ENCOUNTER 2023-11-22 14:11 | Outpatient (CLI) | payer OTHER, SELFPAY ==
--- NOTE | ~2023-11-22 | XR_ITS ---
EXAM: XR hip LT min 2V DATE: 11/22/2023 14:34 HISTORY: Lt hip pain . COMPARISON: None available. FINDINGS: Normal mineralization. No fracture or dislocation. No lytic or blastic lesion. Joint space s are maintained. Uncomplicated appearing left SI joint fusion hardware. No erosion or periosteal shavon nge. Soft tissues within normal limits. IMPRESSION: Unremarkable left hip radiograph findings. Reviewed, dictated and finalized at location K.
== END 2023-11-22 14:12 | disposition home or self-care (01) ==
PROVIDERS: PCP Nurse Practitioner Family; Visit Provider Neurological Surgery
DX: M54.16 Radiculopathy, lumbar region (principal); M46.1 Sacroiliitis, not elsewhere classified
CPT/HCPCS: 73502

== ENCOUNTER 2024-03-23 10:05 | Outpatient (CLI) | payer OTHER, SELFPAY ==
--- NOTE | ~2024-03-23 | MR_ITS ---
EXAMINATION: MR lumbar spine wo con DATE: 03/23/2024 10:48 INDICATION: Lumbar radicular pain. TECHNIQUE: Magnetic resonance imaging (MRI) of the lumbar spine was performed without intravenous con trast. COMPARISON: Lumbar spine MRI 07/28/2023 FINDINGS: There is 10 degrees levoscoliosis of lumbar spine. Vertebral body heights are normal. There is mildly decreased disc height at L4-L5 and moderately decreased disc height at L5-S1. The distal s neal cord signal intensity is normal. The conus medullaris is at L1-L2. The following disc levels ar e specifically discussed: L1-L2: The disc does not extend beyond the endplate margin. There is mild bilateral facet joint osteo arthritis. There is no neural foraminal stenosis. There is no central canal stenosis. L2-L3: The disc does not extend beyond the endplate margin. There is mild left facet joint osteoarthr itis. There is no neural foraminal stenosis. There is no central canal stenosis. L3-L4: The disc is mildly bulging. There is mild bilateral facet joint osteoarthritis. There is mild bilateral neural foraminal stenosis. There is no central canal stenosis. L4-L5: The disc is bulging. There is mild bilateral facet joint osteoarthritis. There is mild bilater al neural foraminal stenosis. There is no central canal stenosis. L5-S1: The disc is bulging and has an annular fissure. There is moderate bilateral facet joint osteoa rthritis. There is mild bilateral neural foraminal stenosis. There is mild central canal stenosis. Th ere are changes of right hemilaminotomy with small volume of granulation tissue in the right neural f oramen. IMPRESSION: 1. Stable moderate lower lumbar spondylosis. Reviewed, dictated and finalized at location A. LASS [employer]TER
== END 2024-03-23 10:06 | disposition home or self-care (01) ==
LOC: GOSHIMG 10:05
PROVIDERS: PCP Nurse Practitioner Family; Visit Provider Nurse Practitioner Family
DX: M47.816 Spondylosis without myelopathy or radiculopathy, lumbar region (principal)
CPT/HCPCS: 72148

== ENCOUNTER 2024-05-23 14:47 | Outpatient (CLI) | payer OTHER, SELFPAY ==
--- OUTSIDE RECORDS SUMMARY | 2024-05-23 16:43 | XMS_ITS | Clinical Summary ---
Author Organization [facility] Address [address] [place] [address] Care Team Providers Care Investment Broker Name Role Phone Unavailable Primary Care Provider Unavailabl e Allergies Active Allergy Reactions Criticality Noted Date Comments Macrolide Antibiotics Nausea and Vomiting Low 08/03 Oxycodone Rash Low 08/04/2023 Sulfa (Sulfonamide Antibiotics) Photosensitivity,[facility] 03/10/2019 Medications omeprazole (PriLOSEC) 20 mg Capsule, Delayed Release(E.C.) Take 20 mg by mouth daily. Active GABAPENTIN ORAL Take by mouth. Active cyclobenzaprine HCl (CYCLOBENZAPRINE ORAL) Take by mouth. Active buPROPion HCL (WELLBUTRIN XL) 150 mg Extended Release 24 hour tablet Take 150 mg by mouth daily. Active topiramate (TOPAMAX) 25 mg tablet Take 25 mg by mouth 2 times daily. Active traZODone (DESYREL) 100 mg tablet Take 100 mg by mouth daily at bedtime. Active venlafaxine HCl (VENLAFAXINE ORAL) Take by mouth. Active tramadol HCl (TRAMADOL ORAL) Take by mouth. Active Rexulti 4 mg Tablet Take 4 mg by mouth daily. 4 Active testosterone (ANDROGEL) 1 % (50 mg/5 gram) Gel in Packet Apply 1 Packet to skin as directed daily. Active progesterone micronized (PROMETRIUM) 100 mg Capsule Take 200 mg by mouth daily. Active apixaban (ELIQUIS) 5 mg tabletIndication s:Acute pulmonary embolism, unspecified pulmonary embolism type, unspecified whether acute cor pulmonale present (CMS/HCC) Take 1 Tablet (5 mg) by mouth 2 times daily. 120 Tablet 3 05/29/202 4 Active Active Problems No known active problems Encounters Date Type Department Care Team Description 05/13/2024 External Device Data ST[facility] ABSTRACTION Provider, Abstract 05/12/2024 External Device Data [facility] ABSTRACTION Provider, Abstract 05/09/2024 External Device Data [facility] ABSTRACTION Provider, Abstract 04/25/2024 External Device Data [facility] ABSTRACTION Provider, Abstract 03/30/2024 External Device Data [facility] ABSTRACTION Provider, Abstract 03/29/2024 External Device Data [facility] ABSTRACTION Provider, Abstract 03/28/2024 External Device Data [facility] ABSTRACTION Provider, Abstract 03/22/2024 External Device Data ST[facility] ABSTRACTION Provider, Abstract from Last 3 Months Family History Medical History Relation Name Comments No Known Problems Brother No Known Problems Child 1 No Known Problems Child 2 Heart Disease Father No Known Problems Mother Heart Disease Paternal Grandmother No Known Problems Sister Relation Name Status Comments Brother Alive Child 1 Alive Child 2 Alive Father Mother Alive Paternal Grandmother Sister Alive Social History Tobacco Use Types Packs/Day Years Used Date Smoking Tobacco: Former Cigarettes 1 20 Q uit: 08/03/2020 Comments:Cartage lasts about two weeks. Alcohol Use Standard Drinks/Week Comments Yes 0 (1 standard drink = 0.6 oz pur e alcohol) socially Comments Unknown Sex and Gender Information Value Date Recorded Sex Assigned at Not on file Legal Sex Female 9:09 AM CDT Gender Identity Not on file Sexual Orientation Not on file Last Filed Vital Signs Vital Sign Reading Time Taken Comments Blood Pressure 116/79 08/04/2023 11:38 AM CDT Pulse 86 08/04/2023 11:38 AM CDT Temperature 36.8 C (98.2 F) 08/04/2023 11:38 AM CDT Respiratory Rate 16 08/04/2023 11:38 AM CDT Oxygen Saturation 98% 08/04/2023 11:38 AM CDT Inhaled Oxygen Concentration - - Weight 75.8 kg (167 lb 3.2 oz) 08/04/2023 11:38 AM CDT Height 152.4 cm (5') 08/04/2023 11:38 AM CDT Body Mass Index 32.65 08/04/2023 11:38 AM CDT Plan of Treatment Health Maintenance Due Date Last Done Comments Pre-Diabetes and Diabetes Screening 1985 DTAP/TDAP/TD VACCINES (1 - Tdap) 08/23/2003 HEPATITIS B VACCINES (1 of 3 - 19+ 3-dose series) 08/23/2003 CERVICAL CANCER SCREENING 2014 INFLUENZA VACCINE (#1) 2023 0, 12/03/2018 COVID-19 Vaccine (2 - season) 2023 02/15/2021 HPV VACCINES Aged Out No longer eligi ble based on patient's age to complete this topic Insurance [facility] [id number]
--- OUTSIDE RECORDS SUMMARY | 2024-05-23 16:43 | XMS_ITS ---
Author Organization [facility] Address [address] [facility] [address] [address] Care Team Providers Care Rural Carrier Associate Name Role Phone Dayami Castillo Primary Care Provider UnavailMagdalena Camejo Unavailable [phone] REASON FOR VISIT R/S woke up with a fever & sore throat Social History Sex Assigned At : Social History Observation Description Sex Assigned At Female Encounters Encounter Location Date Provider Diagnosis [facility] [employer] [place] [id number] [address] 05/17/2024 Magdalena West Plan Of Treatment Next Appt Details Provider Name:Magdalena West, 05/23/2024 04:45:00 PM, [address] [place] [address], [address], [address], Provider Name:Vickie Patino, 05/24/2024 11:00:00 AM, [address] [place] [address] [address], [address], [address], Progress Notes * ORTIZ BRADFORD LDOB: (38 yo F)Acc No.[id number]:05/17/2024 Patient: Kuldeep ORTIZ SPARKS Provider: MURIEL DURANHNCheko :1985 A ge:38 Y S ex:Female Date:05/17/2024 Address:[address] [id number] Pcp:Dayami MOREIRAP Subjective: * Chief Complaints: * 1 . R/S woke up with a fever & sore throat. * Medical History: Objective: * Vitals: Assessment: Plan: * Treatment: * Billing Information: * Visit Code: * Procedure Codes: * Electronic signature of IDALIA Young on 05/23/2024 at 04:43 PM CDT Sign off status: Pending * Provider: IDALIA DURAN Date: 0 05/17/2024 Generated for Estrella ballard/Afua/Harleensmitting on: 05/23/2024 04:43 PM CDT
--- OUTSIDE RECORDS SUMMARY | 2024-05-23 16:43 | XMS_ITS | Data Portability ---
Author Organization [place] - [facility] Address [address] [place] [address] Assessment No assessment recorded. Plan of Treatment Reminders Order Date Submit Date Provider Last Modified By Organization Details Last Modified Time Details Appointments None record ed. Lab None record ed. Referral None record ed. Procedures None record ed. Surgeries None record ed. Imaging None record ed. Medication Orders None record ed. Patient TargetsNo targets recorded. Patient InstructionsNo instructions recorded. Reason for Referral None Reported. Medical Equipment None Reported. Vitals None Recorded Social History None recorded. Functional Status None recorded. Mental Status None recorded. Family History Nothing Reported. Medical History No medical history recorded. Gynecological HistoryNo gynecological history recorded. Obstetrics History GPAL:G 0 P 0 0 0 0 Immunizations Vaccine Type Date Status Note Provider Nam e and Address Organization Details Recorded Time COVID-19, mRNA, LNP-S, PF, 30 mcg/0.3 mL dose 02/15/[address], [address], [place] - [facility] 02/17/2021 18:25:11 Past Encounters Encounter ID Performer Location Encounter Start Date Encounter Closed Date Diagnosis/Indication Diagnosis SNOMED-CT Code Diagnosis ICD10 Code Diagnosis Note [id number] [facility] [address] [place] [address] 02/15/2021 19:03:13 02/15/2021 21:29:27 Administration of SARS-CoV-2 antigen vaccine [id number] Patient consents to the Pfizer COVID vaccine and completes the pre-vaccin ation checklist, all answers are negative. Immunizati on given to pt. without difficulty . Pt. tolerated well. Patient observed for {{15* 30}} minutes post vaccinatio n and experience d no adverse effects. Pt left in good condition. Health Concerns Section Related Observation LastModified by Organization Detai ls LastModified Time None Recorded Concern Status LastModified by Organization Details LastModified Time None Recorded Advance Directives Directive None Recorded Payers Encounter Date Sequence Insurance Name Policy Number Policy Grubbs Covered Member ID Grubbs Member ID Guarantor Name 02/15/2021 1 [employer] [place] [employer] [facility] (PPO) [id number] Shadi Sylvester [id number] Della Sylvester OBGyn Episode No OBEpisode recorded.
--- OUTSIDE RECORDS SUMMARY | 2024-05-23 16:43 | XMS_ITS ---
Author Organization [facility] [employer] [facility] Address [address] [address] Care Team Providers Care Electorate Officer Name Role Phone Manuel COBB Dayami Primary Care Provider Unavailab Magdalena Kearney Unavailable [phone] REASON FOR VISIT Refill Medications Medication SIG (Take, Route, Frequency, Duration) Notes Start Date End Date Status Venlafaxine HCl ER 75 MG 1 capsule Oral Once a day for 30 days Active Social History Sex Assigned At : Social History Observation Description Sex Assigned At Female Encounters Encounter Location Date Provider Diagnosis [facility] [employer] [facility] [address] [address] [address] 05/22/2024 Magdalena West Generalized anxiety disorder F41.1 Assessments Encounter Date Diagnosis (ICD Code) Assessment Notes Treatment Notes Treatment Clinical Notes Section Notes 05/22/2024 Generalized anxiety disorder (ICD-10 - F41.1) Plan Of Treatment Medication Medication Name Sig Start Date Stop Date Notes Venlafaxine HCl ER 75 MG 1 capsule Oral Once a day for 30 days Next Appt Details Provider Name:Magdalena West, 05/23/2024 04:45:00 PM, [address], [address], [address], Provider Name:Vickie Patino, 05/24/2024 11:00:00 AM, [address], [address], [place], [address], Progress Notes * ORTIZ BRADFORD LDOB: (38 yo F)Acc No.[id number]:05/22/2024 Patient: ORTIZ TRACY :1985 A ge:38 Y S ex:Female Address: [place], [address] * Refills Refill Venlafaxine HCl ER Capsule Extended Release 24 Hour, 75 MG, Oral, 30 Capsule, 1 capsule, Once a day, 30 days, Refills=0 * true * Date: Generated for Estrella ballard/Afua/Harleensmitting on: 0 05/23/2024 04:43 PM CDT
--- OUTSIDE RECORDS SUMMARY | 2024-05-23 16:43 | XMS_ITS ---
Author Organization [facility] Address [address] [place] [address] Care Team Providers Care Truck Trailer Mechanic Name Role Phone Carlene Castilloh Primary Care Provider UnavailMagdalena Camejo Unavailable [phone] Allergies Allergen (clinical drug ingredient) Drug/Non Drug Allergy documented on EMR Reaction Allergy Type Onset Date Status Substance with sulfonamide structure and antibacterial mechanism of action (substance) SULFA (SULFONAMIDE ANTIBIOTICS) (uncoded) Unknown Allergy 05/24/2023 Active nitrofurantoin, macrocrystals / nitrofurantoin, monohydrate Macrobid Unknown Drug Allergy 05/24/2023 Active nickel Nickel Unknown Allergy 05/24/2023 Active REASON FOR VISIT follow-up Medications Medication SIG (Take, Route, Frequency, Duration) Notes Start Date End Date Status Venlafaxine HCl ER 75 MG 1 capsule Oral Once a day for 30 days Active Topiramate 25 MG 1 tablet Oral Once a day for 90 days Active buPROPion HCl ER (XL) 300 MG 1 tablet in the morning Oral Once a day for 90 days total dose 450mg 05/24/2023 Active buPROPion HCl ER (XL) 150 MG 1 tablet in the morning Orally Once a day for 90 days total dose 450mg 11/17/2023 Active Methylphenidate HCl ER (OSM) 18 MG 1 tablet in the morning Orally Once a day for 30 days 04/26/2024 05/26/2024 Active Ondansetron 4 MG Oral 05/24/2023 Ac tive Gabapentin 600 MG Oral 05/24/2023 A ctive Rexulti 4 mg 1 tablet Oral daily for 21 days 21 days per insurance requirement Active traZODone HCl 150 MG 0.5 tablet as needed at bedtime Oral Once a day for 90 days 05/24/2023 Active Cyclobenzaprine HCl 10 MG Oral 05/24/2023 Active Lidocaine 5% External 05/24/2023 Active Omeprazole 40 MG Oral 05/24/2023 Ac tive Social History Tobacco Use: Social History Observation Description Date Details (start date - stop date) Current Smoker NA - NA Sex Assigned At : Social History Observation Description Sex Assigned At Female Tobacco Control (Standard) Question Answer Notes Tobacco use: Current smoker Encounters Encounter Location Date Provider Diagnosis [place] [address] [address] 05/23/2024 Magdalena West Plan Of Treatment Next Appt Details Provider Name:Magdalena West, 05/23/2024 04:45:00 PM, [facility] [address], [address], [address], Provider Name:Vickie Patino, 05/24/2024 11:00:00 AM, [facility] [address], [address], [address], Progress Notes * ORTIZ BRADFORD LDOB: (38 yo F)Acc No.[id number]:05/23/2024 Patient: ORTIZ TRACY Provider: Cheli WEST PMHNP :1985 A ge:38 Y S ex:Female Date:05/23/2024 [facility] [address] [facility] Pcp:Dayami COBB Subjective: * Chief Complaints: * 1 . Follow-up. * HPI: D epression Screening: YANDY-7 (2018 Edition) F eeling nervous, anxious, or on edge S everal N ot being able to stop or control worrying?Several days W orrying too much about different things S everal T rouble relaxing S everal B eing so restless that it is hard to sit still S ever B ecoming easily annoyed or irritable S ever F eeling afraid as if something awful might happen S [place]-Suicide Severity Rating Scale: Suicide Risk (CSRS-screener) i n the past one month Have you wished you were or wished you could go to sleep and not wake up? N o i n the past one month Have you actually had any thoughts of killing yourself? N o H ave you ever done anything, started to do anything, or prepared to do anything to end your life? Y es D epression screening: PHQ-9 L ittle interest or pleasure in doing things?Several days F eeling down, depressed, or hopeless S T rouble falling or staying asleep, or sleeping too much N ot at all F eeling tired or having little energy N early every day P oor appetite or overeating N ot at all F eeling bad about yourself or that you are a failure, or have let yourself or your family down S T rouble concentrating on things, such as reading the newspaper or watching television S M oving or speaking so slowly that other people could have noticed; or the opposite, being so fidgety or restless that you have been moving around a lot more than usual N ot at all T houghts that you would be better off or of hurting yourself in some way N ot at all * Medical History: P roblems: Attention deficit hyperactivity disorder, combined type, Cannabis dependence, Generalized anxiety disorder, Insomnia disorder related to another mental disorder, Mild recurrent major depression, Posttraumatic stress disorder, ,. * Social History: T obacco Use: T obacco Control (Standard) T obacco use: C urrent smoker D rug/Alcohol: D o you smoke marijuana?: Denies. Do you drink alcohol?: No. M iscellaneous: A dvance Care Planning A re you your own decision-maker Y es * Medications: T aking Omeprazole 40 MG Capsule Delayed Release Oral , Taking Lidocaine 5% Patch External , Taking Cyclobenzaprine HCl 10 MG Tablet Oral , Taking Ondansetron 4 MG Tablet Disintegrating Oral , Taking Gabapentin 600 MG Tablet Oral , Taking Rexulti 4 mg Tablet 1 tablet Oral daily , Notes to Pharmacist: 21 days per insurance requirement, Taking traZODone HCl 150 MG Tablet 0.5 tablet as needed at bedtime Oral Once a day , Taking Topiramate 25 MG Tablet 1 tablet Oral Once a day , Taking buPROPion HCl ER (XL) 300 MG Tablet Extended Release 24 Hour 1 tablet in the morning Oral Once a day total dose 450mg, Taking buPROPion HCl ER (XL) 150 MG Tablet Extended Release 24 Hour 1 tablet in the morning Orally Once a day total dose 450mg, Taking Methylphenidate HCl ER (OSM) 18 MG Tablet Extended Release 1 tablet in the morning Orally Once a day , stop date 05/26/2024, Taking Venlafaxine HCl ER 75 MG Capsule Extended Release 24 Hour 1 capsule Oral Once a day * Allergies: S ULFA (SULFONAMIDE ANTIBIOTICS): Allergy - Onset Date 05/24/2023, Macrobid: Allergy - Onset Date 05/24/2023, Nickel: Allergy - Onset Date 05/24/2023. Objective: * Vitals: Assessment: Plan: * Treatment: * Billing Information: * Visit Code: * Procedure Codes: * Electronic signature of IDALIA Young on 05/23/2024 at 04:43 PM CDT Sign off status: Pending * Provider: IDALIA DURAN Date: 05/23/2024 Generated for Estrella Decker/Mejia on: 05/23/2024 04:43 PM CDT History and Physical Notes * HPI (History of Present Illness) Category Sub-Category Detail Notes Category Not es Depression screening PHQ-9 Little inte rest or pleasure in doing things: Several days Feeling down, depressed, or hopeless: Se veral days Trouble falling or staying asleep, or sl eeping too much: Not at all Feeling tired or having little energy: N early every day Poor appetite or overeating: Not at all Feeling bad about yourself o r that you are a failure, or have let yourself or your family down: Several days Trouble concentrating on thi ngs, such as reading the newspaper or watching television: Several days Moving or speaking so slowly that other people could have noticed; or the opposite, being so fidgety or restless that you have been moving around a lot more than usual: Not at all Thoughts that you would be b sallie off or of hurting yourself in some way: Not at all Depression Screening YANDY-7 (2018 Edition) Feelin g nervous, anxious, or on edge: Several days Not being able to stop or control worryi ng: Several days Worrying too much about different things : Several days Trouble relaxing: Several days Being so restless that it is hard to sit still: Several days Becoming easily annoyed or irritable: Se veral days Feeling afraid as if something awful lata ht happen: Several days [place]-Suicide Severity Rating Scale Suicide Risk (CSRS-screener) in the past one month Have you wished you were or wished you could go to sleep and not wake up?: No in the past one month Have y ou actually had any thoughts of killing yourself?: No Have you ever done anything, started to do anything, or prepared to do anything to end your life?: Yes
--- OUTSIDE RECORDS SUMMARY | 2024-05-23 16:43 | XMS_ITS | Encounter Summary ---
Author Organization [facility] [employer] [facility] Address [address] [place] [address] Care Team Providers Care In Service Coordinator Name Role Phone Unavailable Primary Care Provider Unavailabl e Encounter Details Date Type Department Care Team (Late st Contact Info) Description 08/05/2023 Abstract [facility] Oncology and Hematology - [place] [address] [facility] [address] [place] [address] Deric Vigil MD [address] [facility] [address] [place] [address] Social History Tobacco Use Types Packs/Day Years [...] on file Sexual Orientation Not on file documented as of this encounter Plan of Treatment Not on file documented as of this encounter Visit Diagnoses Not on filedocumented in this encounter
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
[2024-05-23 19:36] LABS: Hematocrit 38.2 % (37.0-47.0); Mean Corpuscular Hemoglobin 32.7 pg (26-34); Mean Corpuscular Volume 96.2 fl (80-100); Mean Platelet Volume 9.8 fl (7.4-10.4); Platelet Count Result 322 k/mm3 (150-375); Red Blood Count 3.97 M/mm3 (4.2-5.4); Red Cell Distribution Width 12.1 % (11.5-14.5); White Blood Count 4.4 K/mm3 (4.5-10.0)
[2024-05-23 19:49] LABS: Alanine Aminotransferase 18 U/L (6-35); Albumin Level 4.3 g/dL (3.5-5.1); Alkaline Phosphatase 55 U/L (38-126); Anion Gap 10 mmol/L (4-12); Aspartate Amino Transferase 24 U/L (14-36); Bilirubin,Total 0.4 mg/dL (0.2-1.3); Blood Urea Nitrogen 8 mg/dL (7-17); CRP < 0.5 mg/dL (<1.0); Calcium 9.2 mg/dL (8.4-10.2); Carbon Dioxide 25 mmol/L (22-30); Chloride 102 mmol/L (98-107); Estimated Glomerular Filt Rate > 60; Glucose 94 mg/dL (65-110); Potassium 3.7 mmol/L (3.4-5.0); Sodium 137 mmol/L (137-145)
[2024-05-23 20:03] LABS: Erythrocyte Sedimentation Rate 22 mm/hr (0-20)
[2024-05-26 02:37] LABS: Immunoglobulin A 236 mg/dL (47-310); TTG IGA AB <1.0 U/mL
== END 2024-05-23 14:48 | disposition home or self-care (01) ==
LOC: ANHGOSHLAB 14:48
PROVIDERS: PCP Nurse Practitioner Family; Visit Provider Nurse Practitioner Family
DX: K90.0 Celiac disease (principal)
CPT/HCPCS: 36415; 80053; 82784; 85027; 85652; 86140; 86364

== ENCOUNTER 2024-05-25 16:15 | Outpatient (CLI) | payer OTHER, SELFPAY ==
--- OUTSIDE RECORDS SUMMARY | 2024-05-25 16:19 | XMS_ITS | Clinical Summary ---
Author Organization [facility] Address [address] [place] [address] Care Team Providers Care Diversified Crops Supervisor Name Role Phone Sarah Case [facility] Primary Care Provider [phone] Allergies Active Allergy Reactions Criticality Noted Date [...] Team Description 03/13/2024 Travel 03/12/2024 12:28 PM MANAGER GROUP HOME - 03/14/2024 12:00 PM MANAGER GROUP HOME Emergency [facility] Emergency Room [address] [place] [address] Ilia Alfredo MD Scarbrough, Maria Louisa, MD Smith, MD Goyo Mejia, Emmy Valverde MD Suicidal Ideation Discharge Disposition: [facility] 03/12/2024 Travel 03/03/2024 6:20 PM MANAGER GROUP HOME - 03/04/2024 1:32 AM MANAGER GROUP HOME Emergency [facility] Emergency Room [address] [place] [address] Brigette Dunn MD Scarbrough, Emerald Lua MD [...] Comments Blood Pressure 107/62 03/14/2024 8:35 AM MANAGER GROUP HOME Pulse 78 03/14/2024 8:35 AM MANAGER GROUP HOME Temperature 36.7 C (98 F) 03/14/2024 8:35 AM MANAGER GROUP HOME Respiratory Rate 16 03/14/2024 8:35 AM MANAGER GROUP HOME Oxygen Saturation 100% 03/14/2024 8:35 AM MANAGER GROUP HOME Inhaled Oxygen Concentration - - Weight 73.9 kg (163 lb) 03/12/2024 12:36 PM MANAGER GROUP HOME Height 152.4 cm (5') 03/12/2024 12:36 PM MANAGER GROUP HOME Body Mass Index 31.83 03/12/2024 12:36 PM MANAGER GROUP HOME Plan of Treatment Health Maintenance Due Date [...] Comments ELECTROCARDIOGRAM REPORT Routine 025 5:19 PM MANAGER GROUP HOME ECG 12-LEAD Routine 03/12/2024 2:22 PM MANAGER GROUP HOME CORONAVIRUS (COVID 19) STAT 1:03 PM MANAGER GROUP HOME CBC W/DIFF AUTOMATED STAT 03/12/2024 1:03 PM MANAGER GROUP HOME COMPREHENSIVE METABOLIC PANEL STAT 03/12/2024 1:03 PM MANAGER GROUP HOME ETHANOL STAT 03/12/2024 1:03 PM MANAGER GROUP HOME TEST URINE STAT 03/12/2024 1:03 PM MANAGER GROUP HOME DRUG SCREEN RAPID STAT 03/12/2024 1:0 3 PM MANAGER GROUP HOME HC URINALYSIS AUTO W/O MICRO STAT 03/12/2024 1:03 PM MANAGER GROUP HOME DRUG SCREEN RAPID STAT 03/03/2024 9:1 4 PM MANAGER GROUP HOME HC URINALYSIS AUTO W/O MICRO STAT 03/03/2024 9:14 PM MANAGER GROUP HOME CORONAVIRUS (COVID 19) STAT 6:56 PM MANAGER GROUP HOME SALICYLATE STAT 03/03/2024 6:56 PM MANAGER GROUP HOME THYROID STIM HORMONE TSH STAT 024 6:56 PM MANAGER GROUP HOME ACETAMINOPHEN STAT 03/03/2024 6:56 PM MANAGER GROUP HOME ETHANOL STAT 03/03/2024 6:56 PM MANAGER GROUP HOME LIPASE STAT 03/03/2024 6:56 PM MANAGER GROUP HOME COMPREHENSIVE METABOLIC PANEL STAT 03/03/2024 6:56 PM MANAGER GROUP HOME CBC W/DIFF AUTOMATED STAT 03/03/2024 6:56 PM MANAGER GROUP HOME ECG 12-LEAD STAT 03/03/2024 6:49 PM MANAGER GROUP HOME from Last 3 Months Results * EKG Reading (03/12/2024 5:19 PM MANAGER GROUP HOME) Narrative Ilia Alfredo MD - 03/12/2024 5:19 PM MANAGER GROUP HOME Ilia Alfredo MD 03/12/2024 5:20 PM EKG Reading Date/Time: 03/12/2024 5:19 PM Performed by: Ilia Alfredo MD Authorized by: Ilia Alfredo MD Comparison: compared with previous ECG Rhythm: sinus rhythm Rate: normal BPM: 60 QRS axis: normal ST Segments: ST segments normal T Waves: T waves normal Other: no other findings us Ilia Alfredo MD [place] CARDIOVASCULAR SYSTEM SER VICES Final Result * ECG 12 lead (03/12/2024 2:22 PM MANAGER GROUP HOME) Only the most recent of2 resultswithin the time period is included. 03/12/2024 2:22 PM MANAGER GROUP HOME Narrative [facility] RAD - 03/13/2024 10:[address] [facility] Test Date: 2024-03-12 Pat Name: ORTIZ BRADFORD Department: 80 Room: EXAM 404 Gender: Female Supervisor Pigment Making: : 1985 Requested By: ILIA ALFREDO Order Number: [id number] Reading MD: Torito Moore Measurements Intervals [place] Rate: 60 P: 29 TX: 127 QRS: 78 QRSD: 83 T: 64 QT: 419 QTc: 421 Interpretive Statements SINUS RHYTHM WITH SINUS ARRHYTHMIA Compared to ECG 03/03/2024 18:49:42 Sinus tachycardia no longer present [facility] Procedure Note Torito Moore MD - 03/13/2024 [facility] Test Date: 2024-03-12 Pat Name: ORTIZ [facility] Department: 80 Room: EXAM 404 Gender: Female Supervisor Pigment Making: : 1985 Requested By: ILIA ALFREDO Order Number: [id number] Reading MD: Torito Moore Measurements Intervals [place] Rate: 60 P: 29 TX: 127 QRS: 78 QRSD: 83 T: 64 QT: 419 QTc: 421 Interpretive Statements SINUS RHYTHM WITH SINUS ARRHYTHMIA Compared to ECG 03/03/2024 18:49:42 Sinus tachycardia no longer present [facility]ER [facility] us Ilia Alfredo MD ECG ORDERABLES Final Result [facility] * CORONAVIRUS (COVID-19) MOLECULAR (03/12/2024 1:03 PM MANAGER GROUP HOME) Only the most recent of2 resultswithin the time period is included. CORONAVIRUS SARS COV 2 RNA NEGATIVE NEGATIVE 03/12/2024 1:30 PM MANAGER GROUP HOME [facility] Comment: NEGATIVE RESULTS DO NOT [...] SARS-COV-2. SPECIMEN TYPE NASAL 03/12/2024 1:09 PM MANAGER GROUP HOME [facility] NASOPHARYNGEAL SWAB / Unknown 03/12/2024 1:03 PM MANAGER GROUP HOME us Ilia Alfredo MD MICROBIOLOGY - GENERAL ORDER SWATI Final Result [facility] [address] [place] [address], [place] [phone] * (ABNORMAL) DRUG SCREEN RAPID (03/12/2024 1:03 PM MANAGER GROUP HOME) Only the most recent of2 resultswithin the time period is included. [facility] AMPHETAMINE SCREEN (U) NEGATIVE NEGATIVE 03/12/2024 1:38 PM MANAGER GROUP HOME [facility] BARBITURATES SCREEN (U) NEGATIVE NEGATIVE 03/12/2024 1:38 PM MANAGER GROUP HOME [facility] BENZODIAZEPINES SCREEN (U) NEGATIVE NEGATIVE 03/12/2024 1:38 PM MANAGER GROUP HOME [facility] BUPRENORPHINE SCREEN (U) NEGATIVE NEGATIVE 03/12/2024 1:38 PM MANAGER GROUP HOME [facility] COCAINE METABOLITES (U) NEGATIVE NEGATIVE 03/12/2024 1:38 PM MANAGER GROUP HOME [facility] METHAMPHETAMINE (U) NEGATIVE NEGATIVE 03/12/2024 1:38 PM MANAGER GROUP HOME [facility] METHADONE (U) NEGATIVE NEGATIVE 03/12/2024 1:38 PM [facility] OPIATE SCREEN (U) NEGATIVE NEGATIVE 025 1:38 PM [facility] OXYCODONE SCREEN (U) NEGATIVE NEGATIVE 03/12/2024 1:38 PM [facility] PHENCYCLIDINE PCP (U) NEGATIVE NEGATIVE 03/12/2024 1:38 PM [facility] CANNABINOIDS SCREEN (U) POSITIVE(A) NEGATIVE 03/12/2024 1:38 PM [facility] TRICYCLIC ANTIDEPRESSANT SCREEN (U) NEGATIVE NEGATIVE 03/12/2024 1:38 PM [facility] Comment: NOTE: RESULTS OF THIS [...] NG/ML U PH 6 03/12/2024 1:38 PM [facility] URINE SPECIMEN / Unknown 03/12/2024 1:03 PM MANAGER GROUP HOME us Ilia Alfredo MD URINE ORDERABLES Final Resul t [facility] [address] [place] [address], [place] [phone] * (ABNORMAL) URINALYSIS (03/12/2024 1:03 PM MANAGER GROUP HOME) Only the most recent of2 resultswithin the time period is included. COLOR (U) LIGHT YELLOW 03/12/2024 1:40 PM [facility] TRANSPARENCY CLEAR 03/12/2024 1:40 PM [facility] SPECIFIC GRAVITY (U) 1.010 1.002 - 1.030 03/12/2024 1:40 PM [facility] U PH 6.0 4.5 - 8.0 03/12/2024 1:40 PM [facility] LEUKOCYTES (U) NEGATIVE NEGATIVE 03/12/2024 1:40 PM [facility] NITRITES NEGATIVE NEGATIVE 03/12/2024 1:40 PM [facility] PROTEIN RANDOM (U) 1+(A) NEGATIVE 03/12/2024 1:40 PM [facility] GLUCOSE (U) NEGATIVE NEGATIVE 03/12/2024 1:40 PM [facility] KETONES MG/DL (U) NEGATIVE NEGATIVE 03/12/2024 1:40 PM [facility] UROBILINOGEN NORMAL NORMAL EU/DL 03/12/2024 1:40 PM [facility] BILIRUBIN (U) NEGATIVE NEGATIVE 03/12/2024 1:40 PM [facility] BLOOD (U) NEGATIVE NEGATIVE 03/12/2024 1:40 PM [facility] WBC/HPF 0-5 /HPF 03/12/2024 1:40 PM [facility] RBC/HPF 0-2 /HPF 03/12/2024 1:40 PM [facility] EPI/HPF 0-5 /HPF 03/12/2024 1:40 PM [facility] BACTERIA (U) TRACE /HPF 03/12/2024 1:40 PM [facility] URINE SPECIMEN OBTAINED BY CLEAN CATCH PROCEDURE / Unknown 03/12/2024 1:03 PM MANAGER GROUP HOME us Ilia Alfredo MD URINE ORDERABLES Final Resul t Performing Organization Address City/[facility]/ZIP Co de Phone Number [facility] [address] [place] [address], [place] [phone] * TEST URINE (03/12/2024 1:03 PM MANAGER GROUP HOME) URINE HCG TEST NEGATIVE NEGATIVE 03/12/2024 1:25 PM MANAGER GROUP HOME [facility] Comment: VERY DILUTE URINE SPECIMENS MAY NOT CONTAIN PLANER FEEDER LEVELS OF HCG. IF IS STILL SUSPECTED, A SERUM HCG TEST IS RECOMMENDED. URINE SPECIMEN FROM URETHRA / Unknown 03/12/2024 1:03 PM MANAGER GROUP HOME us Ilia Alfredo MD URINE ORDERABLES Final Resul t Performing Organization Address [facility] Co de Phone Number [facility] [address] [place] [address], [place] [phone] * (ABNORMAL) COMPREHENSIVE METABOLIC PANEL (03/12/2024 1:03 PM MANAGER GROUP HOME) Only the most recent of2 resultswithin the time period is included. GLUCOSE 100(H) 70 - 99 MG/DL 03/12/2024 1:32 PM MANAGER GROUP HOME [facility] BUN 9 7 - 18 MG/DL 03/12/2024 1:32 PM [facility] CREATININE S/P/B 0.99 0.55 - 1.02 MG/DL 03/12/2024 1:32 PM [facility] SODIUM S/P/B 137 136 - 145 MMOL/L 03/12/2024 1:32 PM [facility] POTASSIUM S/P/B 3.5 3.5 - 5.1 MMOL/L 03/12/2024 1:32 PM [facility] CHLORIDE S/P/B 99(L) 100 - 108 MMOL/L 03/12/2024 1:32 PM [facility] CO2 24.8 21 - 32 MMOL/L 03/12/2024 1:32 PM [facility] CALCIUM S/P/B 8.9 8.5 - 10.1 MG/DL 03/12/2024 1:32 PM [facility] BILIRUBIN TOTAL S/P/B 1.0 0.2 - 1.2 MG/DL 03/12/2024 1:32 PM [facility] Comment: THIS ASSAY IS NOT RECOMMENDED FOR PATIENTS UNDERGOING TREATMENT WITH ELTROMBOPAG DUE TO THE POTENTIAL FOR FALSELY ELEVATED RESULTS. TOTAL PROTEIN S/P/B 8.1 6.4 - 8.2 G/DL 03/12/2024 1:32 PM [facility] ALBUMIN S/P/B 4.1 3.4 - 5.0 G/DL 03/12/2024 1:32 PM [facility] AST 14(L) 15 - 37 U/L 03/12/2024 1:32 PM [facility] ALT 17 14 - 55 U/L 03/12/2024 1:32 PM [facility] ALKALINE PHOSPHATASE S/P/B 59 50 - 136 U/L 03/12/2024 1:32 PM [facility] ANION GAP 13.2 5 - 15 MMOL/L 03/12/2024 1:32 PM [facility] BUN CREATININE RATIO 9.1 6 - 26 03/12/2024 1:32 PM [facility] A/G RATIO 1.0 1.0 - 2.0 RATIO 03/12/2024 1:32 PM [facility] GFR ESTIMATE 74(L) >90 ML/MIN/1.7 3 M2 03/12/2024 1:32 PM MANAGER GROUP HOME [facility] Comment: NOTE: eGFR is not calculated for patients <18 years of age. This is an estimated GFR calculation using the new CKD EPI creatinine equation without race and so does not require a correction factor for race. This estimated GFR should not be used for calculating drug doses. 03/12/2024 1:03 PM MANAGER GROUP HOME us Ilia Alfredo MD LABORATORY Final Result [facility] [address] [place] [address], [place] [phone] * (ABNORMAL) CBC W/DIFF AUTOMATED (03/12/2024 1:03 PM MANAGER GROUP HOME) Only the most recent of2 resultswithin the time period is included. WBC 3.35(L) 4.50 - 11.00 x10'3/uL 03/12/2024 1:16 PM [facility] RBC 4.52 4.20 - 5.40 x10'6/uL 03/12/2024 1:16 PM [facility] HGB 14.7 12.0 - 16.0 G/DL 03/12/2024 1:16 PM [facility] HCT 42.4 38.0 - 48.0 % 03/12/2024 1:16 PM [facility] MCV 93.8 81.0 - 99.0 FL 03/12/2024 1:16 PM [facility] MCH 32.5(H) 27.0 - 31.0 PG 03/12/2024 1:16 PM [facility] MCHC 34.7 32.0 - 36.0 G/DL 03/12/2024 1:16 PM [facility] RDW 11.5 11.5 - 14.5 % 03/12/2024 1:16 PM [facility] PLT 346 130 - 400 x10'3/uL 03/12/2024 1:16 PM [facility] MPV 9.4 9.3 - 12.2 FL 03/12/2024 1:16 PM [facility] CBC COMMENT AUTOMATED RBC MORPHOLOGY AND PLATELET EVALUATION NORMAL 03/12/2024 1:16 PM [facility] NEUTROPHILS % 58.2 % 03/12/2024 1:16 PM [facility] LYMPHOCYTES % 31.6 % 03/12/2024 1:16 PM [facility] MONOCYTES % 8.1 % 03/12/2024 1:16 PM [facility] EOSINOPHILS 0.9 % 03/12/2024 1:16 PM [facility] BASOPHILS 0.9 % 03/12/2024 1:16 PM [facility] IMMATURE GRANS % 0.3 % 03/12/19 25 1:16 PM [facility] NRBC % 0.0 % 03/12/2024 1:16 PM [facility] ABS. NEUTROPHILS TOTAL 1.95 1.80 - 7.70 x10'3/uL 03/12/2024 1:16 PM [facility] ABS. LYMPHOCYTES 1.06 1.00 - 4.80 x10'3/uL 03/12/2024 1:16 PM [facility] ABS. MONOCYTES 0.27 0.24 - 0.86 x10'3/uL 03/12/2024 1:16 PM [facility] ABS. EOSINOPHILS 0.03(L) 0.04 - 0.36 x10'3/uL 03/12/2024 1:16 PM [facility] ABS. BASOPHILS 0.03 0.01 - 0.08 x10'3/uL 03/12/2024 1:16 PM [facility]NA[facility] GROUP HOME [facility] ABS. IMMATURE GRANULOCYTES 0.01 0.00 - 0.49 x10'3/uL 03/12/2024 1:16 PM MANAGER GROUP HOME [facility] ABS. NUCLEATED RBC'S 0.00 0.00 - 0.01 x10'3/uL 03/12/2024 1:16 PM MANAGER GROUP HOME [facility] 03/12/2024 1:03 PM MANAGER GROUP HOME us Ilia Alfredo MD LABORATORY Final Result [facility] [address] [place] [address], [place] [phone] * ETHANOL (03/12/2024 1:03 PM MANAGER GROUP HOME) Only the most recent of2 resultswithin the time period is included. ALCOHOL S/P/B <0.003 <0.003 G/DL 03/12/2024 1:46 PM MANAGER GROUP HOME [facility] 03/12/2024 1:03 PM MANAGER GROUP HOME us Ilia Alfredo MD LABORATORY Final Result Performing Organization Address City/[facility]/ZIP Co de Phone Number [facility] [address] [place] [address], [place] [phone] * THYROID STIM HORMONE, TSH (03/03/2024 6:56 PM MANAGER GROUP HOME) TSH 1.388 0.358 - 3.74 uIU/ML 03/03/2024 8:25 PM MANAGER GROUP HOME [facility] Comment: HIGH DOSES OF BIOTIN MAY INTERFERE WITH THIS TEST RESULT. CORRELATION TO CLINICAL HISTORY AND PRESENTATION RECOMMENDED. 03/03/2024 6:56 PM MANAGER GROUP HOME us Brigette Dunn MD LABORATORY Final Result Performing Organization Address [facility]/ZIP Co de Phone Number [facility] [address] [place] [address], [place] [phone] * LIPASE (03/03/2024 6:56 PM MANAGER GROUP HOME) LIPASE 35 16 - 77 UNITS/L 03/03/2024 8:25 PM MANAGER GROUP HOME [facility] 03/03/2024 6:56 PM MANAGER GROUP HOME Brigette Dunn MD LABORATORY Final Result Performing Organization Address [facility] Co de Phone Number [facility] [address] [place] [address], [place] [phone] * SALICYLATE (03/03/2024 6:56 PM MANAGER GROUP HOME) SALICYLATES <0.2 MG/DL 03/03/2024 8:01 PM MANA[facility] HOME [facility] Comment: THERAPEUTIC: 2.8-20.0 Toxic Level: >=30 03/03/2024 6:56 PM MANAGER GROUP HOME Brigette Dunn MD LABORATORY Final Result Performing Organization Address [facility] Co de Phone Number [facility] [address] [place] [address], [place] [phone] * (ABNORMAL) ACETAMINOPHEN (03/03/2024 6:56 PM MANAGER GROUP HOME) ACETAMINOPHEN S/P/B <2.0(L) 10 - 30 MCG/ML 03/03/2024 8:25 PM MANA[facility] GROUP HOME [facility] Comment: THERAPEUTIC: 10-30 TOXIC: >200 03/03/2024 6:56 PM MANAGER GROUP HOME us Brigette Dunn MD LABORATORY Final Result [facility] [address] [place] [address], [place] [phone] from Last 3 Months Insurance [employer] Advance Directives Documents on File Type Date Recorded Patient Network Security Administrator Expl anation Advance Directives and Living Will [...] 10/20/2010 12:00 AM ADVANCED DIRECTIVES Care Teams Diversified Crops Supervisor Relationship Specialty Start Date End Date Sarah Case FNP PCP - General Nurse Practitioner Family 08/04/23
--- OUTSIDE RECORDS SUMMARY | 2024-05-25 16:20 | XMS_ITS | Encounter Summary ---
Author Organization [facility] Address [address] [place] [address] Care Team Providers Care Termite Renewal Inspector Name Role Phone Unavailable Primary Care Provider Unavailabl e Encounter Details Date Type Department Care Team (Late st Contact Info) Description 05/24/2024 External Device Data [facility] Provider, Abstract NO ADDRESS ON FILE Social History Tobacco Use Types Packs/Day Years [...]
--- OUTSIDE RECORDS SUMMARY | 2024-05-25 16:20 | XMS_ITS | Clinical Summary ---
[facility] Address [address] [place] [address] Care Team Providers Care Stock Patch Sawyer Name Role Phone Unavailable Primary Care Provider Unavailabl e Allergies Active Allergy Reactions Criticality Noted Date Comments Macrolide Antibiotics Nausea and Vomiting Low 08/03 Oxycodone Rash Low 08/04/2023 Sulfa (Sulfonamide Antibiotics) Photosensitivity,Rash [facility] 03/10/2019 Medications omeprazole (PriLOSEC) 20 mg Capsule, [...] Encounters Date Type Department Care Team Description 05/24/2024 External Device Data [facility] ABSTRACTION Provider, Abstract 05/24/2024 External Device Data [facility] ABSTRACTION Provider, Abstract 05/13/2024 External Device Data [facility] ABSTRACTION Provider, [...] of 3 - 19+ 3-dose series) 08/23/2003 PAP SMEAR 2014 INFLUENZA VACCINE (#1) 2023 0, 12/03/2018 COVID-19 Vaccine (2 - season) 2023 02/15/2021 HPV VACCINES Aged Out No longer eligi ble based on patient's age to complete this topic Insurance [facility] CHOICE [id number]
--- OUTSIDE RECORDS SUMMARY | 2024-05-25 16:20 | XMS_ITS | Encounter Summary ---
Author Organization [facility] Address [address] [place] [address] Care Team Providers Care Entry Level Truck Driver Name Role Phone Unavailable Primary Care Provider Unavailabl e Encounter Details Date Type Department Care Team (Late st Contact Info) Description 08/05/2023 Abstract [facility] - [place] [address] [facility] [address] [place] [address] Deric Vigil MD [address] [facility] [address] [place] [address] Social History Tobacco Use Types [...]
--- OUTSIDE RECORDS SUMMARY | 2024-05-25 16:20 | XMS_ITS | Encounter Summary ---
Author Organization [facility] Address [address] [place] [address] Care Team Providers Care Meat Carrier Name Role Phone Unavailable Primary Care Provider [...]
[2024-05-25 17:30] LABS: Toxigenic C. Diff NEGATIVE (NEGATIVE)
[2024-05-30 10:18] LABS: Fecal Fat, Ql Normal (Normal)
== END 2024-05-25 16:16 | disposition home or self-care (01) ==
LOC: ANHLAB 16:16
PROVIDERS: PCP Nurse Practitioner Family; Visit Provider Nurse Practitioner Family
DX: R19.7 Diarrhea, unspecified (principal)
CPT/HCPCS: 82653; 82705; 83993; 87045; 87177; 87209; 87269; 87427; 87449; 87493

== ENCOUNTER 2024-06-08 12:27 | Outpatient (CLI) | payer OTHER, SELFPAY ==
--- NOTE | ~2024-06-08 | CT_ITS ---
Non-contrast CT scan of the Pelvis Clinical indication: Sacroiliitis Technique: 2.5 mm axial scans were obtained through the pelvis without intravenous or oral contrast. Dose reduction technique was used on this scan by utilizing automated exposure control and iterative reconstruction technique. The dose-length product (DLP) was 499.61 mGy-cm. COMPARISON: 11/08/2023 Findings: SI joints are intact, without significant degenerative change. No erosive change or scleros is. There is orthopedic bolt at the posterior aspect of the left SI joint, stable from prior exam. Bi lateral hip joints are intact. No degenerative change or erosive change. No fracture evident. Visual is bowel loops are unremarkable. Urinary bladder unremarkable. No pelvic mass seen. No ascites . No lymphadenopathy or soft tissue mass seen. Impression: No evidence of sacroiliitis. No evidence for inflammatory or degenerative arthropathy. Stable orthope dic bolt at the posterior aspect of the left SI joint. Reviewed, dictated and finalized at [facility]. Impression: No evidence of sacroiliitis. No evidence for inflammatory or degenerative arthr opathy. Stable orthopedic bolt at the posterior aspect of the left SI joint.
== END 2024-06-08 12:28 | disposition home or self-care (01) ==
LOC: GOSHIMG 12:29
PROVIDERS: PCP Neurological Surgery; Visit Provider Neurological Surgery
DX: M46.1 Sacroiliitis, not elsewhere classified (principal); Z96.698 Presence of other orthopedic joint implants
CPT/HCPCS: 72192

== ENCOUNTER 2024-08-03 11:26 | Outpatient (CLI) | payer OTHER, SELFPAY ==
--- OUTSIDE RECORDS SUMMARY | 2024-08-03 11:29 | XMS_ITS | Data Portability ---
Author Organization [place] - [facility] Address [address] [place] [address] Assessment No assessment recorded. Plan of Treatment [...] PF, 30 mcg/0.3 mL dose 02/15/2021 completed [facility] [address] [place], [address], [place] - [facility] 02/17/2021 18:25:11 Past Encounters Encounter ID Performer Location Encounter Start Date Encounter Closed Date Diagnosis/Indication Diagnosis SNOMED-CT Code Diagnosis ICD10 Code Diagnosis Note [id number] Casimiro Soriano DO [facility] [address] [place] [address] 02/15/2021 19:03:13 02/15/2021 21:29:27 Administration of SARS-CoV-2 antigen vaccine [id number] Patient consents to the Pfizer COVID vaccine and completes the pre-vaccin ation checklist, all answers are negative. Immunizati on given to pt. without difficulty . Pt. tolerated well. Patient observed for 15 minutes post vaccinatio n and experience d [...] ID Guarantor Name 02/15/2021 1 [employer] [facility] (PPO) [id number] Shadi Sylvester [id number] Della Sylvester OBGyn Episode No OBEpisode recorded.
--- OUTSIDE RECORDS SUMMARY | 2024-08-03 11:29 | XMS_ITS ---
Author Organization [facility] [employer] Address [address] [facility] [address] [place] [address] Care Team Providers Care Sales And Distribution Clerk Name Role Phone Dayami Castillo Primary Care Provider Unavailab Magdalena Martinez Unavailable [phone] Vickie Adams Unavailable [phone] REASON FOR VISIT Pt had a family emergency, did not have time to leave a message Social History Sex Assigned At : Social History Observation Description Sex Assigned At Female Encounters Encounter Location Date Provider Diagnosis [facility] [address] [facility] [address] [place] [address] 05/24/2024 Vickie Adams Plan Of Treatment Next Appt Details Provider Name:Magdalena espinoza, 08/07/2024 01:00:00 PM, [address], [facility] [address], [place], [address], Progress Notes * ORTIZ BRADFORD LDOB: (38 yo F)Acc No.[id number]:05/24/2024 Patient: Kuldeep ELAMORTIZ SHOEMAKER Provider: Brian ADAMS LCSW :1985 A ge:38 Y S ex:Female Date:05/24/2024 Address:[address] [id number] Pcp:Dayami COBB Data: * Chief Complaints: * 1 . Pt had a family emergency, did not have time to leave a message. * Medical History: * Vitals: Assessment: Plan: * Treatment: * Billing Information: * Visit Code: * Procedure Codes: * Electronic signature of Vickie Adams LCSW on 08/03/2024 at 11:29 AM CDT Sign off status: Pending Signatures: No Ad Hoc Signature Added * Provider: Brian ADAMS LCSW Date: 0 05/24/2024 Generated for Estrella ballard/Afua/Mejia on: 0 08/03/2024 11:29 AM CDT
--- OUTSIDE RECORDS SUMMARY | 2024-08-03 11:30 | XMS_ITS | Encounter Summary ---
Author Organization [facility] Address [address] [place] [address] Care Team Providers Care Resident Care Supervisor Name Role Phone Unavailable Primary Care Provider Unavailabl e Encounter Details Date Type Department Care Team (Late st Contact Info) Description 08/05/2023 Abstract [facility] Oncology and Hematology - [place] [address] [facility] [address] [place] [address] Deric Vigil MD [address] [place] [address] Social History Tobacco Use Types [...]
--- OUTSIDE RECORDS SUMMARY | 2024-08-03 11:30 | XMS_ITS | Patient Health Record ---
Author Organization [facility] Address [address] [facility] [address] [place] [address] Care Team Providers Care Farmworker Poultry Name Role Phone Dayami Castillo Primary Care Provider Unavailab Magdalena Martinez Unavailable [phone] Vickie Patino Unavailable [phone] Eliana Tabor Unavailable [phone] Mitzi Braswell Unavailable [phone] Allergies Allergen (clinical drug ingredient) Drug/Non Drug Allergy documented on EMR Reaction Allergy Type Onset Date Status Substance with sulfonamide structure and antibacterial mechanism of action (substance) SULFA (SULFONAMIDE ANTIBIOTICS) (uncoded) Unknown Allergy 05/24/2023 Active nitrofurantoin, macrocrystals / nitrofurantoin, monohydrate Macrobid Unknown Drug Allergy 05/24/2023 Active nickel Nickel Unknown Allergy 05/24/2023 Active Reason For Referral No Information Medications Medication SIG (Take, Route, Frequency, Duration) Notes Start Date End Date Status buPROPion HCl ER (XL) 300 MG 1 tablet in the morning Oral Once a day for 90 days total dose 450mg Active buPROPion HCl ER (XL) 150 MG 1 tablet in the morning Orally Once a day for 90 days total dose 450mg Active Rexulti 4 mg 1 tablet Oral daily for 21 days 21 days per insurance requirement Active Venlafaxine HCl ER 75 MG 1 capsule Oral Once a day for 90 days Active Topiramate 25 MG 1 tablet Oral Once a day for 90 days Active Omeprazole 40 MG Oral 05/24/2023 Ac tive Amitriptyline HCl 75 MG TAKE 1 TABLET BY MOUTH EVERY NIGHT AT BEDTIME Oral for 30 Days Active Lidocaine 5% External 05/24/2023 Active Cyclobenzaprine HCl 10 MG Oral 05/24/2023 Active Ondansetron 4 MG Oral 05/24/2023 Ac tive Social History Tobacco Use: Social History Observation Description Date Details (start date - stop date) Current Smoker NA - NA Sex Assigned At : Social History Observation Description Sex Assigned At Female Tobacco Control (Standard) Question Answer Notes Tobacco use: Current smoker Problems Problem Type SNOMED Code ICD Code Onset Dates Problem Status W/U Status Risk Notes Problem Cannabis dependence (45797297) Cannabis dependence, uncomplicated (F12.20) 05/24/19 Active confirmed Problem Mild recurrent major depression (71765597) Major depressive disorder, recurrent, mild (F33.0) 05/24/19 Active confirmed Problem 54259303 Major depressive disorder, recurrent severe without psychotic features (F33.2) Active confirmed Problem Generalized anxiety disorder (04245725) Generalized anxiety disorder (F41.1) 05/24/19 Active confirmed Problem Post-traumatic stress disorder (49699835) Post-traumatic stress disorder, unspecified (F43.10) Active confirmed Problem Insomnia disorder related to another mental disorder (38002388) Insomnia due to other mental disorder (F51.05) 05/24/19 Active confirmed Problem Attention deficit hyperactivity disorder, combined type (59950026) Attention-deficit hyperactivity disorder, combined type (F90.2) 05/24/19 Active confirmed Problem Chronic post-traumatic stress disorder (299160742) Chronic posttraumatic stress disorder (F43.12) Active confirmed Vital Signs Heart Rate 103 /min 05/23/2024 166 Height-cm 152.40 cm 05/23/2024 166 Blood pressure diastolic 84 mm Hg 05/23/2024 166 Weight-kg 75.3 kg 05/23/2024 166 Height 60.00 in 05/23/2024 166 Blood pressure systolic 122 mm Hg 05/23/2024 166 Weight 166 lbs 05/23/2024 166 BMI 32.42 kg/m2 05/23/2024 166 Encounters Encounter Location Date Provider Diagnosis [facility] [facility] [address] [address] 11/17/2023 Eliana Tabor Major depressive disorder, recurrent, mild F33.0 ; Chronic posttraumatic stress disorder F43.12 ; Insomnia due to other mental disorder F51.05 ; Generalized anxiety disorder F41.1 ; Attention-deficit hyperactivity disorder, combined type F90.2 and Cannabis dependence, uncomplicated F12.20 [facility], [facility] [address] [place] [address] 01/17/2024 Mitzi Braswell [facility], [facility] [address] [place] [address] 04/19/2024 Magdalena Caldera Major depressive disorder, recurrent severe without psychotic features F33.2 ; Generalized anxiety disorder F41.1 ; Post-traumatic stress disorder, unspecified F43.10 and Attention-deficit hyperactivity disorder, combined type F90.2 [facility], [facility] [address] [place] [address] 05/23/2024 Magdalena Caldera Encounter for screening for depression Z13.31 ; Nicotine use Z72.0 ; Encounter for screening for cardiovascular disorders Z13.6 ; Major depressive disorder, recurrent severe without psychotic features F33.2 ; Generalized anxiety disorder F41.1 ; Post-traumatic stress disorder, unspecified F43.10 and Attention-deficit hyperactivity disorder, combined type F90.2 [facility] [address] [place] [address] 07/11/2024 Magdalena Caldera [facility], [facility] [address] [place] [address] 09/01/2023 Eliana Tabor [facility], [facility] [address] [place] [address] 09/01/2023 Eliana Tabor [facility], [facility] [address] [place] [address] 04/20/2024 Magdalenacallie Caldera Attention-deficit hyperactivity disorder, combined type F90.2 [facility], [facility] [address] [place] [address] 04/26/2024 Magdalenacallie Caldera Attention-deficit hyperactivity disorder, combined type F90.2 [facility], [facility] [address] [place] [address] 05/02/2024 Magdalenacallie Caldera Attention-deficit hyperactivity disorder, combined type F90.2 [facility], [facility] [address] [place] [address] 05/22/2024 Magdalena Caldera Generalized anxiety disorder F41.1 [facility] [place] [address] [facility] [address] [place] [address] 05/24/2024 [facility] [place] [address] [facility] [address] [place] [address] 04/19/2024 Magdalena Caldera [facility] [place] [address] [facility] [address] [place] [address] 04/19/2024 Magdalena Caldera Assessments Encounter Date Diagnosis (ICD Code) Assessment Notes Treatment Notes Treatment Clinical Notes Section Notes 11/17/2023 Major depressive disorder, recurrent, mild (ICD-10 - F33.0) increase bupropion XL to 450mg qam cont venlafaxine ER 75mg daily (sexual side effects at higher dose)cont rexulti 4mg daily - insurance, requiring to SEND 21 pill refills cont therapy mood and anxiety stable ADHD complaints: no stimulant with cannabis per policy, recommend decrease cannabis; already has 2 NE-impacting antidepressants, though venlafaxine low dose, caution adding atomoxetine or consider increase NDRI and monitor, BP is normal, review r/b/se. has not continued therapy has surgery Dec 15, will have to use walker for some time f/u in 2 months, earlier if concerns Note:-ADHD testing supports combined, though some interesting notes in validity section (see HPI and result in chart), states did her best/didn't have trouble understanding the directions. Also consider cannabis, topamax, gabapentin possible impact on cognitive/attent ion or may be just severe ADHD.-office policy no stimulant/contro lled substance with cannabis use, discuss options for non stimulant. though already on NDRI and SNRI, so if add NRI (all impact norepinephrine), would likely try decrease SNRI if try (and she has GI and other sx if misses). Or consider decrease topamax again. 11/17/2023 Chronic posttraumatic stress disorder (ICD-10 - F43.12) cont topiramate 25mg daily 04/19/2024 Major depressive disorder, recurrent severe without psychotic features (ICD-10 - F33.2) 04/19/2024 Generalized anxiety disorder (ICD-10 - F41.1) 05/22/2024 Generalized anxiety disorder (ICD-10 - F41.1) 04/20/2024 Attention-deficit hyperactivity disorder, combined type (ICD-10 - F90.2) 04/26/2024 Attention-deficit hyperactivity disorder, combined type (ICD-10 - F90.2) 05/23/2024 Encounter for screening for depression (ICD-10 - Z13.31) 05/23/2024 Nicotine use (ICD-10 - Z72.0) 05/02/2024 Attention-deficit hyperactivity disorder, combined type (ICD-10 - F90.2) Electronic Prior Authorization was requested for Methylphenidate HCl ER (OSM) 18 MG Tablet Extended Release. Provider can order medication once approval received. 04/19/2024 Post-traumatic stress disorder, unspecified (ICD-10 - F43.10) 11/17/2023 Insomnia due to other mental disorder (ICD-10 - F51.05) cont trazodone 150mg takes 1/2 tab qhs prn insomnia practice good sleep hygiene 11/17/2023 Generalized anxiety disorder (ICD-10 - F41.1) manageablemeds, therapy as above 04/19/2024 Attention-deficit hyperactivity disorder, combined type (ICD-10 - F90.2) 05/23/2024 Encounter for screening for cardiovascular disorders (ICD-10 - Z13.6) 11/17/2023 Attention-deficit hyperactivity disorder, combined type (ICD-10 - F90.2) increase NDRI decrease cannabis 05/23/2024 Major depressive disorder, recurrent severe without psychotic features (ICD-10 - F33.2) 05/23/2024 Generalized anxiety disorder (ICD-10 - F41.1) 11/17/2023 Cannabis dependence, uncomplicated (ICD-10 - F12.20) dailyusing for pain, anxiety, etc consider decrease/stop cannabis use as it may be negatively impacting mood, motivation, anxiety, sleep, focus/concentratio n/memory (vigilance, elasticity, processing and attention); can also contribute to development of psychosis. 05/23/2024 Post-traumatic stress disorder, unspecified (ICD-10 - F43.10) 05/23/2024 Attention-deficit hyperactivity disorder, combined type (ICD-10 - F90.2) 04/19/2024 Other Continue current medications at current doses; Start Concerta 18mg daily for ADHD management Patient educated on all medications including potential benefits, side effects, risks. Educated on proper dosing schedule and importance of compliance. [place] report checked and consistent with prescription history, no controlled substance prescriptions from other providers. Depression persistant and treatment resistant, impairing functioning in daily life. Discussed treatment resistant depression options, interested in esketamine. Start PA for Spravato treatments. Discussed controlled substance policy, will obtain UDT next apt. -Assessment and treatment plan reviewed with patient. -Compliance with treatment plan importance discussed. -Discussed the risks/benefits of this medication -Discussed medication side effects. -Contact office if symptoms worsen. -Discussed that it can take up to 6-8 weeks to see full therapeutic effects of psychotropic medications. -Crisis prevention hotline 988. 05/23/2024 Other Discontinue Trazodone, excess daytime drowsiness could be due to in combination with amitriptyline that was started for pain, increased risk of serotonin syndrome. Increase Concerta to 27mg daily for ADHD management Patient educated on all medications including potential benefits, side effects, risks. Educated on proper dosing schedule and importance of compliance. [place] report checked and consistent with prescription history, no controlled substance prescriptions from other providers. Awaiting Esketamine PA -Assessment and treatment plan reviewed with patient. -Compliance with treatment plan importance discussed. -Discussed the risks/benefits of this medication -Discussed medication side effects. -Contact office if symptoms worsen. -Discussed that it can take up to 6-8 weeks to see full therapeutic effects of psychotropic medications. -Crisis prevention hotline 988. Plan Of Treatment Next Appt Details Provider Name:Magdalena espinoza, 08/07/2024 01:00:00 PM, [address], [address], [place], [address], Insurance Providers Payer Name Payer Address Payer Phone Subscriber Number Group Number Insured Name Patient Relationship to Insured Coverage Start Date Coverage End Date [facility] [address] [address] [place] [address] [id number] VIV PRABHAKAR Spouse - patient is the spouse of the insured Medical (General) History Medical History History ICD Code Problems: Attention deficit hyperactivit y disorder, combined type Cannabis dependence Generalized anxiety disorder Insomnia disorder related to another men earnest disorder Mild recurrent major depression Posttraumatic stress disorder , Surgical History Surgery Date(Month/Year) Sinus surgery 03/08/2004 Endometrial ablation (16047) 03/08/2010 Hysterectomy (66734) 03/08/2011 Procedure on neck (790153523) replacemen t disc 09/05/2022 Laminotomy (026063249) 11/06/2022 SI joint fusion 06/03/2023 Hospitalization History Reason Date(Month/Year) [facility] for SI 03/2024
--- OUTSIDE RECORDS SUMMARY | 2024-08-03 11:30 | XMS_ITS | Clinical Summary ---
Author Organization [facility] Address [address] [place] [address] Care Team Providers Care Switchboard Operator Receptionist Name Role Phone Unavailable Primary Care Provider Unavailabl e Allergies Active Allergy Reactions Criticality Noted Date Comments Macrolide Antibiotics Nausea and Vomiting Low 08/03 Oxycodone Rash Low 08/04/2023 Sulfa (Sulfonamide Antibiotics) Photosensitivity,Rash [facility] 03/10/2019 Medications omeprazole (PriLOSEC) 20 mg Capsule, [...] Encounters Date Type Department Care Team Description 07/27/2024 External Device Data [facility] Provider, Abstract 07/26/2024 External Device Data [facility] Provider, Abstract 07/25/2024 External Device Data [facility] Provider, Abstract 06/20/2024 External Device Data [facility] Provider, Abstract [...] of 3 - 19+ 3-dose series) 08/23/2003 INFLUENZA VACCINE (#1) 2023 0, 12/03/2018 COVID-19 Vaccine (2 season) 2023 02/15/2021 HPV VACCINES Aged Out No longer eligi ble based on patient's age to complete this topic Insurance [facility] CHOICE [id number]
--- OUTSIDE RECORDS SUMMARY | 2024-08-03 11:30 | XMS_ITS | Patient Health Record ---
Author Organization [facility] Address [address] [place] [address] Care Team Providers Care Premium Representative Name Role Phone AyanAnnaBrigette Primary Care Provider [phone] Allergies Allergen (clinical drug ingredient) Drug/Non Drug Allergy documented on EMR Reaction Allergy Type Onset Date Status Substance with sulfonamide structure and antibacterial mechanism of action (substance) SULFA ANTIBIOTICS (uncoded) severe photosensitivity Allergy Active nitrofurantoin, macrocrystals / nitrofurantoin, monohydrate MACROBID Vomitting Drug Allergy Active Reason For Referral No Information Medications Medication SIG (Take, Route, Frequency, Duration) Notes Start Date End Date Status Rexulti 4 MG 1 tablet Orally Once a day for 90 day(s) Active Lidocaine 3 % 1 application as needed Externally Twice a day for 14 days can sub cream/gel/ointment and change concentration as needed 05/25/2020 Active Meclizine HCl 25 MG 1 tablet as needed Orally Once a day prn dizzy for 30 day(s) Unknown Omeprazole 20 MG 1 capsule 30 minutes before morning meal Orally Once a day Active methylPREDNISolone 4 MG as directed Orally Active traZODone HCl 300 MG TAKE 1 TABLET BY MOUTH EVERY NIGHT for 90 days Active diazePAM 5 MG 1/2 to 1 tab po bid prn severe anxiety Active Ondansetron 4 MG 1 tablet on the tongue and allow to dissolve Orally Once a day for 30 days Active Clotrimazole 1 % apple pea sized amount to affected area twice daily Externally for 28 day(s) Unknown Clotrimazole 10 MG 1 larry Mouth/Throat Five times a day for 14 day(s) Active Desvenlafaxine Succinate ER 100 MG TAKE 1 TABLET BY MOUTH EVERY DAY for 30 Active Topiramate 25 MG TAKE 2 TABLETS BY MOUTH EVERY NIGHT AT BEDTIME for 90 Active buPROPion HCl ER (XL) 150 MG 1 tablet in the morning Orally Once a day for 30 day(s) Active Immunizations Vaccine Route Administration Date Status Comme nts Flulaval quadrivalent PFS PEDS IM Intramuscular 01/21/2020 Administered Patient tolerated well. Shannon Romo 01/21/2020 03:26:57 PM > Flulaval quadrivalent PFS PEDS IM Intramuscular 01/12/2021 Administered Patient tolerated well.Shannon Romo 01/12/2021 10:11:02 AM > Social History Alcohol Screen (Audit-C) Question Answer Notes Did you have a drink containing alcohol in the p ast year? No Points 0 Interpretation Negative Smoking Question Answer Notes How often do you smoke cigarettes? every day How many cigarettes a day do you smoke? 11-20 How soon after you wake up do you smoke your fir st cigarette? 6-30 minutes Are you interested in quitting? Not ready to charito t Section Notes: no updates see HPI see HPI Problems Problem Type SNOMED Code ICD Code Onset Dates Problem Status W/U Status Risk Notes Problem 900048810 Cannabis use, unspecified, uncomplicated (F12.90) Active confirmed Problem 07769373 Bipolar II disorder (F31.81) Active confirmed Problem Other problems related to social environment (Z60.8) Active confirmed Problem Anxiety (33707512) Anxiety (F41.9) Active confirmed Problem 365290298 Family dynamics problem (Z63.9) Active confirmed Problem 14326732 Vitamin D deficiency (E55.9) Active confirmed Problem 01196732 Dysthymia (F34.1) Active confirmed Problem Depressive disorder (disorder) (32444202) Depression, unspecified depression type (F32.9) Active confirmed Problem 31042655 Nicotine dependence due to vaping non-tobacco product (F17.200) Active confirmed Problem 06748000 Insomnia due to mental disorder (F51.05) Active confirmed Problem 593905898 Panic attacks (F41.0) Remission phase confirmed Problem 59479441 Generalized anxiety disorder (F41.1) Active confirmed Problem 469641158 Posttraumatic stress disorder, chronic/delayed onset (F43.10) Active confirmed Problem 86281782 Bipolar II disorder, most recent episode major depressive (F31.81) Active confirmed Plan Of Treatment No Information Insurance Providers Payer Name Payer Address Payer Phone Subscriber Number Group Number Insured Name Patient Relationship to Insured Coverage Start Date Coverage End Date [employer] [address] [place] [address] [id number] Della Mcclain Self - patient is the insured Medications Administered Medication Instructions Date of Administration Dosage Notes Dexamethasone 10mg 10/03/2019 10 mg Dexamethasone 10mg 10/29/2019 10 mg Patien t tolerated well.Shannon Romo 10/31/2019 05:28:28 PM > Medical (General) History Medical History History ICD Code YANDY (generalized anxiety disorder) F41.1 Chronic posttraumatic stress disorder F4 3.12 Major depression, recurrent, full remiss ion F33.42 Other problems related to social environ ment Z60.8 Cannabis use without complication F12.90 Anxiety F41.9 Insomnia, unspecified G47.00 Depression, unspecified depression type F32.9 VITAMIN D DEFICIENCY (ICD-26 8.9) (HUJ29-G23.9) DIZZINESS (ICD-780.4) (LSZ83-M30) LUMP OR MASS IN BREAST (ICD-611.72) (NPN37-G84.0) VITAMIN B12 DEFICIENCY (ICD-266.2) (WOU25-D83.8) HX OF BARIATRIC SURGERY (ICD-V45.86) (IPE56-A73.84) VITAMIN B12 DEFICIENCY (ICD-266.2) (ZOX36-Y48.8) CANDIDIASIS OF SKIN (ICD-112.3) (PZT18-P98.2) DYSURIA (ICD-788.1) (TQY53-L48.0) GENERALIZED ANXIETY DISORDER (ICD-300.02) (GQI69-Y48.1) URINARY TRACT INFECTION, ACUTE (ICD-599.0) (NMG46-B37.0) URINARY URGENCY (ICD-788.63) (DNW07-W23.15) ERUPTION OF FEMALE PERINEUM (ICD-624.8) (MGL74-Y41) VAGINAL DISCHARGE (ICD-623.5) (DXU40-V39.8) BARIATRIC SURGERY STATUS (ICD-V45.86) (FAE71-B62.84) CHRONIC POST-TRAUMATIC STRESS DISORDER (ICD-309.81) (AGC74-P20.12) DEPRESSION, MAJOR, RECURRENT, IN FULL REMISSION (ICD-296.36) (WOY03-Z75.42) SOCIAL ADJUSTMENT PROBLEM (ICD-312.20) (HGM32-H32.8) CANNABIS USE, UNSPECIFIED, UNCOMPLICATED (XUC25-A97.90) ANXIETY (ICD-300.00) (HDK44-C53.9) HX OF HYSTERECTOMY (ICD-V88.02) (LAA28-L02.710) INSOMNIA, CHRONIC (ICD-780.52) (FZY57-T55.00) DEPRESSION (ICD-311) (HTB79-Z44.9) Surgical History Surgery Date(Month/Year) 2 Csections Hysterectomy partial--2012Ba riatric 2014
[2024-08-03 20:04] LABS: Anion Gap 9 mmol/L (4-12); Blood Urea Nitrogen 9 mg/dL (7-17); Calcium 9.5 mg/dL (8.4-10.2); Carbon Dioxide 26 mmol/L (22-30); Chloride 103 mmol/L (98-107); Estimated Glomerular Filt Rate > 60; Glucose 78 mg/dL (65-110); Potassium 4.5 mmol/L (3.4-5.0); Sodium 138 mmol/L (137-145)
[2024-08-03 20:19] LABS: Basophils Percent Auto 0.9 % (0.2-1.2); Eosinophils Absolute Auto 0.1 K/mm3 (0-0.3); Eosinophils Percent Auto 2.2 % (0-4.4); Hematocrit 39.7 % (37.0-47.0); Hemoglobin 12.7 g/dL (12.0-15.0); Immature Granulocyte Absolute 0.01 K/mm3 (0.00-0.031); Immature Granulocyte Percent A 0.2 % (0-0.5); Lymphocytes Percent Auto 33.6 % (18.3-44.2); Mean Platelet Volume 9.6 fl (7.4-10.4); Monocytes Absolute Auto 0.4 K/mm3 (0.1-0.6); Monocytes Percent Auto 9.4 % (2.6-8.5); Neutrophils Absolute Auto 2.4 K/mm3 (1.3-6.7); Neutrophils Percent Auto 53.7 % (45.5-73.1); Platelet Count Result 348 k/mm3 (150-375); Red Blood Count 3.97 M/mm3 (4.2-5.4); Red Cell Distribution Width 12.2 % (11.5-14.5); White Blood Count 4.5 K/mm3 (4.5-10.0)
== END 2024-08-03 11:27 | disposition home or self-care (01) ==
LOC: ANHGOSHLAB 11:28
PROVIDERS: PCP Neurological Surgery; Visit Provider Neurological Surgery
DX: M54.16 Radiculopathy, lumbar region (principal); M46.1 Sacroiliitis, not elsewhere classified; G89.4 Chronic pain syndrome; G90.09 Other idiopathic peripheral autonomic neuropathy; M54.50 Low back pain, unspecified
CPT/HCPCS: 36415; 80048; 85025

== ENCOUNTER 2024-09-21 03:36 | Emergency (ER) | payer OTHER, SELFPAY ==
--- NOTE | ~2024-09-21 | XR_ITS ---
Portable chest x-ray Comparison: 10/12/2023 Clinical History: Chest pain Findings: Lungs are clear, without focal consolidation or pleural effusion. Cardiomediastinal silho uette is stable. Bones and soft tissues are unremarkable. Impression: Normal chest. Reviewed, dictated and finalized at [facility]. Impression: Normal chest.
--- NOTE | ~2024-09-21 | CT_ITS ---
Non-contrast Head CT History: Syncope COMPARISON: 10/12/2023 Technique: Axial non-contrast imaging of the brain was performed. Dose reduction technique was used on this scan by utilizing automated exposure control and iterative reconstruction technique. The dose -length product (DLP) was 681.00 mGy-cm. Findings: There is no evidence of intracranial hemorrhage, mass lesion, or acute infarct. Brain par enchyma appears normal. The ventricles and subarachnoid spaces are normal in size. The calvarium ap pears normal. The visualized paranasal sinuses and mastoid air cells are clear. Impression: No significant abnormality seen. Reviewed, dictated and finalized at location . Impression: No significant abnormality seen.
--- NOTE | ~2024-09-21 | CT_ITS ---
Clinical Indication: Chest pain CT Scan of the Chest with Contrast: Technique: Contiguous sections were acquired throughout the chest after intravenous administration of 100 cc of Omnipaque 350. Dose reduction technique was used on this scan by utilizing automated expos ure control and iterative reconstruction technique. The dose-length product (DLP) was 462.85 mGy-cm. COMPARISON: 10/22/2023 Findings: There is no evidence of any significant mediastinal, hilar or axillary lymphadenopathy. There is no f illing defect in the pulmonary arterial tree to suggest pulmonary embolus. There is no evidence of ao rtic dissection or aneurysm. There is no evidence of pleural or pericardial effusion. The lungs are clear. No pulmonary nodules or infiltrates are noted. Images through the upper abdomen reveal no abnormalities. Impression: No evidence of pulmonary embolus, aortic dissection, or aortic aneurysm. Clear lungs. Reviewed, dictated and finalized at [facility]. Impression: No evidence of pulmonary embolus, aortic dissection, or aortic aneurysm. Clear lungs.
--- NOTE | 2024-09-21 03:38 | ECG_ITS ---
Test Date: 2024-09-21 03:49:38 Measurements Intervals Atkinson Rate: 99 P: 50 NM: 125 QRS: 75 QRSD: 86 T: 48 QT: 332 QTc: 427 Interpretive Statements SINUS RHYTHM Compared to ECG 10/12/2023 08:47:26 Short NM interval no longer present Electronically Signed On 09-21-2024 14:41:10 CDT by Sonny Kolb M.D.
--- OUTSIDE RECORDS SUMMARY | 2024-09-21 03:38 | XMS_ITS | Data Portability ---
Author Organization [facility] Address [address] [place] [address] Assessment No assessment recorded. Plan of Treatment [...] Vaccine Type Date Status Note Provider Nam surendra and Address Organization Details Recorded Time COVID-19, mRNA, LNP-S, PF, 30 mcg/0.3 mL dose 02/15/2021 completed [facility] [address] [place], [address], [place] [facility] 02/17/2021 18:25:11 Past Encounters Encounter ID Performer Location Encounter Start Date Encounter Closed Date Diagnosis/Indication Diagnosis SNOMED-CT Code Diagnosis ICD10 Code Diagnosis Note [id number] Casimiro Soriano [facility] [address] [place] [address] 02/15/2021 19:03:13 02/15/2021 21:29:27 Administration of SARS-CoV-2 antigen vaccine [id number] Z23 Patient consents to the Pfizer COVID [...] Recorded Advance Directives Directive None Recorded Payers Insurance Date Sequence Insurance Name Policy Number Policy Grubbs Covered Member ID Grubbs Member ID Guarantor Name 03/28/2021 1 [employer] [facility] (PPO) [id number] Shadi Sylvester [id number] Della Sylvester OBGyn Episode No OBEpisode recorded.
--- OUTSIDE RECORDS SUMMARY | 2024-09-21 03:38 | XMS_ITS ---
Author Organization [facility] Address [address] [facility] [address] [place] [address] Care Team Providers Care Hydrate Control Tender Name Role Phone Dayami Castillo Primary Care Provider Unavailab Magdalena Martinez Unavailable [phone] Vickie Adams Unavailable [phone] REASON FOR VISIT Pt had a family emergency, did not have time to leave a message Social History Sex Assigned At : Social History Observation Description Sex Assigned At Female Encounters Encounter Location Date Provider Diagnosis [facility] [address] [facility] [address] [place] [address] 05/24/2024 Vickie Adams Plan Of Treatment Next Appt Details Provider Name:Magdalena espinoza, 10/04/2024 08:45:00 AM, [address], [facility] [address], [place], [address], Progress Notes * ORTIZ BRADFORD LDOB: (39 yo F)Acc No.[id number]:05/24/2024 Patient: Kuldeep ELAMORTIZ SHOEMAKER Provider: Brian ADAMS LCSW :1985 A ge:38 Y S ex:Female Date:05/24/2024 Address:[address] [place] Pcp:Dayami COBB Data: * Chief Complaints: * 1 . Pt had a family emergency, did not have time to leave a message. * Medical History: * Vitals: Assessment: Plan: * Treatment: * Billing Information: * Visit Code: * Procedure Codes: * Electronic signature of Vickie Adams LCSW on 09/21/2024 at 03:38 AM CDT Sign off status: Pending Signatures: No Ad Hoc Signature Added * Provider: Brian ADAMS LCSW Date: 0 05/24/2024 Generated for Estrella ballard/Afua/Mejia on: 0 09/21/2024 03:38 AM CDT
--- OUTSIDE RECORDS SUMMARY | 2024-09-21 03:39 | XMS_ITS | Clinical Summary ---
[facility] Address [address] [place] [address] Care Team Providers Care Radiology Transporter Name Role Phone Unavailable Primary Care Provider Unavailabl e Allergies Active Allergy Reactions Criticality Noted Date Comments Macrolide Antibiotics Nausea and Vomiting Low 08/03 Oxycodone Rash Low 08/04/2023 Sulfa (Sulfonamide Antibiotics) Photosensitivity,Rash [facility] 03/10/2019 Medications omeprazole (PriLOSEC) 20 mg Capsule, [...] mouth 2 times daily. 120 Tablet 3 4 Active Active Problems No known active [...] Health Maintenance Due Date Last Done Comments DTAP/TDAP/TD VACCINES (1 - Tdap) 08/23/2003 HEPATITIS B VACCINES (1 of 3 - 19+ 3-dose series) 08/23/2003 COVID-19 Vaccine (2 - season) 2023 02/15/2021 BREAST CANCER SCREENING 2024 INFLUENZA VACCINE (#1) 2024 0, 12/03/2018 HPV VACCINES Aged Out No longer eligi ble based on patient's age to complete this topic Insurance [facility] CHOICE [id number]
--- OUTSIDE RECORDS SUMMARY | 2024-09-21 03:39 | XMS_ITS | Patient Health Record ---
Author Organization [facility] [employer] [facility] Address [address] [facility] [address] [place] [address] Care Team Providers Care Tissue Specialist Name Role Phone Dayami Castillo Primary Care Provider Unavailab Magdalena Martinez Unavailable [phone] Vickie Patino Unavailable [phone] Eliana Tabor Unavailable [phone] Mitzi Braswell Unavailable [phone] Allergies Allergen (clinical drug ingredient) Drug/Non Drug [...] tablet in the morning Oral Once a day; Duration: 90 days total dose 450mg Active buPROPion HCl ER (XL) 150 MG 1 tablet in the morning Orally Once a day; Duration: 90 days total dose 450mg Active Topiramate 25 MG 1 tablet Oral Once a day; Duration: 30 days appointment needed Active Venlafaxine HCl ER 75 MG 1 capsule Oral Once a day; Duration: 90 days Active Omeprazole 40 MG Oral 05/24/2023 Ac tive Amitriptyline HCl 75 MG TAKE 1 TABLET BY MOUTH EVERY NIGHT AT BEDTIME Oral; Duration: 30 Days Active Lidocaine 5% External 05/24/2023 Active Cyclobenzaprine HCl 10 MG Oral 05/24/2023 Active Rexulti 4 mg 1 tablet Oral daily; Duration: 21 days 21 days per insurance requirement Active Ondansetron 4 MG Oral 05/24/2023 Ac [...] W/U Status Risk Notes Problem Cannabis dependence (63385894) Cannabis dependence, uncomplicated (F12.20) 05/24/19 Active confirmed Problem Mild recurrent major depression (24411941) Major depressive disorder, recurrent, mild (F33.0) 05/24/19 Active confirmed Problem Severe recurrent major depression without psychotic features (01804856) Major depressive disorder, recurrent severe without psychotic features (F33.2) Active confirmed Problem Generalized anxiety disorder (95783432) Generalized anxiety disorder (F41.1) 05/24/19 Active confirmed Problem Post-traumatic stress disorder (35361594) Post-traumatic stress disorder, unspecified (F43.10) Active confirmed Problem Insomnia disorder related to another mental disorder (61184240) Insomnia due to other mental disorder (F51.05) 05/24/19 24 Active confirmed Problem Attention deficit hyperactivity disorder, combined type (62007255) Attention-deficit hyperactivity disorder, combined type (F90.2) 05/24/19 Active confirmed Problem Chronic post-traumatic stress disorder (331746790) Chronic posttraumatic stress disorder (F43.12) Active confirmed Vital Signs Heart Rate 103 /min 05/23/2024 166 Blood pressure diastolic 84 mm Hg 05/23/2024 166 Height-cm 152.40 cm 05/23/2024 166 Weight-kg 75.3 kg 05/23/2024 166 Height 60.00 in 05/23/2024 166 Blood pressure systolic 122 mm Hg 05/23/2024 166 Weight 166 lbs 05/23/2024 166 BMI 32.42 kg/m2 05/23/2024 166 Encounters Encounter Location Date Provider Diagnosis [facility] [address] [address] 04/20/2024 Magdalenacallie Caldera Attention-deficit hyperactivity disorder, combined type F90.2 [facility], [facility] [address] [place] [address] 04/26/2024 Magdalena Kurilla Attention-deficit hyperactivity disorder, combined type F90.2 [place] [address] [place] [address] 05/02/2024 Magdalena Kurmeche Attention-deficit hyperactivity disorder, combined type F90.2 [facility], [facility] [address] [place] [address] 05/22/2024 Magdalenacallie Caldera Generalized anxiety disorder F41.1 [facility] [address] [place] [address] 05/24/2024 Magdalenacallie Caldera [facility] [address] [place] [address] 09/05/2024 Magdalenacallie Caldera Major depressive disorder, recurrent severe without psychotic features F33.2 [place] [address] [place] [address] 04/19/2024 Magdalenacallie Caldera [facility] [address] [place] [address] 04/19/2024 Magdalenacallie Caldera [facility], [facility] [address] [facility] [address] [place] [address] 11/17/2023 Eliana Tabor Major depressive disorder, recurrent, mild F33.0 ; Chronic posttraumatic stress disorder F43.12 ; Insomnia due to other mental disorder F51.05 ; Generalized anxiety disorder F41.1 ; Attention-deficit hyperactivity disorder, combined type F90.2 and Cannabis dependence, uncomplicated F12.20 [place] [address] [place] [address] 05/23/2024 Magdalena Caldera Encounter for screening for depression Z13.31 ; Nicotine use Z72.0 ; Encounter for screening for cardiovascular disorders Z13.6 ; Major depressive disorder, recurrent severe without psychotic features F33.2 ; Generalized anxiety disorder F41.1 ; Post-traumatic stress disorder, unspecified F43.10 and Attention-deficit hyperactivity disorder, combined type F90.2 [facility], [facility] [address] [place] [address] 07/11/2024 Magdalena Caldera [facility] [employer] [address] [place] [address] 08/07/2024 Magdalenacallie Caldera [facility] [address] [place] [address] 01/17/2024 Mitzi Braswell [facility] [address] [place] [address] 04/19/2024 Magdalena Caldera Major depressive disorder, recurrent severe without psychotic features F33.2 ; Generalized anxiety disorder F41.1 ; Post-traumatic stress disorder, unspecified F43.10 and Attention-deficit hyperactivity disorder, combined type F90.2 Assessments Encounter Date Diagnosis (ICD Code) Assessment [...] if misses). Or consider decrease topamax again. 04/20/2024 Attention-deficit hyperactivity disorder, combined type (ICD-10 - F90.2) 05/22/2024 Generalized anxiety disorder (ICD-10 - F41.1) 05/23/2024 Encounter for screening for depression (ICD-10 - Z13.31) 09/05/2024 Major depressive disorder, recurrent severe without psychotic features (ICD-10 - F33.2) 04/26/2024 Attention-deficit hyperactivity disorder, combined type (ICD-10 - F90.2) 04/19/2024 Major depressive disorder, recurrent severe without psychotic features (ICD-10 - F33.2) 04/19/2024 Generalized anxiety disorder (ICD-10 - F41.1) 11/17/2023 Chronic posttraumatic stress disorder (ICD-10 - F43.12) cont topiramate 25mg daily 04/19/2024 Post-traumatic stress disorder, unspecified (ICD-10 - F43.10) 05/02/2024 Attention-deficit hyperactivity disorder, combined type (ICD-10 - F90.2) Electronic Prior Authorization was requested for Methylphenidate HCl ER (OSM) 18 MG Tablet Extended Release. Provider can order medication once approval received. 05/23/2024 Nicotine use (ICD-10 - Z72.0) 11/17/2023 Insomnia due to other mental disorder (ICD-10 - F51.05) cont trazodone 150mg takes 1/2 tab qhs prn insomnia practice good sleep hygiene 11/17/2023 Generalized anxiety disorder (ICD-10 - F41.1) manageablemeds, therapy as above 05/23/2024 Encounter for screening for cardiovascular disorders (ICD-10 - Z13.6) 04/19/2024 Attention-deficit hyperactivity disorder, combined type (ICD-10 - F90.2) 05/23/2024 Major depressive disorder, recurrent severe without psychotic features (ICD-10 - F33.2) 11/17/2023 Attention-deficit hyperactivity disorder, combined type (ICD-10 - F90.2) increase NDRI decrease cannabis 05/23/2024 Generalized anxiety disorder (ICD-10 - F41.1) [...] Details Provider Name:Magdalena espinoza, 10/04/2024 08:45:00 AM, [address], [facility], [place], [address], Insurance Providers Payer Name Payer Address Payer Phone Subscriber Number Group Number Insured Name Patient Relationship to Insured Coverage Start Date Coverage End Date [facility] [address] [address] [place] [address] [phone] [id number] VIV PRABHAKAR Spouse - patient is the spouse of the insured Medical (General) History Medical History History ICD Code Problems: Attention deficit hyperactivit y disorder, combined type Cannabis dependence Generalized anxiety disorder Insomnia disorder related to another men earnest disorder Mild recurrent major depression Posttraumatic stress disorder , Surgical History Surgery Date(Month/Year) Sinus surgery 03/08/2004 Endometrial ablation (99017) 03/08/2010 Hysterectomy (91791) 03/08/2011 Procedure on neck (302142187) replacemen t disc 09/05/2022 Laminotomy (843846669) 11/06/2022 SI joint fusion 06/03/2023 Hospitalization History Reason Date(Month/Year) [facility] for SI 03/2024
--- OUTSIDE RECORDS SUMMARY | 2024-09-21 03:39 | XMS_ITS | Encounter Summary ---
Author Organization [facility] [employer] [facility] Address [address] [place] [address] Care Team Providers Care Muffler Hand Name Role Phone Unavailable Primary Care Provider Unavailabl e Encounter Details Date Type Department Care Team (Late st Contact Info) Description 08/05/2023 Abstract [facility] Oncology and Hematology - [place] [address] [facility] [address] [place] [address] Deric Vigil MD [address] [facility] [address] [place] [address] Social History Tobacco Use Types [...]
--- OUTSIDE RECORDS SUMMARY | 2024-09-21 03:39 | XMS_ITS | Patient Health Record ---
Author Organization [facility] Address [address] [place] [address] Care Team Providers Care Needle Grinder Name Role Phone Brigette Botello Primary Care Provider Allergies Allergen (clinical drug ingredient) Drug/Non Drug [...] Problem Status W/U Status Risk Notes Problem 910981037 Cannabis use, unspecified, uncomplicated (F12.90) Active confirmed Problem 85023402 Bipolar II disorder (F31.81) Active confirmed Problem Other problems related to social environment (Z60.8) Active confirmed Problem Anxiety (88161586) Anxiety (F41.9) Active confirmed Problem 871187872 Family dynamics problem (Z63.9) Active confirmed Problem 06432431 Vitamin D deficiency (E55.9) Active confirmed Problem 99202721 Dysthymia (F34.1) Active confirmed Problem Depressive disorder (disorder) (13931350) Depression, unspecified depression type (F32.9) Active confirmed Problem 55202042 Nicotine dependence due to vaping non-tobacco product (F17.200) Active confirmed Problem 93899043 Insomnia due to mental disorder (F51.05) Active confirmed Problem 661343059 Panic attacks (F41.0) Remission phase confirmed Problem 33824719 Generalized anxiety disorder (F41.1) Active confirmed Problem 909923348 Posttraumatic stress disorder, chronic/delayed onset (F43.10) Active confirmed Problem 64163542 Bipolar II disorder, most recent episode major depressive (F31.81) Active confirmed Plan Of Treatment No Information Insurance Providers Payer Name Payer Address Payer Phone Subscriber Number Group Number Insured Name Patient Relationship to Insured Coverage Start Date Coverage End Date [address] [place] [address] [id number] Purvi [id number] Self - patient is the insured Medications Administered Medication Instructions Date of Administration Dosage Notes Dexamethasone 10mg 10/03/2019 10 mg Dexamethasone 10mg 10/29/2019 10 mg Patien t tolerated well.DemetriusShannon odonnell 10/31/2019 05:28:28 PM > Medical (General) History Medical History History ICD Code YANDY (generalized anxiety disorder) F41.1 Chronic posttraumatic stress disorder F4 3.12 Major depression, recurrent, full remiss ion F33.42 Other problems related to social environ ment Z60.8 Cannabis use without complication F12.90 Anxiety F41.9 Insomnia, unspecified G47.00 Depression, unspecified depression type F32.9 VITAMIN D DEFICIENCY (ICD-26 8.9) (LHE02-J72.9) DIZZINESS (ICD-780.4) (ZVP62-W58) LUMP OR MASS IN BREAST (ICD-611.72) (PVQ20-H59.0) VITAMIN B12 DEFICIENCY (ICD-266.2) (VBA98-H93.8) HX OF BARIATRIC SURGERY (ICD-V45.86) (CYC27-W33.84) VITAMIN B12 DEFICIENCY (ICD-266.2) (TFM20-Q35.8) CANDIDIASIS OF SKIN (ICD-112.3) (KBU41-E58.2) DYSURIA (ICD-788.1) (LDH94-E80.0) GENERALIZED ANXIETY DISORDER (ICD-300.02) (FRP88-G02.1) URINARY TRACT INFECTION, ACUTE (ICD-599.0) (BWV86-O44.0) URINARY URGENCY (ICD-788.63) (EDE23-V86.15) ERUPTION OF FEMALE PERINEUM (ICD-624.8) (MKL64-F35) VAGINAL DISCHARGE (ICD-623.5) (BHW59-B26.8) BARIATRIC SURGERY STATUS (ICD-V45.86) (PGF28-C95.84) CHRONIC POST-TRAUMATIC STRESS DISORDER (ICD-309.81) (GRW43-G14.12) DEPRESSION, MAJOR, RECURRENT, IN FULL REMISSION (ICD-296.36) (MRB39-N19.42) SOCIAL ADJUSTMENT PROBLEM (ICD-312.20) (TRI08-I82.8) CANNABIS USE, UNSPECIFIED, UNCOMPLICATED (XZP01-Y51.90) ANXIETY (ICD-300.00) (UMW08-T87.9) HX OF HYSTERECTOMY (ICD-V88.02) (FNR66-N69.710) INSOMNIA, CHRONIC (ICD-780.52) (TPD97-K08.00) DEPRESSION (ICD-311) (ADZ73-P90.9) Surgical History Surgery Date(Month/Year) 2 Csections Hysterectomy partial--2012Ba riatric 2014
[2024-09-21 03:47] VITALS: BP 114/77; PULSE 99; RESP 22; TEMP 36.9; O2SAT 100
--- OUTSIDE RECORDS SUMMARY | 2024-09-21 03:56 | XMS_ITS | Clinical Summary ---
Author Organization [facility] Address [facility] [place] [address] Care Team Providers Care Apple Solutions Consultant Name Role Phone Sarah Case [facility] Primary Care Provider [phone] Allergies Active Allergy Reactions Criticality Noted Date [...] needed for Nausea. 20 tablet 4 Active Social History Tobacco Use Types Packs/Day Years [...] Comments Blood Pressure 107/62 03/14/2024 8:35 AM DESIGN TECHNOLOGY PROFESSOR Pulse 78 03/14/2024 8:35 AM DESIGN TECHNOLOGY PROFESSOR Temperature 36.7 C (98 F) 03/14/2024 8:35 AM DESIGN TECHNOLOGY PROFESSOR Respiratory Rate 16 03/14/2024 8:35 AM DESIGN TECHNOLOGY PROFESSOR Oxygen Saturation 100% 03/14/2024 8:35 AM DESIGN TECHNOLOGY PROFESSOR Inhaled Oxygen Concentration - - Weight 73.9 kg (163 lb) 03/12/2024 12:36 PM DESIGN TECHNOLOGY PROFESSOR Height 152.4 cm (5') 03/12/2024 12:36 PM DESIGN TECHNOLOGY PROFESSOR Body Mass Index 31.83 03/12/2024 12:36 PM DESIGN TECHNOLOGY PROFESSOR Plan of Treatment Health Maintenance Due Date Last Done Comments Annual Physical 08/23/1987 Hepatitis C 2002 Hepatitis B Vaccines (1 of 3 - 19+ 3-dose series) 08/23/2003 COVID-19 Vaccine ( - 2023-2 5 season) 2023 12/08/2022, 02/15/2021 Mammogram Screening 2024 DTaP, Tdap and Td Vaccines ( 2 - Td or Tdap) 07/12/2031 07/11/2021, 10/20/2010 [...] 5 Years) and At-Risk Patients (6 to 49 Years) Aged Out No longer eligible b ased on patient's age to complete this topic RSV Immunizations Under 20 Months Aged Out No longer eligible b ased on patient's age to complete this topic Insurance [employer] Advance Directives Documents on File Type Date Recorded Patient Chess Instructor Expl anation Advance Directives and Living Will [...] 10/20/2010 12:00 AM ADVANCED DIRECTIVES Care Teams [employer] Consultant Relationship Specialty Start Date End Date Sarah Case FNP PCP - General Nurse Practitioner Family 08/04/23
[2024-09-21 04:07] VITALS: PULSE 97
[2024-09-21 04:17] LABS: Hematocrit 39.2 % (37.0-47.0); Hemoglobin 13.1 g/dL (12.0-15.0); Immature Granulocyte Percent A 0.2 % (0-0.5); Lymphocytes Absolute Auto 1.59 K/mm3 (0.9-3.2); Mean Corpuscular HGB Conc 33.4 g/dl (32-36); Mean Corpuscular Hemoglobin 31.9 pg (26-34); Mean Corpuscular Volume 95.4 fl (80-100); Nucleated Red Blood Cells Absolute Auto 0.000 K/mm3 (0.0-0.012); Nucleated Red Blood Cells Perc 0.0 % (0.0-0.2); Platelet Count Result 337 k/mm3 (150-375); Red Blood Count 4.11 M/mm3 (4.2-5.4); White Blood Count 4.7 K/mm3 (4.5-10.0)
[2024-09-21 04:32] LABS: Alanine Aminotransferase 31 U/L (6-35); Albumin Level 4.3 g/dL (3.5-5.1); Alkaline Phosphatase 59 U/L (38-126); Anion Gap 10 mmol/L (4-12); Aspartate Amino Transferase 35 U/L (14-36); Bilirubin,Total 0.7 mg/dL (0.2-1.3); Blood Urea Nitrogen 6 mg/dL (7-17); Calcium 9.2 mg/dL (8.4-10.2); Carbon Dioxide 26 mmol/L (22-30); Chloride 102 mmol/L (98-107); Estimated CRCL calculation 71 ml/min; Estimated Glomerular Filt Rate > 60; Glucose 103 mg/dL (65-110); Potassium 3.3 mmol/L (3.4-5.0); Sodium 138 mmol/L (137-145); Total Protein 7.5 g/dL (6.3-8.2)
[2024-09-21 04:42] LABS: Troponin I < 0.012 ng/mL (0.000-0.034)
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
[2024-09-21] MEDS: LACTATED RINGERS 1,000 ML 999 ML IV CONT (05:08)
[2024-09-21] MEDS: MORPHINE SULFATE (*CRX) 2 MG/ML INJ IV PUSH (05:08)
[2024-09-21 07:07] LABS: Troponin I < 0.012 ng/mL (0.000-0.034)
[2024-09-21 07:31] VITALS: BP 114/65; PULSE 76; RESP 13; O2SAT 100
== END 2024-09-21 07:40 | disposition home or self-care (01) ==
PROVIDERS: Emergency Provider Student in an Organized Health Care Education/Training Program; PCP Nurse Practitioner Family
DX: F43.9 Reaction to severe stress, unspecified (principal); R55 Syncope and collapse; R07.9 Chest pain, unspecified; Z86.711 Personal history of pulmonary embolism; K21.9 Gastro-esophageal reflux disease without esophagitis; K90.0 Celiac disease; M35.2 Behcet's disease; F41.8 Other specified anxiety disorders; F43.10 Post-traumatic stress disorder, unspecified; F17.290 Nicotine dependence, other tobacco product, uncomplicated; Z98.1 Arthrodesis status; Z98.84 Bariatric surgery status; Z90.710 Acquired absence of both cervix and uterus; Z79.899 Other long term (current) drug therapy
CPT/HCPCS: 36415; 70450; 71045; 71275; 80053; 84484; 85025; 93005; 96361; 96374; 99284; J2270; J7120; Q9967

== ENCOUNTER 2024-11-24 08:45 | Outpatient (RCR) | payer OTHER, SELFPAY ==
--- NOTE | 2024-10-24 10:29 | OPREHPOC ---
Outpatient Therapy Plan of Care This is a Multidisciplinary Plan of Care that may contain components documented by all disciplines (PT, OT, and ST.) PT Problem 1 PT Problem #1 Knowledge Deficit PT Goal 1 Goal / Goal Update [place] with HEP Target Visit 4 PT Goal 2 Goal / Goal Update Report no pain greater then 2/10 for 2 consecutive weeks Target Visit 8 PT Problem 2 PT Problem #2 Impaired Strength PT Goal 1 Goal / Goal Update 1. Improve sherie hip abductors strength to 4/5 to improve lateral pelvic stability with ADL performance 2. Patient will improve lower abdominal strength to 4/5 to improve pelvic stability with functional activity Target Visit 8 PT Problem 3 PT Problem #3 Impaired Gait PT Goal 1 Goal / Goal Update Patient will ambulate with absence of Trendelenburg pattern of right hip. Target Visit 8 PT Problem 4 PT Problem #4 Impaired Functional ADLs PT Goal 1 Goal / Goal Update Patient will demonstrate proper squatting technique for lifting of 10# x 5 Target Visit 8
--- NOTE | 2024-10-24 10:29 | PTOPEVAL1 ---
Assessment and note entered by Porfirio Arteaga, PT Evaluation Information Assessment Status Evaluation Diagnosis Z98.1-Arthrodesis status ICD-10 Condition Codes (PT) Pain in low back M54.50,Radiculopathy, lumbar region M54.16 Onset October 2020 Subjective Information Reports that she has had back pain fairly consistently for the last 4 years. She is currently taking medication for pain and it is helping somewhat. Reports that she is getting numbness, tingling, and pain in the right leg leading to some falls. 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 Reports that she will occasionally get tripped up in her feet at times but does not feel that those have contributed to a recent fall. Sleeping is mixed, she will occasionally wake up and have trouble going back to sleep. Reports that she has tried to take off some weight but she has had trouble maintain muscle strength and tolerating penitentiary cardiovascular activity. She also does not trust herself going down stairs. She wants to do therapy to emphasize a solid exercise program to build core and leg strength for progress to higher intensity strengthening. Reported Pain Level Pain Score 3: Self Report Assessment PT Clinical Summary Patient presents with signs and symptoms consistent with stenotic type lower back pain increased by extension and decreased by flexion/ decompression. Patient will benefit form skilled therapy to improve lower abdominal strength, core activation, and and hip stabilization with transition to functional joint mechanics. Plan of Care Interventions Hot Pack/Cold Pack,Neuro Re-education,Therapeutic Activities,Therapeutic Exercise PT Services Indicated Yes Treatment Frequency and 2x/week for 8 visits Duration These treatments will address the objective and functional deficits as defined above. The patient will be advanced safely and appropriately in order for the patient to progress towards his/her prior level of function. Additional exercises will be introduced and as well as a comprehensive home exercise program upon discharge, if needed, ?to ensure carryover of functional gains achieved in the clinic. This treatment plan has been reviewed and agreement upon by the patient.
--- NOTE | 2024-11-02 11:36 | PCPTNOTE ---
pt cancelled todays appt, no reason given
--- NOTE | 2024-11-08 13:03 | PCPTNOTE ---
Pt was called after a No call no show to her treatment session. Pt stated she had her appointment times confused and was reminded of her next scheduled treatment.
--- NOTE | 2024-11-17 09:17 | PCPTNOTE ---
pt no call no showed appt this date, called and left VM to remind pt of next appt
--- NOTE | 2024-11-21 11:18 | PCPTNOTE ---
pt no call no showed appt this date, called and left VM to remind pt of next appt
--- NOTE | 2024-11-24 09:35 | OPREHPOC ---
Outpatient Therapy Plan of Care This is a Multidisciplinary Plan of Care that may contain components documented by all disciplines (PT, OT, and ST.) PT Problem 1 PT Problem #1 Knowledge Deficit PT Goal 1 Goal / Goal Update [place] with HEP Target Visit 4 Progress Met PT Goal 2 Goal / Goal Update Report no pain greater then 2/10 for 2 consecutive weeks 11/24/24 worst 7/10 in last week Target Visit 8 PT Problem 2 PT Problem #2 Impaired Strength PT Goal 1 Goal / Goal Update 1. Improve sherie hip abductors strength to 4/5 to improve lateral pelvic stability with ADL performance 2. Patient will improve lower abdominal strength to 4/5 to improve pelvic stability with functional activity 11/24/24 1. R: 3+/5 L: 4/5 2. MET Target Visit 8 Progress Partially Met PT Problem 3 PT Problem #3 Impaired Gait PT Goal 1 Goal / Goal Update Patient will ambulate with absence of Trendelenburg pattern of right hip. Target Visit 8 Progress Met PT Problem 4 PT Problem #4 Impaired Functional ADLs PT Goal 1 Goal / Goal Update Patient will demonstrate proper squatting technique for lifting of 10# x 5 -------- 11/24/24 progressing but requires verbal, tactile, visual cueing Target Visit 8 Progress Not Met
--- NOTE | 2024-11-24 09:35 | PTOPPROG ---
Assessment and note entered by Kassie Copeland, PT Evaluation Information Assessment Status Progress Diagnosis Z98.1-Arthrodesis status ICD-10 Condition Codes (PT) Pain in low back M54.50,Radiculopathy, lumbar region M54.16 Onset October 2020 Subjective Information Pt reports being able to go to a [employer] fair last weekend and she was sore the next day. She was lifting various objects with absence of back pain but started to get to 7/10 by the end of the day. She was bending, lifting, and twisting a lot. She was able to carry a laundry basket while engaging her core to prevent increased pain. She has not been able to do that for months and was so proud of herself. 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 Assessment PT Clinical Summary Patient's condition has improved overall as evidenced by advancements in symptoms, mobility, and strength. However, some limitations are still present such as hip abductor weakness and functional lifting/transfer training. Patient would benefit from continued skilled PT services to address the above listed impairments, facilitate a return to their PLOF for senior care improvement. Plan of Care Interventions Hot Pack/Cold Pack,Neuro Re-education,Therapeutic Activities,Therapeutic Exercise PT Services Indicated Yes Treatment Frequency and 2x/week for 8 visits Duration These treatments will address the objective and functional deficits as defined above. The patient will be advanced safely and appropriately in order for the patient to progress towards his/her prior level of function. Additional exercises will be introduced and as well as a comprehensive home exercise program upon discharge, if needed, ?to ensure carryover of functional gains achieved in the clinic. This treatment plan has been reviewed and agreement upon by the patient.
--- NOTE | 2024-12-01 14:16 | PCPTNOTE ---
Pt called and cancelled due to family emergency. Will call to reschedule next week.
--- NOTE | 2024-12-26 09:33 | PTOPDC ---
Assessment and note entered by Saritha Haider, PT Evaluation Information Assessment Status Discharge - Pt Not Present Diagnosis Z98.1-Arthrodesis status ICD-10 Condition Codes (PT) Pain in low back M54.50,Radiculopathy, lumbar region M54.16 Onset October 2020 Assessment PT Clinical Summary Pt attended 6 of 13 scheduled visits, with two cancellations and five no-call no-show appts. She had been able to make some improvements in her symptoms and strength however due to non- attendance policy patient will have to be discharged at this time. Should she be able to attend therapy consistently in the future, she may reinitiated therapy with a new prescription. Plan of Care PT Services Indicated No
== END 2024-12-26 09:40 | disposition home or self-care (01) ==
LOC: ANHGOSHPT 08:45
PROVIDERS: PCP Nurse Practitioner Family; Visit Provider Family Medicine
DX: M54.50 Low back pain, unspecified (principal); G89.29 Other chronic pain; Z98.890 Other specified postprocedural states; Z98.1 Arthrodesis status
CPT/HCPCS: 97110; 97112; 97140; 97161; 97530

== ENCOUNTER 2025-01-24 08:35 | Outpatient (CLI) | payer OTHER, SELFPAY ==
[2025-01-24 13:06] LABS: Hematocrit 38.9 % (37.0-47.0); Hemoglobin 12.7 g/dL (12.0-15.0); Immature Granulocyte Percent A 0.2 % (0-0.5); Lymphocytes Absolute Auto 1.11 K/mm3 (0.9-3.2); Mean Corpuscular HGB Conc 32.6 g/dl (32-36); Mean Corpuscular Hemoglobin 31.4 pg (26-34); Mean Corpuscular Volume 96.0 fl (80-100); Nucleated Red Blood Cells Absolute Auto 0.000 K/mm3 (0.0-0.012); Nucleated Red Blood Cells Perc 0.0 % (0.0-0.2); Platelet Count Result 352 k/mm3 (150-375); Red Blood Count 4.05 M/mm3 (4.2-5.4); White Blood Count 4.3 K/mm3 (4.5-10.0)
[2025-01-24 15:27] LABS: Parathyroid Intact 41.3 pg/mL (14.5-75.2)
[2025-01-24 17:18] LABS: Iron 84 ug/dL (37-170)
[2025-01-24 17:28] LABS: Percent Iron Saturation 21 % (20-50)
[2025-01-24 17:34] LABS: Alanine Aminotransferase 17 U/L (6-35); Albumin Level 4.1 g/dL (3.5-5.1); Alkaline Phosphatase 66 U/L (38-126); Anion Gap 8 mmol/L (4-12); Aspartate Amino Transferase 29 U/L (14-36); Bilirubin,Total 0.7 mg/dL (0.2-1.3); Blood Urea Nitrogen 7 mg/dL (7-17); Calcium 9.3 mg/dL (8.4-10.2); Carbon Dioxide 28 mmol/L (22-30); Chloride 102 mmol/L (98-107); Cholesterol 207 mg/dL (0-200); Estimated Glomerular Filt Rate > 60; Glucose 76 mg/dL (65-110); HDL Direct 60 mg/dL; Magnesium 2.0 mg/dL (1.6-2.3); Potassium 4.0 mmol/L (3.4-5.0); Sodium 138 mmol/L (137-145); Total Protein 7.2 g/dL (6.3-8.2); Triglycerides 61 mg/dL (<150)
[2025-01-24 17:55] LABS: Ferritin 11.30 ng/mL (6.24-137)
[2025-01-24 18:10] LABS: Thyroid Stimulating Hormone 1.200 uIU/mL (0.465-4.680)
[2025-01-24 18:34] LABS: Hemoglobin A1C 5.4 % (<5.7)
[2025-01-24 18:45] LABS: Vitamin B12 996.0 pg/mL (239-931)
[2025-01-28 05:37] LABS: Vit. B1, Whole Blood 138.9 nmol/L (66.5-200.0)
== END 2025-01-24 08:36 | disposition home or self-care (01) ==
PROVIDERS: PCP Nurse Practitioner Family; Visit Provider Family Medicine
DX: Z02.1 Encounter for pre-employment examination (principal); Z98.84 Bariatric surgery status
CPT/HCPCS: 36415; 80053; 80061; 82306; 82607; 82728; 82746; 83036; 83540; 83550; 83735; 83970; 84425; 84443; 85025; 86480